=== PATIENT | female | born 1930 | race Caucasian/White ===

== ENCOUNTER 2016-10-05 11:52 | Outpatient (RCR) | payer MEDICARE, OTHER ==
--- OUTSIDE RECORDS SUMMARY | 2016-07-15 13:47 | XMS REPORT | Continuity of Care Document ---
Author Author [facility] Organization [facility] Address Unknown Phone Unavailable Care Team Providers Care Quality Control Industrial Engineer Name Role Phone RoAnthony pike PCP [phone] Source Comments Some departments are not documenting in the electronic medical record. If you do not see the information that you expected, contact Release of Information in the Health Information Management department at [phone] for further assistance in locating additional records.[facility] Active Allergies and Adverse Reactions Allergen Noted Date Severity Reactions Comments Lisinopril 05/22/2013 ANGIOEDEMA Patient has a history of chronic urticaria and angioedema, should not use angioedema. Current Medications Prescription Sig. Disp. Refills Start End Date Status Date hydrochlorothiazide Take 25 mg by mouth Active (HYDRODIURIL) 25 mg daily. tablet olmesartan(+) (BENICAR) Take 20 mg by mouth Active 20 mg tablet daily. glipiZIDE CR (GLUCOTROL Take 10 mg by mouth Active XL) 10 mg tablet daily. diphenhydrAMINE Take 25 mg by mouth every Active (BENADRYL) 25 mg capsule 6 hours as needed. omeprazole DR(+) Take 20 mg by mouth Active (PRILOSEC) 20 mg capsule daily. acetaminophen (TYLENOL) Take 500 mg by mouth Active 500 mg tablet every 6 hours as needed. ANTIOX Take by mouth. Active #11/OM3/DHA/EPA/LUT/GREGORY (OCUVITE ADULT 50+ PO) hydrOXYzine (ATARAX) 25 Take 1-4 tablets nightly 100 Tab 1 05/22/20 Active mg tablet for hives. May cause 13 sedation. cetirizine (ZYRTEC) 10 mg Take 1 Tab by mouth 90 Tab 3 05/22/20 Active tablet daily. 13 epinephrine(+) (EPIPEN Inject 0.3 mL to area(s) 2 Each 2 05/22/20 Active JR) 0.15 mg/0.3 mL as directed as Needed 13 (1:2,000) syringe (for severe swelling reaction, please seek emergent care). Active Problems Problem Noted Date Urticaria 05/22/2013 Overview: Urticaria etiology unknown, associated with angioedema. Outside labs revealed LFTs, eosinophils, and CA 125 were normal on 12/26/12. Negative urticaria/angioedema work up on 05/22/13. - Continue Hydroxyzine 25 mg qHS. If hives return, may increase by 25 mg nightly until symptoms resolve up to 100 mg per night. - Schedule f/u appt with PCP in 3 months - if symptoms continue to be well controlled on 25 mg Hydroxyzine, space to ever other night. If symptoms continue to be well controlled for another 3 months, may completely wean to see if Hydroxyzine is still necessary. May resume Hydroxyzine at any time if hives or angioedema returns. - Continue Zyrtec (cetirizine) 10 mg 1 tab a day - Try to avoid Benadryl, take if needed. - EpiPen Jr, X 2 and 2 refill prescribed in past (we did not give her the full dose due to her age and comorbidities) - Avoid SUSANA inhibitor Angioedema 05/22/2013 Overview: Angioedema is mostly facial, usually associated with urticaria. Has required intubation in past for swelling. - Angioedema and chronic urticaria lab work-up negative on 05/22/13 - EpiPen Jr, x2 and 2 refill prescribed today (we did not give her the full dose due to her age and comorbidities) - Avoid SUSANA inhibitor - Asked the patient to get a medical ID bracelet. Social History Tobacco Use Types Packs/Day Years Used Date Former Smoker 3 Quit: 01/06/1952 Alcohol Use Drinks/Week oz/Week Comments No Last Filed Vital Signs Vital Sign Reading Time Taken Blood Pressure 165/82 06/23/2013 11:03 AM CDT Pulse 79 06/23/2013 11:03 AM CDT Temperature 36.1 C (96.9 F) 06/23/2013 11:03 AM CDT Respiratory Rate 16 06/23/2013 11:03 AM CDT Height 1.636 m (5' 4.4") 06/23/2013 11:03 AM CDT Weight 81.194 kg (179 lb) 06/23/2013 11:03 AM CDT Body Mass Index 30.34 06/23/2013 11:03 AM CDT Oxygen Saturation - - Plan of Care Health Maintenance Due Date Last Done Comments Physical (Comprehensive) 1936 Exam Pertussis Vaccine 1940 Tetanus Vaccine 1946 Breast Cancer Screening 1969 Shingles Vaccine 1989 Osteoporosis Screening 1994 Prevnar/Pneumovax (#1) 1994 Influenza Vaccine 05/14/2015 Results from Last 3 Months Not on file
[2016-07-15 14:04] LABS: BASOPHILS % (AUTO) 0 % (0-10); EOSINOPHILS # (AUTO) 0.3 10^3/uL (0.0-0.3); EOSINOPHILS % (AUTO) 5 % (0-10); LYMPHOCYTES # (AUTO) 1.5 X 10^3 (1.0-4.0); LYMPHOCYTES % (AUTO) 24 % (12-44); MEAN CORPUSCULAR HEMOGLOBIN 30 PG (25-34); MEAN CORPUSCULAR HGB CONC 33 G/DL (32-36); MEAN CORPUSCULAR VOLUME 90 FL (80-99); MONOCYTES # (AUTO) 0.7 X 10^3 (0.0-1.0); MONOCYTES % (AUTO) 11 % (0-12); NEUTROPHILS # (AUTO) 3.9 X 10^3 (1.8-7.8); NEUTROPHILS % (AUTO) 61 % (42-75); PLATELET COUNT 234 10^3/uL (130-400); RED BLOOD COUNT 3.88 10^6/uL (4.35-5.85); RED CELL DISTRIBUTION WIDTH 12.7 % (10.0-14.5); WHITE BLOOD COUNT 6.4 10^3/uL (4.3-11.0)
[2016-07-15 14:31] LABS: ALBUMIN 3.7 G/DL (3.2-4.5); BILIRUBIN,TOTAL 0.2 MG/DL (0.1-1.0); CALCIUM 8.8 MG/DL (8.5-10.1); CREATININE SERUM 0.94 MG/DL (0.60-1.30); POTASSIUM 4.3 MMOL/L (3.6-5.0); TOTAL PROTEIN 6.2 G/DL (6.4-8.2)
[~2016-10-05 11:52] MED LIST: ALIS150T PO; ASP325T; ASP81TEC PO; AVALIDE; CETI10CA PO; DIAZ5TAB3 PO; DICL35CA PO; DIPH-633 PO; ETOD400T PO; FEXO-104 PO; GLBR2.5T; GLIM4TAB PO; GLIM4TAB56 PO; GLIP5TAB13 PO; GLYB1.253; HCT25T PO; HCTZ; HYDR-3062 PO; HYDR-31; HYDR-3820 PO; HYDR25TA4 PO; IRBE1TAB15; LORA10TA7 PO; METF500T4 PO; METH4TAB PO; MTF500T; MTF500T PO; OLME20TA21 PO; OLME20TA22 PO; OMEP-10; OMEP20TA33 PO; ONDA8TAB12 PO; ONDN4T; OXYC-12 PO; OXYC-465 PO; PRAV10TA PO; PRAV20TA3 PO; PRD20T PO; RANI25TA PO; RNT150T PO; ROCEPHIN IV; SIMV40TA2; SIMV40TA4 PO; [UNRECOGNIZED DRUG - REMARK]
[2016-10-05 13:11] LABS: BASOPHILS % (AUTO) 0 % (0-10); EOSINOPHILS # (AUTO) 0.3 10^3/uL (0.0-0.3); EOSINOPHILS % (AUTO) 5 % (0-10); LYMPHOCYTES # (AUTO) 1.7 X 10^3 (1.0-4.0); LYMPHOCYTES % (AUTO) 26 % (12-44); MEAN CORPUSCULAR HEMOGLOBIN 29 PG (25-34); MEAN CORPUSCULAR HGB CONC 33 G/DL (32-36); MEAN CORPUSCULAR VOLUME 89 FL (80-99); MEAN PLATELET VOLUME 8.9 FL (7.4-10.4); MONOCYTES # (AUTO) 0.7 X 10^3 (0.0-1.0); MONOCYTES % (AUTO) 11 % (0-12); NEUTROPHILS # (AUTO) 3.8 X 10^3 (1.8-7.8); NEUTROPHILS % (AUTO) 58 % (42-75); PLATELET COUNT 279 10^3/uL (130-400); RED BLOOD COUNT 4.11 10^6/uL (4.35-5.85); RED CELL DISTRIBUTION WIDTH 12.7 % (10.0-14.5); WHITE BLOOD COUNT 6.5 10^3/uL (4.3-11.0)
[2016-10-05 13:44] LABS: ALBUMIN 3.9 G/DL (3.2-4.5); BILIRUBIN,TOTAL 0.3 MG/DL (0.1-1.0); CALCIUM 9.3 MG/DL (8.5-10.1); CREATININE SERUM 1.17 MG/DL (0.60-1.30); POTASSIUM 4.5 MMOL/L (3.6-5.0); TOTAL PROTEIN 6.6 G/DL (6.4-8.2)
== END 2016-10-13 | disposition home or self-care (01) ==
LOC: ONC 11:52
PROVIDERS: ATTEND Internal Medicine Hematology & Oncology
DX: C56.2 Malignant neoplasm of left ovary (principal); C79.2 Secondary malignant neoplasm of skin; N18.3 Chronic kidney disease, stage 3 (moderate); M46.40 Discitis, unspecified, site unspecified; Z79.899 Other long term (current) drug therapy; Z92.21 Personal history of antineoplastic chemotherapy; Z45.2 Encounter for adjustment and management of vascular access device
CPT/HCPCS: 36591; 80053; 85025; 86304; 96523; 99213

== ENCOUNTER 2017-02-04 12:51 | Outpatient (RCR) | payer MEDICARE, OTHER ==
--- OUTSIDE RECORDS SUMMARY | 2016-11-23 13:07 | XMS REPORT | Continuity of Care Document ---
Author Author [facility] Organization [facility] Address Unknown Phone Unavailable Care Team Providers Care Medical Information Officer Name Role Phone RoAnthony pike PCP [phone] Source Comments Some departments are not documenting in the electronic medical record. If you do not see the information that you expected, contact Release of Information in the Health Information Management department at [phone] for further assistance in locating additional records.[facility] Active Allergies and Adverse Reactions Allergen [...]
[2016-12-28 12:57] LABS: BASOPHILS % (AUTO) 0 % (0-10); EOSINOPHILS # (AUTO) 0.2 10^3/uL (0.0-0.3); EOSINOPHILS % (AUTO) 3 % (0-10); LYMPHOCYTES # (AUTO) 1.4 X 10^3 (1.0-4.0); LYMPHOCYTES % (AUTO) 20 % (12-44); MEAN CORPUSCULAR HEMOGLOBIN 29 PG (25-34); MEAN CORPUSCULAR HGB CONC 32 G/DL (32-36); MEAN CORPUSCULAR VOLUME 89 FL (80-99); MEAN PLATELET VOLUME 9.2 FL (7.4-10.4); MONOCYTES # (AUTO) 0.7 X 10^3 (0.0-1.0); MONOCYTES % (AUTO) 10 % (0-12); NEUTROPHILS # (AUTO) 4.7 X 10^3 (1.8-7.8); NEUTROPHILS % (AUTO) 67 % (42-75); PLATELET COUNT 235 10^3/uL (130-400); RED BLOOD COUNT 4.13 10^6/uL (4.35-5.85); RED CELL DISTRIBUTION WIDTH 12.6 % (10.0-14.5); WHITE BLOOD COUNT 7.1 10^3/uL (4.3-11.0)
[2016-12-28 13:23] LABS: ALANINE AMINOTRANSFERASE 10 U/L (0-55); ALBUMIN 3.9 G/DL (3.2-4.5); ANION GAP 9 MMOL/L (5-14); ASPARTATE AMINO TRANSFERASE 19 U/L (5-34); BILIRUBIN,TOTAL 0.4 MG/DL (0.1-1.0); BLOOD UREA NITROGEN 20 MG/DL (7-18); BUN/CREATININE RATIO 23; CALCIUM 9.1 MG/DL (8.5-10.1); CARBON DIOXIDE 25 MMOL/L (21-32); CHLORIDE 100 MMOL/L (98-107); CREATININE SERUM 0.87 MG/DL (0.60-1.30); GFR ESTIMATED > 60; GLUCOSE 112 MG/DL (70-105); SODIUM 134 MMOL/L (135-145); TOTAL PROTEIN 6.7 G/DL (6.4-8.2)
== END 2017-02-21 | disposition home or self-care (01) ==
LOC: ONC 12:51
PROVIDERS: ATTEND Internal Medicine Hematology & Oncology
DX: C56.2 Malignant neoplasm of left ovary (principal); C79.2 Secondary malignant neoplasm of skin; N18.3 Chronic kidney disease, stage 3 (moderate); M46.40 Discitis, unspecified, site unspecified; Z79.899 Other long term (current) drug therapy; Z92.21 Personal history of antineoplastic chemotherapy; Z45.2 Encounter for adjustment and management of vascular access device
CPT/HCPCS: 36591; 80053; 85025; 86304; 96523; 99213

== ENCOUNTER 2017-06-10 10:55 | Outpatient (RCR) | payer MEDICARE, OTHER ==
[2017-03-18 11:51] LABS: BASOPHILS % (AUTO) 0 % (0-10); EOSINOPHILS # (AUTO) 0.2 10^3/uL (0.0-0.3); EOSINOPHILS % (AUTO) 2 % (0-10); LYMPHOCYTES # (AUTO) 1.5 X 10^3 (1.0-4.0); LYMPHOCYTES % (AUTO) 20 % (12-44); MEAN CORPUSCULAR HGB CONC 33 G/DL (32-36); MEAN CORPUSCULAR VOLUME 87 FL (80-99); MEAN PLATELET VOLUME 8.8 FL (7.4-10.4); MONOCYTES # (AUTO) 0.7 X 10^3 (0.0-1.0); MONOCYTES % (AUTO) 10 % (0-12); NEUTROPHILS % (AUTO) 68 % (42-75); PLATELET COUNT 304 10^3/uL (130-400); RED BLOOD COUNT 3.86 10^6/uL (4.35-5.85); RED CELL DISTRIBUTION WIDTH 12.7 % (10.0-14.5); WHITE BLOOD COUNT 7.4 10^3/uL (4.3-11.0)
[2017-03-18 11:52] LABS: MEAN CORPUSCULAR HEMOGLOBIN 28 PG (25-34)
[2017-03-18 12:30] LABS: ALBUMIN 3.7 GM/DL (3.2-4.5); BILIRUBIN,TOTAL 0.4 MG/DL (0.1-1.0); CALCIUM 9.5 MG/DL (8.5-10.1); CREATININE SERUM 1.03 MG/DL (0.60-1.30); POTASSIUM 4.4 MMOL/L (3.6-5.0); TOTAL PROTEIN 6.9 GM/DL (6.4-8.2)
[2017-06-10 11:13] LABS: BASOPHILS % (AUTO) 0 % (0-10); EOSINOPHILS # (AUTO) 0.2 10^3/uL (0.0-0.3); EOSINOPHILS % (AUTO) 3 % (0-10); LYMPHOCYTES # (AUTO) 1.5 X 10^3 (1.0-4.0); LYMPHOCYTES % (AUTO) 21 % (12-44); MEAN CORPUSCULAR HEMOGLOBIN 27 PG (25-34); MEAN CORPUSCULAR HGB CONC 32 G/DL (32-36); MEAN CORPUSCULAR VOLUME 85 FL (80-99); MEAN PLATELET VOLUME 8.8 FL (7.4-10.4); MONOCYTES # (AUTO) 0.8 X 10^3 (0.0-1.0); MONOCYTES % (AUTO) 11 % (0-12); NEUTROPHILS # (AUTO) 4.6 X 10^3 (1.8-7.8); NEUTROPHILS % (AUTO) 64 % (42-75); PLATELET COUNT 264 10^3/uL (130-400); RED BLOOD COUNT 4.07 10^6/uL (4.35-5.85); RED CELL DISTRIBUTION WIDTH 13.3 % (10.0-14.5); WHITE BLOOD COUNT 7.2 10^3/uL (4.3-11.0)
[2017-06-10 11:35] LABS: ALBUMIN 3.7 GM/DL (3.2-4.5); BILIRUBIN,TOTAL 0.3 MG/DL (0.1-1.0); CALCIUM 9.2 MG/DL (8.5-10.1); CREATININE SERUM 0.98 MG/DL (0.60-1.30); POTASSIUM 4.1 MMOL/L (3.6-5.0); TOTAL PROTEIN 6.9 GM/DL (6.4-8.2)
== END 2017-06-12 | disposition home or self-care (01) ==
LOC: ONC 10:55
PROVIDERS: ATTEND Internal Medicine Hematology & Oncology
DX: C56.2 Malignant neoplasm of left ovary (principal); C79.2 Secondary malignant neoplasm of skin; N18.3 Chronic kidney disease, stage 3 (moderate); M46.40 Discitis, unspecified, site unspecified; Z79.899 Other long term (current) drug therapy; Z92.21 Personal history of antineoplastic chemotherapy
CPT/HCPCS: 36591; 80053; 85025; 86304; 96523

== ENCOUNTER 2017-09-02 11:07 | Outpatient (RCR) | payer MEDICARE, OTHER | END 2017-09-15 | disposition home or self-care (01) | LOC: ONC 11:07 | PROVIDERS: ATTEND Internal Medicine Hematology & Oncology | DX: C56.2 Malignant neoplasm of left ovary (principal); C79.2 Secondary malignant neoplasm of skin; N18.3 Chronic kidney disease, stage 3 (moderate); M46.40 Discitis, unspecified, site unspecified; Z79.899 Other long term (current) drug therapy; Z92.21 Personal history of antineoplastic chemotherapy; Z45.2 Encounter for adjustment and management of vascular access device | CPT/HCPCS: 96523; 99213 ==

== ENCOUNTER 2017-11-01 05:48 | Outpatient (CLI) | payer MEDICARE, OTHER ==
[~2017-11-01] VITALS: Ht 165.1 cm; Wt 77.1 kg
[2017-11-01] MEDS ORDERED: ASPI-999 PO (10:31)
[2017-11-01] MEDS ORDERED: DIPH25CA PO (10:31)
== END 2017-11-01 10:33 ==
LOC: PREOP 05:48
PROVIDERS: ATTEND Surgery
DX: Z01.818 Encounter for other preprocedural examination (principal); Z12.11 Encounter for screening for malignant neoplasm of colon; D64.9 Anemia, unspecified

== ENCOUNTER 2017-11-03 09:44 | Day surgery (SDC) | payer MEDICARE, OTHER ==
[~2017-11-03] VITALS: Ht 165.1 cm; Wt 77.1 kg
[~2017-11-03 09:44] MED LIST changes: +ASPI-999 PO; +DIPH25CA PO; -OLME20TA22 PO
--- OUTSIDE RECORDS SUMMARY | 2017-11-03 09:47 | XMS REPORT | Clinical Summary ---
Author Author [facility] Organization [facility] Address Unknown Phone Unavailable Care Team Providers Care Executive Secretary Social Welfare Name Role Phone Brianna Barnett DO Unavailable Anthony Gonzalez MD PCP Source Comments Some departments are not documenting in the electronic medical record. If you do not see the information that you expected, contact Release of Information in the Health Information Management department at [phone] for further assistance in locating additional records.[facility] Allergies Active Allergy Reactions Severity Noted Date Comments Lisinopril ANGIOEDEMA 05/22/2013 Patient has a history of chronic urticaria [...] 01/06/1953 Alcohol Use Drinks/Week oz/Week Comments No Sex Assigned at Date Recorded Not on file Last Filed Vital Signs Vital Sign Reading Time Taken Blood Pressure 165/82 06/23/2013 11:03 AM CDT Pulse 79 06/23/2013 11:03 AM CDT Temperature 36.1 C (96.9 F) 06/23/2013 11:03 AM CDT Respiratory Rate 16 06/23/2013 11:03 AM CDT Oxygen Saturation - - Inhaled Oxygen - - Concentration Weight 81.2 kg (179 lb) 06/23/2013 11:03 AM CDT Height 163.6 cm (5' 4.4") 06/23/2013 11:03 AM CDT Body Mass Index 30.34 06/23/2013 11:03 AM CDT Plan of Treatment Health Maintenance Due Date Last Done Comments PHYSICAL (COMPREHENSIVE) 1937 EXAM PERTUSSIS VACCINE 1940 TETANUS VACCINE 1946 SHINGLES VACCINE 1989 OSTEOPOROSIS SCREENING 1994 PREVNAR/PNEUMOVAX (#1) 1994 INFLUENZA VACCINE 04/13/2017 Results Not on filefrom Last 3 Months
--- OUTSIDE RECORDS SUMMARY | 2017-11-03 09:51 | XMS REPORT | Continuity of Care Document ---
Author Author [facility] Organization [facility] Address Unknown Phone Unavailable Allergies Active Description Code Type Severity Reaction Onset Reported/Identified Relationship to Patient Clinical Status Yes TAPE TAPE Mild N/ A 07/24/2009 Yes prednisone [id number] Drug Allergy Unknown N/A 01/21/2010 Yes ranitidine [id number] Drug Allergy Unknown N/A 01/21/2010 Yes omeprazole [id number] Drug Allergy Moderate HIVES 03/08/2013 Yes fexofenadine [id number] Drug Allergy Unknown N/A 01/07/2015 Yes hydrochlorothiazide [id number] Drug Allergy Unknown N/A 01/07/2015 Yes irbesartan [id number] Drug Allergy Unknown N/A 01/07/2015 Medications There is no data. 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 08/12/1020 AUTUMN LINN Ot M46.40 DISCITIS, UNSPECIFIED, SITE UNSPECIFIED 08/12/1020 AUTUMN LINN Ot N18.3 CHRONIC KIDNEY DISEASE, STAGE 3 (MODERAT 08/12/1020 AUTUMN LINN Ot Z45.2 ENCOUNTER FOR ADJUSTMENT AND MANAGEMENT 08/12/1020 AUTUMN LINN Ot Z79.899 OTHER SENIOR LIVING (CURRENT) DRUG THERAPY 08/12/1020 AUTUMN LINN Ot Z92.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 ANTINEOPLASTIC CHEMO 04/05/2013 MECHELLE GREER ELECTRIC STOVE INSTALLER Ot 250.00 04/05/2013 MECHELLE GREER ELECTRIC STOVE INSTALLER Ot 272.0 04/05/2013 MECHELLE GREER ELECTRIC STOVE INSTALLER Ot 401.9 04/05/2013 MECHELLE GREER ELECTRIC STOVE INSTALLER Ot 995.1 04/05/2013 MECHELLE GREER ELECTRIC STOVE INSTALLER Ot V58.66 04/05/2013 GREERMECHELLE GALVEZ ELECTRIC STOVE INSTALLER Ot V58.69 08/17/2014 YARY PINZON FAC, [facility] CCDS Ot 272.4 08/17/2014 YARY PINZON FAC, [facility] CCDS Ot 414.00 08/27/2014 KAVEH, BOBAN N Ot 585.3 08/27/2014 KAVEH, BOBAN N Ot V10.43 08/27/2014 KAVEH, BOBAN N Ot V45.77 08/27/2014 KAVEH, BOBAN N Ot V58.69 08/27/2014 KAVEH, BOBAN N Ot V58.81 08/27/2014 KAVEH, BOBAN N Ot V67.2 08/28/2014 KAVEH, BOBAN N Ot 585.3 08/28/2014 KAVEH, BOBAN N Ot V10.43 08/28/2014 KAVEH, BOBAN N Ot V45.77 08/28/2014 KAVEH, BOBAN N Ot V58.69 08/28/2014 KAVEH, BOBAN N Ot V58.81 08/28/2014 KAVEH, BOBAN N Ot V67.2 10/11/2014 KAVEH, BOBAN N Ot 585.3 10/11/2014 KAVEH, BOBAN N Ot V10.43 10/11/2014 KAVEH, BOBAN N Ot V45.77 10/11/2014 KAVEH, BOBAN N Ot V58.69 10/11/2014 KAVEH, BOBAN N Ot V58.81 10/11/2014 KAVEH, BOBAN N Ot V67.2 11/01/2014 KAVEH, BOBAN N Ot 585.3 11/01/2014 KAVEH, BOBAN N Ot V10.43 11/01/2014 KAVEH, BOBAN N Ot V45.77 11/01/2014 KAVEH, BOBAN N Ot V58.69 11/01/2014 KAVEH, BOBAN N Ot V58.81 11/01/2014 KAVEH, BOBAN N Ot V67.2 11/25/2014 KAVEH, BOBAN N Ot 585.3 11/25/2014 KAVEH, BOBAN N Ot V10.43 11/25/2014 KAVEH, BOBAN N Ot V45.77 11/25/2014 KAVEH, BOBAN N Ot V58.69 11/25/2014 KAVEH, BOBAN N Ot V58.81 11/25/2014 KAVEH, BOBAN N Ot V67.2 12/31/2014 KAVEH, BOBAN N Ot 585.3 12/31/2014 KAVEH, BOBAN N Ot V10.43 12/31/2014 KAVEH, BOBAN N Ot V45.77 12/31/2014 KAVEH, BOBAN N Ot V58.69 12/31/2014 KAVEH, BOBAN N Ot V58.81 12/31/2014 KAVEH, BOBAN N Ot V67.2 12/31/2014 KAVEH, BOBAN N Ot 585.3 12/31/2014 KAVEH, BOBAN N Ot V10.43 12/31/2014 KAVEH, BOBAN N Ot V45.77 12/31/2014 KAVEH, BOBAN N Ot V58.69 12/31/2014 KAVEH, BOBAN N Ot V58.81 12/31/2014 KAVEH, BOBAN N Ot V67.2 12/31/2014 KAVEH, BOBAN N Ot 585.3 12/31/2014 KAVEH, BOBAN N Ot V10.43 12/31/2014 KAVEH, BOBAN N Ot V45.77 12/31/2014 KAVEH, BOBAN N Ot V58.69 12/31/2014 KAVEH, BOBAN N Ot V58.81 12/31/2014 KAVEH, BOBAN N Ot V67.2 01/01/2015 KAVEH, BOBAN N Ot 585.3 01/01/2015 KAVEH, BOBAN N Ot V10.43 01/01/2015 KAVEH, BOBAN N Ot V45.77 01/01/2015 KAVEH, BOBAN N Ot V58.69 01/01/2015 KAVEH, BOBAN N Ot V58.81 01/01/2015 KAVEH, BOBAN N Ot V67.2 02/07/2015 VIRAL PINZON, MIQUEL Ot 122.3 02/07/2015 VIRAL PINZON, MIQUEL Ot 183.0 02/07/2015 VIRAL PINZON, MIQUEL Ot 250.00 02/07/2015 VIRAL PINZON, MIQUEL Ot 272.0 02/07/2015 VIRAL PINZON, MIQUEL Ot 401.9 02/07/2015 VIRAL PINZON, MIQUEL Ot 455.0 02/07/2015 VIRAL PINZON, MIQUEL Ot 562.10 02/07/2015 VIRAL PINZON, MIQUEL Ot 715.35 02/09/2015 KESSLER GARDENIA AGUIRRE Kallie Ot 789.30 02/11/2015 KAVEH, BOBAN N Ot 585.3 02/11/2015 KAVEH, BOBAN N Ot V10.43 02/11/2015 KAVEH, BOBAN N Ot V45.77 02/11/2015 KAVEH, BOBAN N Ot V58.69 02/11/2015 KAVEH, BOBAN N Ot V58.81 02/11/2015 KAVEH, BOBAN N Ot V67.2 03/06/2015 DHARMESH ALVARADO S BOTTOM IRONER Ot 585.3 03/06/2015 ALVARADODHARMESH Kc S BOTTOM IRONER Ot V10.43 03/06/2015 ALVARADO, HILAH S BOTTOM IRONER Ot V45.77 03/06/2015 ALVARADO HILAH S BOTTOM IRONER Ot V58.69 03/06/2015 ALVARADO HILAH S BOTTOM IRONER Ot V58.81 03/06/2015 ALVARADO HILMISSY S BOTTOM IRONER Ot V67.2 03/07/2015 VIRAL PINZON, MIQUEL Ot 789.30 03/07/2015 VIRAL PINZON, MIQUEL Ot V10.43 03/07/2015 VIRAL PINZON, MIQUEL Ot V72.63 03/07/2015 VIRAL PINZON, MIQUEL Ot V74.8 03/14/2015 SAMI PINZON, YO R Ot 250.00 03/19/2015 KAVEH, BOBAN N Ot 585.3 03/19/2015 KAVEH, BOBAN N Ot V10.43 03/19/2015 KAVEH, BOBAN N Ot V45.77 03/19/2015 KAVEH, BOBAN N Ot V58.69 03/19/2015 KAVEH, BOBAN N Ot V58.81 03/19/2015 KAVEH, BOBAN N Ot V67.2 03/31/2015 KAVEH, BOBAN N Ot 585.3 03/31/2015 KAVEH, BOBAN N Ot V10.43 03/31/2015 KAVEH, BOBAN N Ot V45.77 03/31/2015 KAVEH, BOBAN N Ot V58.69 03/31/2015 KAVEH, BOBAN N Ot V58.81 03/31/2015 KAVEH, BOBAN N Ot V67.2 04/02/2015 KAVEH, BOBAN N Ot 585.3 04/02/2015 KAVEH, BOBAN N Ot V10.43 04/02/2015 KAVEH, BOBAN N Ot V45.77 04/02/2015 KAVEH, BOBAN N Ot V58.69 04/02/2015 KAVEH, BOBAN N Ot V58.81 04/02/2015 KAVEH, BOBAN N Ot V67.2 04/03/2015 KAVEH, BOBAN N Ot 585.3 04/03/2015 KAVEH, BOBAN N Ot V10.43 04/03/2015 KAVEH, BOBAN N Ot V45.77 04/03/2015 KAVEH, BOBAN N Ot V58.69 04/03/2015 KAVEH, BOBAN N Ot V58.81 04/03/2015 KAVEH, BOBAN N Ot V67.2 04/11/2015 KAVEH, BOBAN N Ot 183.0 04/11/2015 KAVEH, BOBAN N Ot 585.3 04/11/2015 KAVEH, BOBAN N Ot V45.77 04/11/2015 KAVEH, BOBAN N Ot V58.11 04/11/2015 KAVEH, BOBAN N Ot V58.69 04/16/2015 KAVEH, BOBAN N Ot 183.0 04/16/2015 KAVEH, BOBAN N Ot 585.3 04/16/2015 KAVEH, BOBAN N Ot V45.77 04/16/2015 KAVEH, BOBAN N Ot V58.11 04/16/2015 KAVEH, BOBAN N Ot V58.69 04/27/2015 MECHELLE GREER ELECTRIC STOVE INSTALLER Ot 250.00 04/27/2015 MECHELLE GREER ELECTRIC STOVE INSTALLER Ot 724.5 05/10/2015 DHARMESH ALVARADO BOTTOM IRONER Ot 183.0 05/10/2015 DHARMESH ALVARADO BOTTOM IRONER Ot 198.2 05/10/2015 DHARMESH ALVARADO BOTTOM IRONER Ot 357.6 05/10/2015 DHARMESH ALVARADO BOTTOM IRONER Ot 528.9 05/10/2015 DHARMESH ALVARADO BOTTOM IRONER Ot 585.3 05/10/2015 DHARMESH ALVARADO BOTTOM IRONER Ot 787.91 05/10/2015 DHARMESH ALVARADO BOTTOM IRONER Ot E849.7 05/10/2015 DHARMESH ALVARADO BOTTOM IRONER Ot E933.1 05/10/2015 DHARMESH ALVARADO BOTTOM IRONER Ot V58.69 05/10/2015 DHARMESH ALVARADO BOTTOM IRONER Ot V88.01 05/14/2015 SAMI PINZON, YO R Ot 199.0 05/14/2015 SAMI PINZON, YO R Ot 250.00 05/14/2015 SAMI PINZON, YO R Ot 285.9 05/14/2015 SAMI PINZON, YO R Ot 311 05/14/2015 SAMI PINZON, YO R Ot 333.81 05/14/2015 SAMI PINZON, YO R Ot 493.90 05/14/2015 SAMI PINZON, YO R Ot 530.81 05/14/2015 SAMI PINZON, YO R Ot 564.09 05/14/2015 SAMI PINZON, YO R Ot 715.09 05/14/2015 SAMI PINZON, YO R Ot 722.93 05/14/2015 SAMI PINZON, YO R Ot 730.28 05/14/2015 SAMI PINZON, YO R Ot 733.13 05/14/2015 SAMI PINZON, YO R Ot V10.43 05/14/2015 SAMI PINZON, YO R Ot V12.79 05/14/2015 SAMI PINZON, YO R Ot V15.82 05/14/2015 SAMI PINZON, YO R Ot V58.69 05/14/2015 KAVEH BOBAN N Ot 183.0 05/14/2015 KAVEH, BOBEZE N Ot 585.3 05/14/2015 AUTUMN LINN N Ot V45.77 05/14/2015 KAVEH, BOBAN N Ot V58.11 05/14/2015 KAVEH, BOBAN N Ot V58.69 05/21/2015 SAMI PINZON, YO R Ot 276.8 05/22/2015 SAMI PINZON, YO R Ot 276.8 05/23/2015 SAMI PINZON, YO R Ot 276.8 05/24/2015 SAMI PINZON, YO R Ot 276.8 05/25/2015 SAMI PINZON, YO R Ot 276.8 05/25/2015 SAMI PINZON, YO R Ot 276.8 05/26/2015 SAMI PINZON, YO R Ot 276.8 05/27/2015 SAMI PINZON, YO R Ot 276.8 05/28/2015 SAMI PINZON, YO R Ot 276.8 05/29/2015 SAMI PINZON, YO R Ot 276.8 05/30/2015 SAMI PINZON, YO R Ot 276.8 05/30/2015 AUTUMN LINN N Ot 183.0 05/30/2015 AUTUMN LINN Ot 585.3 05/30/2015 AUTUMN LINN Ot V45.77 05/30/2015 AUTUMN LINN Ot V58.11 05/30/2015 AUTUMN LINN N Ot V58.69 05/31/2015 SAMI PINZON, YO R Ot 276.8 06/01/2015 SAMI PINZON, YO R Ot 276.8 06/02/2015 SAMI PINZON, YO R Ot 276.8 06/03/2015 SAMI PINZON, YO R Ot 276.8 06/04/2015 SAMI PINZON, YO R Ot 276.8 06/05/2015 SAMI PINZON, YO R Ot 276.8 06/06/2015 SAMI PINZON, YO R Ot 276.8 06/07/2015 SAMI PINZON, YO R Ot 276.8 06/08/2015 SAMI PINZON, YO R Ot 276.8 06/09/2015 SAMI PINZON, YO R Ot 276.8 06/10/2015 SAMI PINZON, YO R Ot 276.8 06/11/2015 SAMI PINZON, YO R Ot 276.8 06/12/2015 AUTUMN LINN N Ot 183.0 06/12/2015 AUTUMN LINN N Ot 585.3 06/12/2015 AUTUMN LINN N Ot V45.77 06/12/2015 AUTUMN LINN N Ot V58.11 06/12/2015 AUTUMN LINN N Ot V58.69 06/12/2015 SAMI PINZON, YO R Ot 276.8 06/13/2015 SAMI PINZON, YO R Ot 276.8 06/17/2015 SAMI PINZON, YO R Ot C56.9 06/17/2015 SAMI PINZON, YO R Ot C79.9 06/17/2015 SAMI PINZON, YO R Ot E11.9 06/17/2015 SAMI PINZON, YO R Ot J18.9 06/17/2015 SAMI PINZON, YO R Ot J44.9 06/17/2015 SAMI PINZON, YO R Ot K21.9 06/17/2015 SAMI PINZON, YO R Ot M46.40 06/17/2015 SAMI PINZON, YO R Ot Z79.2 06/17/2015 SAMI PINZON, YO R Ot Z87.891 06/18/2015 SAMI PINZON, YO R Ot C56.9 06/18/2015 SAMI PINZON, YO R Ot C79.9 06/18/2015 SAMI PINZON, YO R Ot E11.9 06/18/2015 SAMI PINZON, YO R Ot J18.9 06/18/2015 SAMI PINZON, YO R Ot J44.9 06/18/2015 SAMI PINZON, YO R Ot K21.9 06/18/2015 SAMI PINZON, YO R Ot M46.40 06/18/2015 SAMI PINZON, YO R Ot Z79.2 06/18/2015 SAMI PINZON, YO R Ot Z87.891 06/18/2015 SAMI PINZON, YO R Ot C56.9 06/18/2015 SAMI PINZON, YO R Ot C79.9 06/18/2015 SAMI PINZON, YO R Ot E11.9 06/18/2015 SAMI PINZON, YO R Ot J18.9 06/18/2015 SAMI PINZON, YO R Ot J44.9 06/18/2015 SAMI PINZON, YO R Ot K21.9 06/18/2015 SAMI PINZON, YO R Ot M46.40 06/18/2015 SAMI PINZON, YO R Ot Z79.2 06/18/2015 SAMI PINZON, YO R Ot Z87.891 06/18/2015 SAMI PINZON, YO R Ot C56.9 06/18/2015 SAMI PINZON, YO R Ot C79.9 06/18/2015 SAMI PINZON, YO R Ot E11.9 06/18/2015 SAMI PINZON, YO R Ot J18.9 06/18/2015 SAMI PINZON, YO R Ot J44.9 06/18/2015 SAMI PINZON, YO R Ot K21.9 06/18/2015 SAMI PINZON, YO R Ot M46.40 06/18/2015 SAMI PINZON, YO R Ot Z79.2 06/18/2015 SAMI PINZON, YO R Ot Z87.891 06/19/2015 SAMI PINZON, YO R Ot 276.8 06/19/2015 SAMI PINZON, YO R Ot 276.8 06/20/2015 SAMI PINZON, YO R Ot 276.8 06/21/2015 SAMI PINZON, YO R Ot 276.8 06/24/2015 SAMI PINZON, YO R Ot 276.8 06/25/2015 SAMI PINZON, YO R Ot 276.8 06/26/2015 SAMI PINZON, YO R Ot 276.8 07/24/2015 DHARMESH ALVARADO BOTTOM IRONER Ot C56.9 07/24/2015 DHARMESH ALVARADO BOTTOM IRONER Ot C79.2 07/24/2015 DHARMESH ALVARADO BOTTOM IRONER Ot N18.3 07/24/2015 DHARMESH ALVARADO BOTTOM IRONER Ot Z79.899 07/25/2015 AUTUMN LINN Ot 183.0 07/25/2015 KAVEHAUTUMN TURNER Ot 585.3 07/25/2015 KAVEHAUTUMN TURENR Ot V45.77 07/25/2015 KAVEHAUTUMN TURNER N Ot V58.11 07/25/2015 KAVEHAUTUMN TURNER N Ot V58.69 07/31/2015 ZO HOUSTON DO Ot R06.00 08/13/2015 SAMI PINZON, YO R Ot 276.8 08/30/2015 KAVEH, BOBAN N Ot 183.0 08/30/2015 KAVEH, BOBAN N Ot 585.3 08/30/2015 KAVEH, BOBAN N Ot V45.77 08/30/2015 KAVEH, BOBAN N Ot V58.11 08/30/2015 KAVEH, BOBAN N Ot V58.69 09/11/2015 SAMI PINZON, YO R Ot M46.40 09/18/2015 KAVEH, BOBAN N Ot C56.2 09/18/2015 KAVEH, BOBAN N Ot C79.2 09/18/2015 KAVEH, BOBAN N Ot M46.40 09/18/2015 KAVEH, BOBAN N Ot N18.3 09/18/2015 KAVEH, BOBAN N Ot Z79.899 09/18/2015 KAVEH, BOBAN N Ot Z92.21 10/30/2015 KAVEH, BOBAN N Ot C56.2 10/30/2015 KAVEH, BOBAN N Ot C79.2 10/30/2015 KAVEH, BOBAN N Ot M46.40 10/30/2015 KAVEH, BOBAN N Ot N18.3 10/30/2015 KAVEH, BOBAN N Ot Z79.899 10/30/2015 KAVEH, BOBAN N Ot Z92.21 11/14/2015 DHARMESH ALVARADO S BOTTOM IRONER Ot C56.2 11/14/2015 DHARMESH ALVARADO S BOTTOM IRONER Ot C79.2 11/14/2015 DHARMESH ALVARADO S BOTTOM IRONER Ot M46.40 11/14/2015 DHARMESH ALVARADO S BOTTOM IRONER Ot N18.3 11/14/2015 CHARLES ALVARADOAH S BOTTOM IRONER Ot Z79.899 11/14/2015 CHARLES ALVARADOAH S BOTTOM IRONER Ot Z92.21 11/15/2015 JOJO INIGUEZ BOTTOM IRONER Ot E78.0 11/15/2015 JOJO INIGUEZ BOTTOM IRONER Ot I10 11/15/2015 JOJO INIGUEZ BOTTOM IRONER Ot I25.10 11/15/2015 JOJO INIGUEZ BOTTOM IRONER Ot I73.9 11/15/2015 JOJO INIGUEZ BOTTOM IRONER Ot I77.9 01/03/2016 KAVEH, BOBAN N Ot 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 01/03/2016 KAVEH, BOBAN N Ot 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 01/03/2016 KAVEH, BOBAN N Ot M46.40 DISCITIS, UNSPECIFIED, SITE UNSPECIFIED 01/03/2016 KAVEH BOBAN N Ot N18.3 CHRONIC KIDNEY DISEASE, STAGE 3 (MODERAT 01/03/2016 KAVEH BOBAN N Ot Z45.2 ENCOUNTER FOR ADJUSTMENT AND MANAGEMENT 01/03/2016 KAVEH BOBAN N Ot Z79.899 OTHER SENIOR LIVING (CURRENT) DRUG THERAPY 01/03/2016 KAVEH, BOBAN N Ot Z92.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 ANTINEOPLASTIC CHEMO 01/12/2016 Ot 183.0 03/10/2016 KAVEHAUTUMN N Ot 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 03/10/2016 KAVEH BOBAN N Ot 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 03/10/2016 KAVEH, BOBAN N Ot M46.40 DISCITIS, UNSPECIFIED, SITE UNSPECIFIED 03/10/2016 KAVEH, BOBEZE N Ot N18.3 CHRONIC KIDNEY DISEASE, STAGE 3 (MODERAT 03/10/2016 KAVEH, BOBAN N Ot Z45.2 ENCOUNTER FOR ADJUSTMENT AND MANAGEMENT 03/10/2016 KAVEH, BOBAN N Ot Z79.899 OTHER SENIOR LIVING (CURRENT) DRUG THERAPY 03/10/2016 KAVEH, BOBAN N Ot Z92.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 ANTINEOPLASTIC CHEMO 03/13/2016 Ot 183.0 04/17/2016 KAVEHAUTUMN N Ot 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 04/17/2016 KAVEH BOBAN N Ot 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 04/17/2016 KAVEH, BOBAN N Ot M46.40 DISCITIS, UNSPECIFIED, SITE UNSPECIFIED 04/17/2016 KAVEH, BOBAN N Ot N18.3 CHRONIC KIDNEY DISEASE, STAGE 3 (MODERAT 04/17/2016 KAVEH, BOBAN N Ot Z45.2 ENCOUNTER FOR ADJUSTMENT AND MANAGEMENT 04/17/2016 KAVEH, BOBAN N Ot Z79.899 OTHER SAIL REPAIR PERSON (CURRENT) DRUG THERAPY 04/17/2016 KAVEH, BOBAN N Ot Z92.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 ANTINEOPLASTIC CHEMO 04/17/2016 SAMI PINZON, YO R Ot E11.9 TYPE 2 DIABETES MELLITUS WITHOUT COMPLIC 04/17/2016 SAMI PINZON YO R Ot 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 [place] [facility] ART W 04/17/2016 MARINA GALLARDO MDYD R Ot E11.9 TYPE 2 DIABETES MELLITUS WITHOUT COMPLIC 04/17/2016 SAMI PINZON YO R Ot 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 [place] [facility] ART W 04/20/2016 SAMI PINZON YO R Ot E11.9 TYPE 2 DIABETES MELLITUS WITHOUT COMPLIC 04/20/2016 SAMI PINZON YO R Ot 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 [place] [facility] ART W 04/20/2016 YO GALLARDO MD R Ot E11.9 TYPE 2 DIABETES MELLITUS WITHOUT COMPLIC 04/20/2016 YO GALLARDO MD R Ot E78.4 OTHER HYPERLIPIDEMIA 04/20/2016 SAMI PINZON YO R Ot I10 ESSENTIAL (PRIMARY) HYPERTENSION 04/20/2016 SAMI PINZON YO R Ot 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 [place] [facility] ART W 04/20/2016 SAMI PINZON YO R Ot I73.9 PERIPHERAL VASCULAR DISEASE, UNSPECIFIED 04/23/2016 YO GALLARDO MD R Ot E11.9 TYPE 2 DIABETES MELLITUS WITHOUT COMPLIC 04/23/2016 YO GALLARDO MD R Ot E78.4 OTHER HYPERLIPIDEMIA 04/23/2016 SAMI PINZON YO R Ot I10 ESSENTIAL (PRIMARY) HYPERTENSION 04/23/2016 SAMI PINZON YO R Ot 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 [place] [facility] ART W 04/23/2016 SAMI PINZON YO R Ot I73.9 PERIPHERAL VASCULAR DISEASE, UNSPECIFIED 04/24/2016 DHARMESH ALVARADOP Ot 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 04/24/2016 DHARMESH ALVARADO Ot 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 04/24/2016 DHARMESH ALVARADOP Ot M46.40 DISCITIS, UNSPECIFIED, SITE UNSPECIFIED 04/24/2016 DHARMESH ALVARADOP Ot N18.3 CHRONIC KIDNEY DISEASE, STAGE 3 (MODERAT 04/24/2016 DHARMESH ALVARADO BOTTOM IRONER Ot Z79.899 OTHER SENIOR LIVING (CURRENT) DRUG THERAPY 04/24/2016 DHARMESH ALVARADO BOTTOM IRONER Ot Z92.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 ANTINEOPLASTIC CHEMO 05/08/2016 SAMI PINZON, YO R Ot E11.9 TYPE 2 DIABETES MELLITUS WITHOUT COMPLIC 05/08/2016 SAMI PINZON, YO R Ot E78.4 OTHER HYPERLIPIDEMIA 05/08/2016 SAMI PINZON, YO R Ot I10 ESSENTIAL (PRIMARY) HYPERTENSION 05/08/2016 SAMI PINZON, YO R Ot 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 [place] [facility] ART W 05/08/2016 SAMI PINZON, YO R Ot I73.9 PERIPHERAL VASCULAR DISEASE, UNSPECIFIED 05/15/2016 DHARMESH ALVARADOP Ot 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 05/15/2016 DHARMESH ALVARADO BOTTOM IRONER Ot 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 05/15/2016 DHARMESH ALVARADO BOTTOM IRONER Ot M46.40 DISCITIS, UNSPECIFIED, SITE UNSPECIFIED 05/15/2016 DHARMESH ALVARADOP Ot N18.3 CHRONIC KIDNEY DISEASE, STAGE 3 (MODERAT 05/15/2016 DHARMESH ALVARADO BOTTOM IRONER Ot Z79.899 OTHER SENIOR LIVING (CURRENT) DRUG THERAPY 05/15/2016 DHARMESH ALVARADO BOTTOM IRONER Ot Z92.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 ANTINEOPLASTIC CHEMO 06/04/2016 AUTUMN LINN Ot 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 06/04/2016 AUTUMN LINN N Ot 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 06/04/2016 AUTUMN LINN N Ot M46.40 DISCITIS, UNSPECIFIED, SITE UNSPECIFIED 06/04/2016 AUTUMN LINN N Ot N18.3 CHRONIC KIDNEY DISEASE, STAGE 3 (MODERAT 06/04/2016 AUTUMN LINN N Ot Z45.2 ENCOUNTER FOR ADJUSTMENT AND MANAGEMENT 06/04/2016 AUTUMN LINN N Ot Z79.899 OTHER SAIL REPAIR PERSON (CURRENT) DRUG THERAPY 06/04/2016 AUTUMN LINN N Ot Z92.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 ANTINEOPLASTIC CHEMO 06/13/2016 SAMI PINZON, YO R Ot 276.8 HYPOPOTASSEMIA 06/22/2016 AUTUMN LINN Ot 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 06/22/2016 KAVEHMANASAN N Ot 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 06/22/2016 KAVEH BOBAN N Ot M46.40 DISCITIS, UNSPECIFIED, SITE UNSPECIFIED 06/22/2016 KAVEH BOBEZE N Ot N18.3 CHRONIC KIDNEY DISEASE, STAGE 3 (MODERAT 06/22/2016 KAVEHAUTUMN N Ot Z45.2 ENCOUNTER FOR ADJUSTMENT AND MANAGEMENT 06/22/2016 KAVEH BOBAN N Ot Z79.899 OTHER SAIL REPAIR PERSON (CURRENT) DRUG THERAPY 06/22/2016 KAVEH, BOBAN N Ot Z92.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 ANTINEOPLASTIC CHEMO 07/14/2016 KAVEH, BOBAN N Ot 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 07/14/2016 KAVEH BOBEZE N Ot 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 07/14/2016 KAVEH BOBAN N Ot M46.40 DISCITIS, UNSPECIFIED, SITE UNSPECIFIED 07/14/2016 KAVEH BOBEZE N Ot N18.3 CHRONIC KIDNEY DISEASE, STAGE 3 (MODERAT 07/14/2016 KAVEH BOBEZE N Ot Z45.2 ENCOUNTER FOR ADJUSTMENT AND MANAGEMENT 07/14/2016 KAVEH BOBAN N Ot Z79.899 OTHER SAIL REPAIR PERSON (CURRENT) DRUG THERAPY 07/14/2016 KAVEH, BOBAN N Ot Z92.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 ANTINEOPLASTIC CHEMO 07/16/2016 KAVEH BOBAN N Ot 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 07/16/2016 KAVEHAUTUMN N Ot 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 07/16/2016 KAVEH BOBAN N Ot M46.40 DISCITIS, UNSPECIFIED, SITE UNSPECIFIED 07/16/2016 KAVEH BOBAN N Ot N18.3 CHRONIC KIDNEY DISEASE, STAGE 3 (MODERAT 07/16/2016 KAVEH, BOBAN N Ot Z45.2 ENCOUNTER FOR ADJUSTMENT AND MANAGEMENT 07/16/2016 KAVEH, BOBAN N Ot Z79.899 OTHER SENIOR LIVING (CURRENT) DRUG THERAPY 07/16/2016 KAVEH, BOBAN N Ot Z92.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 ANTINEOPLASTIC CHEMO 08/13/2016 Ot 183.0 09/10/2016 KAVEH BOBAN N Ot 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 09/10/2016 KAVEH, BOBAN N Ot 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 09/10/2016 KAVEHAUTUMN N Ot M46.40 DISCITIS, UNSPECIFIED, SITE UNSPECIFIED 09/10/2016 AUTUMN LINN N Ot N18.3 CHRONIC KIDNEY DISEASE, STAGE 3 (MODERAT 09/10/2016 KAVEHAUTUMN TURNER N Ot Z79.899 OTHER SENIOR LIVING (CURRENT) DRUG THERAPY 09/10/2016 KAVEHAUTUMN TURNER N Ot Z92.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 ANTINEOPLASTIC CHEMO 10/13/2016 AUTUMN LINN N Ot 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 10/13/2016 KAVEHAUTUMN N Ot 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 10/13/2016 AUTUMN LINN N Ot M46.40 DISCITIS, UNSPECIFIED, SITE UNSPECIFIED 10/13/2016 AUTUMN LINN N Ot N18.3 CHRONIC KIDNEY DISEASE, STAGE 3 (MODERAT 10/13/2016 KAVEHAUTUMN N Ot Z79.899 OTHER SENIOR LIVING (CURRENT) DRUG THERAPY 10/13/2016 KAVEHAUTUMN N Ot Z92.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 ANTINEOPLASTIC CHEMO 10/14/2016 AUTUMN LINN N Ot 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 10/14/2016 AUTUMN LINN N Ot 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 10/14/2016 AUTUMN LINN N Ot M46.40 DISCITIS, UNSPECIFIED, SITE UNSPECIFIED 10/14/2016 AUTUMN LINN N Ot N18.3 CHRONIC KIDNEY DISEASE, STAGE 3 (MODERAT 10/14/2016 AUTUMN LINN N Ot Z45.2 ENCOUNTER FOR ADJUSTMENT AND MANAGEMENT 10/14/2016 AUTUMN LINN N Ot Z79.899 OTHER SAIL REPAIR PERSON (CURRENT) DRUG THERAPY 10/14/2016 KAVEHMANASAN N Ot Z92.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 ANTINEOPLASTIC CHEMO 11/24/2016 AUTUMN LINN N Ot 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 11/24/2016 KAVEHAUTUMN TURNER N Ot 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 11/24/2016 KAVEHAUTUMN TURNER N Ot M46.40 DISCITIS, UNSPECIFIED, SITE UNSPECIFIED 11/24/2016 AUTUMN LINN N Ot N18.3 CHRONIC KIDNEY DISEASE, STAGE 3 (MODERAT 11/24/2016 KAVEH BOBAN N Ot Z45.2 ENCOUNTER FOR ADJUSTMENT AND MANAGEMENT 11/24/2016 KAVEH, BOBAN N Ot Z79.899 OTHER SAIL REPAIR PERSON (CURRENT) DRUG THERAPY 11/24/2016 KAVEH, BOBAN N Ot Z92.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 ANTINEOPLASTIC CHEMO 12/12/2016 Ot 183.0 01/04/2017 KAVEH, BOBAN N Ot 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 01/04/2017 KAVEH, BOBAN N Ot 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 01/04/2017 KAVEH, BOBAN N Ot M46.40 DISCITIS, UNSPECIFIED, SITE UNSPECIFIED 01/04/2017 KAVEH, BOBAN N Ot N18.3 CHRONIC KIDNEY DISEASE, STAGE 3 (MODERAT 01/04/2017 KAVEH, BOBAN N Ot Z45.2 ENCOUNTER FOR ADJUSTMENT AND MANAGEMENT 01/04/2017 KAVEH, BOBAN N Ot Z79.899 OTHER SAIL REPAIR PERSON (CURRENT) DRUG THERAPY 01/04/2017 KAVEH, BOBAN N Ot Z92.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 ANTINEOPLASTIC CHEMO 02/21/2017 KAVEH, BOBAN N Ot 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 02/21/2017 KAVEH, BOBAN N Ot 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 02/21/2017 KAVEH, BOBAN N Ot M46.40 DISCITIS, UNSPECIFIED, SITE UNSPECIFIED 02/21/2017 KAVEH, BOBAN N Ot N18.3 CHRONIC KIDNEY DISEASE, STAGE 3 (MODERAT 02/21/2017 KAVEH, BOBAN N Ot Z45.2 ENCOUNTER FOR ADJUSTMENT AND MANAGEMENT 02/21/2017 KAVEH, BOBAN N Ot Z79.899 OTHER SENIOR LIVING (CURRENT) DRUG THERAPY 02/21/2017 KAVEH, BOBAN N Ot Z92.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 ANTINEOPLASTIC CHEMO 03/19/2017 KAVEH, BOBAN N Ot 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 03/19/2017 KAVEH, BOBAN N Ot 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 03/19/2017 KAVEH, BOBAN N Ot M46.40 DISCITIS, UNSPECIFIED, SITE UNSPECIFIED 03/19/2017 KAVEH, BOBAN N Ot N18.3 CHRONIC KIDNEY DISEASE, STAGE 3 (MODERAT 03/19/2017 KAVEH, BOBAN N Ot Z79.899 OTHER SENIOR LIVING (CURRENT) DRUG THERAPY 03/19/2017 KAVEH, BOBAN N Ot Z92.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 ANTINEOPLASTIC CHEMO 05/10/2017 KAVEH, AUTUMN N Ot 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 05/10/2017 KAVEH, BOBAN N Ot 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 05/10/2017 KAVEH, BOBAN N Ot M46.40 DISCITIS, UNSPECIFIED, SITE UNSPECIFIED 05/10/2017 KAVEH BOBEZE N Ot N18.3 CHRONIC KIDNEY DISEASE, STAGE 3 (MODERAT 05/10/2017 KAVEH, BOBAN N Ot Z79.899 OTHER SENIOR LIVING (CURRENT) DRUG THERAPY 05/10/2017 KAVEH, BOBAN N Ot Z92.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 ANTINEOPLASTIC CHEMO 05/14/2017 Ot 183.0 05/14/2017 SAMI PINZON, YO R Ot 276.8 HYPOPOTASSEMIA 06/12/2017 KAVEH, BOBAN N Ot 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 06/12/2017 KAVEH, BOBEZE N Ot 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 06/12/2017 KAVEH, BOBAN N Ot M46.40 DISCITIS, UNSPECIFIED, SITE UNSPECIFIED 06/12/2017 KAVEH, BOBAN N Ot N18.3 CHRONIC KIDNEY DISEASE, STAGE 3 (MODERAT 06/12/2017 KAVEH, BOBAN N Ot Z79.899 OTHER SENIOR LIVING (CURRENT) DRUG THERAPY 06/12/2017 KAVEH, BOBAN N Ot Z92.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 ANTINEOPLASTIC CHEMO 06/18/2017 KAVEH, BOBAN N Ot 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 06/18/2017 KAVEH, BOBAN N Ot 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 06/18/2017 KAVEH, BOBAN N Ot M46.40 DISCITIS, UNSPECIFIED, SITE UNSPECIFIED 06/18/2017 KAVEH, BOBAN N Ot N18.3 CHRONIC KIDNEY DISEASE, STAGE 3 (MODERAT 06/18/2017 KAVEH, BOBAN N Ot Z79.899 OTHER SENIOR LIVING (CURRENT) DRUG THERAPY 06/18/2017 KAVEH, BOBAN N Ot Z92.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 ANTINEOPLASTIC CHEMO 06/18/2017 KAVEH, BOBAN N Ot 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 06/18/2017 AUTUMN LINN N Ot 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 06/18/2017 AUTUMN LINN N Ot M46.40 DISCITIS, UNSPECIFIED, SITE UNSPECIFIED 06/18/2017 AUTUMN LINN N Ot N18.3 CHRONIC KIDNEY DISEASE, STAGE 3 (MODERAT 06/18/2017 AUTUMN LINN N Ot Z79.899 OTHER SENIOR LIVING (CURRENT) DRUG THERAPY 06/18/2017 AUTUMN LINN N Ot Z92.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 ANTINEOPLASTIC CHEMO 08/06/2017 AUTUMN LINN N Ot 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 08/06/2017 AUTUMN LINN N Ot 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 08/06/2017 AUTUMN LINN N Ot M46.40 DISCITIS, UNSPECIFIED, SITE UNSPECIFIED 08/06/2017 AUTUMN LINN N Ot N18.3 CHRONIC KIDNEY DISEASE, STAGE 3 (MODERAT 08/06/2017 AUTUMN LINN N Ot Z79.899 OTHER SAIL REPAIR PERSON (CURRENT) DRUG THERAPY 08/06/2017 AUTUMN LINN N Ot Z92.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 ANTINEOPLASTIC CHEMO 09/15/2017 AUTUMN LINN N Ot 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 Results Test Result Range Lipid 1996 panel - 04/17/16 09:50 Serum or plasma triglyceride measurement (mass/volume) 91 mg/dL <150 Serum or plasma cholesterol measurement (mass/volume) 178 mg/dL < 200 Serum or plasma cholesterol in HDL measurement (mass/volume) 59 mg/ dL 40-60 Cholesterol in LDL [mass/volume] in serum or plasma by direct assay 98 mg/dL 1-129 Serum or plasma cholesterol in VLDL measurement (mass/volume) 18 mg/ dL 5-40 Hemoglobin A1c - 04/17/16 09:50 Hemoglobin A1c 5.7 % 4.5-6.2 Encounters ACCT No. Visit Date/Time Discharge Status Pt. Type Provider Facility Loc./Unit Complaint [id number] 10/21/2017 12:55:00 10/21/2017 23:59:59 CLS Outpatient AUTUMN LINN Bishop [facility] [id number] 09/02/2017 11:07:00 09/15/2017 00:01:00 DIS Outpatient KAVEH, AUTUMN Bishop [facility] [id number] 06/10/2017 10:55:00 06/12/2017 00:01:00 DIS Outpatient KAVEH, AUTUMN Bishop [facility] [id number] 02/04/2017 12:51:00 02/21/2017 00:01:00 DIS Outpatient AUTUMN LINN Bishop [facility] [id number] 10/05/2016 11:52:00 10/13/2016 00:01:00 DIS Outpatient AUTUMN LINN Bishop [facility] [id number] 05/29/2016 12:10:00 06/22/2016 10:21:00 DIS Outpatient AUTUMN LINN Bishop [facility] [id number] 04/23/2016 12:59:00 04/23/2016 23:59:59 CLS Outpatient DHARMESH ALVARADO [facility] [id number] 04/17/2016 09:32:00 04/17/2016 23:59:59 CLS Outpatient YO GALLARDO MD [facility] [id number] 03/05/2016 10:38:00 03/10/2016 00:01:00 DIS Outpatient AUTUMN LINN [facility] [id number] 10/24/2015 13:37:00 10/30/2015 00:01:00 DIS Outpatient KAVEH AUTUMN N [facility] [id number] 10/25/2015 09:43:00 10/25/2015 23:59:59 CLS Outpatient JOJO INIGUEZ [facility] [id number] 10/24/2015 13:40:00 10/24/2015 23:59:59 CLS Outpatient DHARMESH ALVARADO [facility] ON[facility] [id number] 09/12/2015 00:15:00 09/12/2015 23:59:59 CLS Preadmit YO GALLARDO MD [facility] [id number] 06/26/2015 09:59:00 09/11/2015 00:01:00 DIS Outpatient YO GALLARDO MD [facility] [id number] 07/10/2015 13:16:00 07/10/2015 23:59:59 CLS Outpatient ZO HOUSTON DO [facility] RT [id number] 07/01/2015 10:39:00 07/01/2015 23:59:59 CLS Outpatient DHARMESH ALVARADO [facility] ON[facility] [id number] 06/24/2015 13:19:00 06/24/2015 23:59:59 CLS Outpatient JESSICA ARREDONDO MD [facility] RAD [id number] 06/15/2015 16:03:00 06/17/2015 14:30:00 DIS Inpatient YO GALLARDO MD [facility] [address] [id number] 06/12/2015 10:05:00 06/12/2015 00:01:00 DIS Outpatient YO GALLARDO MD [facility] [id number] 06/03/2015 10:38:00 06/12/2015 00:01:00 DIS Outpatient KAVEH MANASEZE Bishop [facility] [id number] 05/10/2015 11:00:00 05/14/2015 14:52:00 DIS Inpatient YO GALLARDO MD [facility] [address] [id number] 04/27/2015 12:58:00 04/27/2015 15:53:00 DIS Emergency MECHELLE GREER ELECTRIC STOVE INSTALLER [facility] ER [id number] 04/16/2015 10:47:00 04/16/2015 23:59:59 CLS Outpatient DHARMESH ALVARADO BOTTOM IRONER [facility] ONC [id number] 03/26/2015 08:45:00 03/31/2015 00:01:00 DIS Outpatient AUTUMN LINN [facility] ONC [id number] 02/21/2015 10:34:00 02/21/2015 23:59:59 CLS Outpatient YO GALLARDO MD [facility] LAB [id number] 02/12/2015 09:46:00 02/12/2015 23:59:59 CLS Outpatient DHARMESH ALVARADOP [facility] ONC [id number] 02/07/2015 06:00:00 02/07/2015 13:05:00 DIS Outpatient MIQUEL STRATTON MD [facility] SDC [id number] 02/06/2015 13:19:00 02/06/2015 23:59:59 CLS Outpatient MIQUEL STRATTON MD [facility] PREOP [id number] 01/07/2015 07:20:00 01/07/2015 23:59:59 CLS Outpatient GARDENIA KESSLER DO [facility] RAD [id number] 10/08/2014 12:52:00 10/08/2014 23:59:59 CLS Outpatient AUTUMN LINN [facility] ONC [id number] 07/16/2014 11:11:00 07/18/2014 00:01:00 DIS Outpatient [id number] 07/16/2014 11:13:00 07/16/2014 23:59:59 CLS Outpatient YARY PINZON FACCMICHEL FACP CCDS [facility] LAB [id number] 06/14/2014 13:55:00 06/14/2014 23:59:59 CLS Outpatient [id number] 03/08/2014 11:16:00 03/13/2014 00:01:00 DIS Outpatient [id number] 01/25/2014 09:57:00 01/25/2014 23:59:59 CLS Outpatient [id number] 12/13/2013 10:51:00 12/13/2013 23:59:59 CLS Outpatient [id number] 11/01/2013 13:29:00 11/06/2013 00:01:00 DIS Outpatient [id number] 09/27/2013 10:06:00 09/27/2013 23:59:59 CLS Outpatient [id number] 09/27/2013 10:01:00 09/27/2013 23:59:59 CLS Outpatient [id number] 06/27/2013 09:44:00 07/19/2013 00:01:00 DIS Outpatient [id number] 06/29/2013 14:19:00 06/29/2013 23:59:59 CLS Outpatient [id number] 06/27/2013 09:58:00 06/27/2013 23:59:59 CLS Outpatient [id number] 04/04/2013 22:27:00 04/05/2013 00:49:00 DIS Emergency MECHELLE GREER APRN [facility] [id number] 03/13/2013 08:39:00 03/15/2013 00:01:00 DIS Outpatient [id number] 03/13/2013 08:44:00 03/13/2013 23:59:59 CLS Outpatient [id number] 03/13/2013 08:42:00 03/13/2013 23:59:59 CLS Outpatient [id number] 03/08/2013 20:55:00 03/09/2013 00:25:00 DIS Emergency [id number] 01/15/2013 13:05:00 01/15/2013 15:22:00 DIS Emergency [id number] 01/07/2015 07:36:00 Document Registration [id number] 07/03/2008 13:45:00 Document Registration
[2017-11-03] MEDS ORDERED: NS IV 500 ML 500 ML IV PRN (09:54)
[2017-11-03] MEDS ORDERED: LIDOCAINE JELLY 2% (XYLOCAINE) 5 ML TUBE MM PRN (10:00)
[2017-11-03] MEDS ORDERED: HURRICAINE EXT TUBE (BENZOCAINE) XX PRN (10:00)
[2017-11-03 10:10] VITALS: BP 170/76
--- NOTE | 2017-11-03 11:03 | Conscious Sedation/ASA ---
Conscious Sedation Pre-Proced Time Reviewed: 10:30 ASA Class: 3 Airway Mallampati Classification: ([place] appropriate class) I. II. III, IV Lungs Heart ASA score ASA 1: a normal healthy patient ASA 2: a patient with a mild systemic disease (mid diabetes, controlled hypertension, obesity ASA 3: a patient with a severe systemic disease that limits activity (angina , COPD, prior Myocardial infarction) ASA 4: a patient with an incapacitating disease that is a constant threat to life (CHF, renal failure) ASA 5: a moribund patient not expected to survive 24 hrs. (ruptured aneurysm) ASA 6: a declared brain patient whose organs are being harvested. For emergent operations, add the letter E after the classification Grade 2 Sedation Plan: Analgesia, Amnesia, Plan communicated to team members, Discussed options with patient/fam, Discussed risks with patient/fam Note The patient is an appropriate candidate to undergo the planned procedure, sedation, and anesthesia. The patient immediately re-assessed prior to indication. MIQUEL STRATTON MD Nov 03, 2017 11:03 am
--- NOTE | 2017-11-03 11:03 | Progress Note-Pre Operative ---
Pre-Operative Progress Note H&P Reviewed The H&P was reviewed, patient examined and no changes noted. Date Seen by Provider: Nov 03, 2017 Time Seen by Provider: 10:30 Date H&P Reviewed: Nov 03, 2017 Time H&P Reviewed: :30 Pre-Operative Diagnosis: anemia, GERD, hx metastatic ovarian ca MIQUEL STRATTON MD Nov 03, 2017 11:03 am
[2017-11-03] MEDS ORDERED: MIDAZOLAM 2 MG/2 ML (VERSED) VIAL ONE ×5 (11:06→11:07)
[2017-11-03] MEDS ORDERED: fentaNYL INJECTION 100 MCG/2 ML AMP ONE ×2 (11:06)
[2017-11-03] MEDS ORDERED: LIDOCAINE JELLY 2% (XYLOCAINE) 5 ML TUBE ONE (11:06)
[2017-11-03] MEDS ORDERED: HURRICAINE EXT TUBE (BENZOCAINE) ONE (11:07)
[2017-11-03] MEDS: fentaNYL INJECTION 100 MCG/2 ML AMP IVP PRN ×4 (11:14→11:45)
[2017-11-03] MEDS ORDERED: ONDANSETRON 4 MG/2 ML (SDV) Z0FRAN IV PRN (11:15)
[2017-11-03] MEDS ORDERED: ACETAMINOPHEN 325 MG TABLET/CAPLET (TYLENOL) PO PRN (11:15)
[2017-11-03] MEDS ORDERED: HYDROcodone/APAP 5 MG/325 MG (LORTAB) TAB PO PRN (11:15)
[2017-11-03] MEDS ORDERED: morphine INJ 10 MG/ML 1ML (SYR OR VIAL) IV PRN (11:15)
[2017-11-03] MEDS: MIDAZOLAM 2 MG/2 ML (VERSED) VIAL IVP PRN ×3 (11:15→11:33)
[2017-11-03 12:10] VITALS: BP 145/58
[2017-11-03 12:37] VITALS: BP 158/77
[2017-11-03 12:38] VITALS: BP 158/77
--- NOTE | 2017-11-03 14:10 | Progress Note-Post Operative ---
Post-Operative Progess Note Surgeon (s)/Crm Analyst (s) Surgeon MIQUEL STRATTON MD Crm Analyst: none Pre-Operative Diagnosis anemia, GERD, hx metastatic ovarian ca Post-Operative Diagnosis reflux esophagitis(class B), mild gastritis. chronic stage 2 ext and int hemorrhoids, moderate-severe sigmoid and descending diverticulosis, no active bleeding. Procedure & Operative Findings Date of Procedure 11/03/17 Procedure Performed/Findings EGD with bx. Colonoscopy. Anesthesia Type CS Estimated Blood Loss Estimated blood loss (mL): minimal Specimens/Packing Specimens Removed none MIQUEL STRATTON MD Nov 03, 2017 2:10 pm
--- NOTE | 2017-11-03 16:50 | OPERATIVE REPORT ---
DATE OF SERVICE: 11/03/2017 ATTENDING PRIMARY CARE PHYSICIAN: Dr. Gonzalez. PREOPERATIVE DIAGNOSES: Anemia, gastroesophageal reflux disease, history of metastatic ovarian cancer. POSTOPERATIVE DIAGNOSES: Chronic stage II external and internal hemorrhoids, sdngmlqk-wn-wrhjow sigmoid diverticulosis. The remainder of the colon and rectum were normal. No active bleeding identified. PROCEDURES: EGD with biopsy, colonoscopy. SURGEON: Miquel Stratton MD ANESTHESIA: Conscious sedation. ESTIMATED BLOOD LOSS: Minimal. FINDINGS: EGD, reflux esophagitis class B, mild gastritis. Colonoscopy, chronic stage II external and internal hemorrhoids, lhvujdnr-xm-qtegdd sigmoid diverticulosis with no active bleeding identified. The remainder of the colon was normal and no active bleeding identified. DISPOSITION: The patient tolerated the procedure well. INDICATIONS FOR PROCEDURE: The patient is an 86-year-old female who was seen by us in 01/2015 for a palpable lesion in the supraumbilical region. She has a history of stage III ovarian cancer and was status post exploratory laparotomy, bilateral salpingo-oophorectomy, sigmoid colon resection, segmental small bowel resection and omentectomy due to the ovarian cancer in 2007. She also underwent chemotherapy with Taxol and carboplatin for 6 cycles. She underwent exploration of the abdominal mass, which was excised en bloc along with the lining of the omentum in 01/2015. This was found to be a poorly differentiated carcinoma consistent with an ovarian primary. Since that time, she has been on carboplatin and paclitaxel. She was seen by her primary care physician recently and found to have a hemoglobin of 7.3. Upon further questioning, she does report that she does have gastroesophageal reflux disease as well as increased belching and was recently started on omeprazole. She also does report a history of constipation; however, does not report any red blood per rectum nor any dark tarry stools. DESCRIPTION OF PROCEDURE: The patient was brought to the endoscopy suite, laid in the left lateral decubitus position. After adequate IV pain and sedative medications and conscious sedation anesthesia, the mouthpiece was applied. The endoscope was placed in the mouth visualizing the pharynx and hypopharyngeal region. Vocal cords, epiglottis and vallecula identified and appeared to be normal. The endoscope was then advanced to the first, second and third portions of the esophagus. At the level of the GE junction, a reflux esophagitis class B was identified. There were no ulcers or strictures identified in this region. A biopsy was taken with forceps with visualization of good hemostasis. The endoscope was then advanced in the stomach and then endoscope retroflexed visualizing no significant hiatal hernia. There was a mild gastritis noted. There were no ulcers, polyps or any neoplasms identified as well as no active bleeding sources. A biopsy was taken of the stomach antrum with forceps with visualization of good hemostasis. The endoscope was then advanced to the pylorus and the first and second portions of the duodenum, which appeared normal. The endoscope was then advanced to the pylorus and the first and second portions of the duodenum, which appeared normal with no ulcerations or any bleeding identified. The endoscope was slowly withdrawn while taking a second look and suctioning of residual air with no additional findings. The patient tolerated this portion of the procedure well. We will have her continue with medical management with avoidance of caffeinated beverages, spicy, greasy and acidic foods as well as small more frequent meals and avoidance of eating at night. We will also have her continue with omeprazole for now. Under the same conscious sedation anesthesia, we then proceeded with the colonoscopy portion of the procedure. A digital rectal examination was performed, which revealed mild chronic stage II external and internal hemorrhoids, not actively edematous nor inflamed and no bleeding. Normal sphincter tone was felt and there were no palpable masses. The endoscope was then intubated to the anus and rectum and gently insufflated. The endoscope was then advanced through the valves of Paez in the rectum with no polyps or any neoplasms identified. Through the sigmoid colon as well as the descending colon, there was rzebogqd-zv-bhotki diverticulosis identified. There were no mucosal inflammatory changes to indicate any active diverticulitis. There was also no active bleeding identified. The endoscope was then advanced to the remainder of the transverse and ascending colon to the cecum. These segments were normal. There were no active bleeding sources as well as no signs of any metastatic disease. The endoscope was then slowly withdrawn while taking a second look and suctioning of residual air with no additional findings. The patient tolerated the procedure well. We will recommend continued medical management with a high fiber diet with at least 25 grams of fiber per day as well as at least 64 fluid ounces of water daily to promote soft stools on a daily basis. Job ID: [id number] DocumentID: [id number] Dictated Date: 11/03/2017 12:07:10 Property Custodian Date: 11/03/2017 16:49:24 Dictated By: MIQUEL STRATTON MD
== END 2017-11-03 12:58 | disposition home or self-care (01) ==
LOC: ENDO 09:44
PROVIDERS: ATTEND Surgery
DX: K21.0 Gastro-esophageal reflux disease with esophagitis (principal); K57.30 Diverticulosis of large intestine without perforation or abscess without bleeding; K64.1 Second degree hemorrhoids; K29.70 Gastritis, unspecified, without bleeding; Z85.43 Personal history of malignant neoplasm of ovary; Z92.21 Personal history of antineoplastic chemotherapy; E11.9 Type 2 diabetes mellitus without complications; E78.00 Pure hypercholesterolemia, unspecified; I10 Essential (primary) hypertension; M16.0 Bilateral primary osteoarthritis of hip; Z88.8 Allergy status to other drugs, medicaments and biological substances; Z88.5 Allergy status to narcotic agent; Z79.899 Other long term (current) drug therapy

== ENCOUNTER → 2017-11-16 | Outpatient (CLI) | payer MEDICARE, OTHER ==
[~2017-11-16] VITALS: Ht 167.6 cm; Wt 74.8 kg
[~2017-11-16] MED LIST changes: +CATHETER FLUSH 10 ML SYR IV PRN; +REGADENOSON 0.4 MG/5 ML SYR (LEXISCAN) IV ONE
[2017-11-16 09:32] VITALS: BP 138/80
--- NOTE | 2017-11-16 19:03 | STRESS TEST ---
DATE OF SERVICE: 11/16/2017 RESTING AND POST REGADENOSON TECHNETIUM-99M TETROFOSMIN SPECT CT IMAGING ORDERING PHYSICIAN: Padmini Rasheed APRN PRIMARY PHYSICIAN: Dr. Gonzalez. OTHER PHYSICIAN: Dr. Pringle. CLINICAL DIAGNOSES: Coronary artery disease. Baseline images were carried out after injection of 10.53 mCi technetium-99m Tetrofosmin. This was followed by 0.4 mg regadenoson and 29.3 mCi of technetium-99m Tetrofosmin for stress imaging. The electrocardiogram shows sinus rhythm at baseline and did not change significantly with the regadenoson infusion. She had some shortness of breath following regadenoson infusion, which resolved in a few minutes. Overall, she tolerated the procedure well. Review of images at rest and following stress does not indicate any significant perfusion defects consistent with myocardial ischemia or infarction. Gated images show normal global left ventricular systolic function with normal regional wall motion. Left ventricular end diastolic volume is 31 mL. TID is absent (0.95). CONCLUSIONS: 1. No evidence of significant myocardial ischemia or infarction on this study. 2. Normal regional wall motion. 3. Normal global left ventricular systolic function with a calculated ejection fraction of 75%. Job ID: [id number] DocumentID: [id number] Dictated Date: 11/16/2017 16:07:06 Basting Machine Operator Date: 11/16/2017 19:02:32 Dictated By: MICHEL PRINGLE MD, MA, FACP, FACC,
== END ==
LOC: CARD 07:06
PROVIDERS: ATTEND Nurse Practitioner Family
DX: I25.10 Atherosclerotic heart disease of native coronary artery without angina pectoris (principal); R06.02 Shortness of breath; I12.9 Hypertensive chronic kidney disease with stage 1 through stage 4 chronic kidney disease, or unspecified chronic kidney disease; I65.29 Occlusion and stenosis of unspecified carotid artery; N18.3 Chronic kidney disease, stage 3 (moderate)
CPT/HCPCS: 78452; 93017

== ENCOUNTER → 2017-11-17 | Outpatient (CLI) | payer MEDICARE, OTHER ==
[~2017-11-17] MED LIST changes: -CATHETER FLUSH 10 ML SYR IV PRN; -REGADENOSON 0.4 MG/5 ML SYR (LEXISCAN) IV ONE
== END ==
LOC: CARD 12:25
PROVIDERS: ATTEND Nurse Practitioner Family
DX: I25.10 Atherosclerotic heart disease of native coronary artery without angina pectoris (principal); R06.02 Shortness of breath; I12.9 Hypertensive chronic kidney disease with stage 1 through stage 4 chronic kidney disease, or unspecified chronic kidney disease; I65.29 Occlusion and stenosis of unspecified carotid artery; N18.3 Chronic kidney disease, stage 3 (moderate); I34.0 Nonrheumatic mitral (valve) insufficiency
CPT/HCPCS: 93306

== ENCOUNTER 2018-01-10 12:21 | Outpatient (RCR) | payer MEDICARE, OTHER ==
[2017-10-15 14:50] LABS: BASOPHILS % (AUTO) 0 % (0-10); EOSINOPHILS # (AUTO) 0.3 10^3/uL (0.0-0.3); EOSINOPHILS % (AUTO) 3 % (0-10); HEMATOCRIT 25 % (35-52); HEMOGLOBIN 7.3 G/DL (11.5-16.0); LYMPHOCYTES # (AUTO) 1.5 X 10^3 (1.0-4.0); LYMPHOCYTES % (AUTO) 16 % (12-44); MEAN CORPUSCULAR HEMOGLOBIN 22 PG (25-34); MEAN CORPUSCULAR HGB CONC 30 G/DL (32-36); MEAN CORPUSCULAR VOLUME 74 FL (80-99); MEAN PLATELET VOLUME 9.1 FL (7.4-10.4); MONOCYTES # (AUTO) 0.8 X 10^3 (0.0-1.0); MONOCYTES % (AUTO) 9 % (0-12); NEUTROPHILS # (AUTO) 6.7 X 10^3 (1.8-7.8); NEUTROPHILS % (AUTO) 72 % (42-75); PLATELET COUNT 382 10^3/uL (130-400); RED BLOOD COUNT 3.31 10^6/uL (4.35-5.85); RED CELL DISTRIBUTION WIDTH 15.1 % (10.0-14.5); WHITE BLOOD COUNT 9.4 10^3/uL (4.3-11.0)
[2017-10-15 15:07] LABS: CREATININE SERUM 0.94 MG/DL (0.60-1.30); POTASSIUM 4.1 MMOL/L (3.6-5.0)
[2017-10-15 15:08] LABS: ALBUMIN 3.6 GM/DL (3.2-4.5); BILIRUBIN,TOTAL 0.2 MG/DL (0.1-1.0); CALCIUM 9.3 MG/DL (8.5-10.1); TOTAL PROTEIN 6.8 GM/DL (6.4-8.2)
[2017-10-28 14:18] LABS: BASOPHILS % (AUTO) 0 % (0-10); EOSINOPHILS # (AUTO) 0.2 10^3/uL (0.0-0.3); EOSINOPHILS % (AUTO) 2 % (0-10); HEMATOCRIT 28 % (35-52); HEMOGLOBIN 8.4 G/DL (11.5-16.0); LYMPHOCYTES % (AUTO) 12 % (12-44); MEAN CORPUSCULAR HEMOGLOBIN 23 PG (25-34); MEAN CORPUSCULAR HGB CONC 30 G/DL (32-36); MEAN CORPUSCULAR VOLUME 78 FL (80-99); MEAN PLATELET VOLUME 9.2 FL (7.4-10.4); MONOCYTES # (AUTO) 0.8 X 10^3 (0.0-1.0); MONOCYTES % (AUTO) 9 % (0-12); NEUTROPHILS # (AUTO) 6.4 X 10^3 (1.8-7.8); NEUTROPHILS % (AUTO) 76 % (42-75); PLATELET COUNT 368 10^3/uL (130-400); RED CELL DISTRIBUTION WIDTH 21.1 % (10.0-14.5); WHITE BLOOD COUNT 8.4 10^3/uL (4.3-11.0)
[2017-10-28 14:40] LABS: CALCIUM 8.3 MG/DL (8.5-10.1); CREATININE SERUM 1.15 MG/DL (0.60-1.30); MAGNESIUM 2.2 MG/DL (1.8-2.4); POTASSIUM 3.9 MMOL/L (3.6-5.0)
[2017-11-09 13:40] LABS: BASOPHILS % (AUTO) 0 % (0-10); EOSINOPHILS # (AUTO) 0.4 10^3/uL (0.0-0.3); EOSINOPHILS % (AUTO) 7 % (0-10); HEMATOCRIT 30 % (35-52); HEMOGLOBIN 9.4 G/DL (11.5-16.0); LYMPHOCYTES # (AUTO) 0.9 X 10^3 (1.0-4.0); LYMPHOCYTES % (AUTO) 15 % (12-44); MEAN CORPUSCULAR HEMOGLOBIN 25 PG (25-34); MEAN CORPUSCULAR HGB CONC 31 G/DL (32-36); MEAN CORPUSCULAR VOLUME 80 FL (80-99); MEAN PLATELET VOLUME 8.6 FL (7.4-10.4); MONOCYTES # (AUTO) 0.7 X 10^3 (0.0-1.0); MONOCYTES % (AUTO) 12 % (0-12); NEUTROPHILS # (AUTO) 4.1 X 10^3 (1.8-7.8); NEUTROPHILS % (AUTO) 66 % (42-75); PLATELET COUNT 345 10^3/uL (130-400); RED BLOOD COUNT 3.82 10^6/uL (4.35-5.85); RED CELL DISTRIBUTION WIDTH 24.6 % (10.0-14.5); WHITE BLOOD COUNT 6.1 10^3/uL (4.3-11.0)
[2017-11-29 11:21] LABS: BASOPHILS % (AUTO) 0 % (0-10); EOSINOPHILS # (AUTO) 0.4 10^3/uL (0.0-0.3); EOSINOPHILS % (AUTO) 6 % (0-10); HEMATOCRIT 36 % (35-52); HEMOGLOBIN 11.4 G/DL (11.5-16.0); LYMPHOCYTES # (AUTO) 1.2 X 10^3 (1.0-4.0); LYMPHOCYTES % (AUTO) 18 % (12-44); MEAN CORPUSCULAR HEMOGLOBIN 26 PG (25-34); MEAN CORPUSCULAR HGB CONC 32 G/DL (32-36); MEAN CORPUSCULAR VOLUME 80 FL (80-99); MEAN PLATELET VOLUME 8.8 FL (7.4-10.4); MONOCYTES # (AUTO) 0.8 X 10^3 (0.0-1.0); MONOCYTES % (AUTO) 11 % (0-12); NEUTROPHILS # (AUTO) 4.5 X 10^3 (1.8-7.8); NEUTROPHILS % (AUTO) 65 % (42-75); PLATELET COUNT 383 10^3/uL (130-400); RED BLOOD COUNT 4.46 10^6/uL (4.35-5.85); RED CELL DISTRIBUTION WIDTH 23.2 % (10.0-14.5); WHITE BLOOD COUNT 6.9 10^3/uL (4.3-11.0)
[2017-11-29 11:47] LABS: ALBUMIN 3.9 GM/DL (3.2-4.5); BILIRUBIN,TOTAL 0.3 MG/DL (0.1-1.0); CALCIUM 9.7 MG/DL (8.5-10.1); CREATININE SERUM 0.98 MG/DL (0.60-1.30); POTASSIUM 4.3 MMOL/L (3.6-5.0); TOTAL PROTEIN 7.4 GM/DL (6.4-8.2)
[~2018-01-10 12:21] MED LIST changes: +FERRIC CARBOXYMALTOSE (CANCER) 750 MG in NS (IVPB) CANCER CENTER 250 ML IV SCH; +IRON SUCROSE 100 MG/5 ML (VENOFER) VIAL CANCER CTR IV SCH; -METF500T4 PO; +METF500T5 PO
[2018-01-10 12:48] LABS: BASOPHILS % (AUTO) 0 % (0-10); EOSINOPHILS # (AUTO) 0.2 10^3/uL (0.0-0.3); EOSINOPHILS % (AUTO) 3 % (0-10); HEMATOCRIT 37 % (35-52); HEMOGLOBIN 12.1 G/DL (11.5-16.0); LYMPHOCYTES # (AUTO) 1.5 X 10^3 (1.0-4.0); LYMPHOCYTES % (AUTO) 23 % (12-44); MEAN CORPUSCULAR HEMOGLOBIN 27 PG (25-34); MEAN CORPUSCULAR HGB CONC 33 G/DL (32-36); MEAN CORPUSCULAR VOLUME 82 FL (80-99); MEAN PLATELET VOLUME 9.1 FL (7.4-10.4); MONOCYTES # (AUTO) 0.7 X 10^3 (0.0-1.0); MONOCYTES % (AUTO) 10 % (0-12); NEUTROPHILS # (AUTO) 4.1 X 10^3 (1.8-7.8); NEUTROPHILS % (AUTO) 63 % (42-75); PLATELET COUNT 279 10^3/uL (130-400); RED BLOOD COUNT 4.54 10^6/uL (4.35-5.85); RED CELL DISTRIBUTION WIDTH 18.7 % (10.0-14.5); WHITE BLOOD COUNT 6.5 10^3/uL (4.3-11.0)
== END 2018-01-13 | disposition home or self-care (01) ==
LOC: ONC 12:21
PROVIDERS: ATTEND Internal Medicine Hematology & Oncology
DX: C56.2 Malignant neoplasm of left ovary (principal); C79.2 Secondary malignant neoplasm of skin; D50.9 Iron deficiency anemia, unspecified; I12.9 Hypertensive chronic kidney disease with stage 1 through stage 4 chronic kidney disease, or unspecified chronic kidney disease; E11.22 Type 2 diabetes mellitus with diabetic chronic kidney disease; N18.3 Chronic kidney disease, stage 3 (moderate); I25.10 Atherosclerotic heart disease of native coronary artery without angina pectoris; E78.00 Pure hypercholesterolemia, unspecified; I73.9 Peripheral vascular disease, unspecified; Z79.82 Long term (current) use of aspirin; Z79.899 Other long term (current) drug therapy; Z92.21 Personal history of antineoplastic chemotherapy
CPT/HCPCS: 36415; 36591; 80048; 80053; 82728; 83540; 83735; 85025; 86304; 96365; 96374; 99213

== ENCOUNTER 2018-05-18 15:44 | Outpatient (RCR) | payer MEDICARE, OTHER ==
[2018-02-21 11:42] LABS: BASOPHILS % (AUTO) 0 % (0-10); EOSINOPHILS # (AUTO) 0.2 10^3/uL (0.0-0.3); EOSINOPHILS % (AUTO) 2 % (0-10); HEMATOCRIT 33 % (35-52); HEMOGLOBIN 10.8 G/DL (11.5-16.0); LYMPHOCYTES # (AUTO) 1.3 X 10^3 (1.0-4.0); LYMPHOCYTES % (AUTO) 17 % (12-44); MEAN CORPUSCULAR HEMOGLOBIN 27 PG (25-34); MEAN CORPUSCULAR HGB CONC 33 G/DL (32-36); MEAN CORPUSCULAR VOLUME 83 FL (80-99); MONOCYTES % (AUTO) 13 % (0-12); NEUTROPHILS # (AUTO) 5.3 X 10^3 (1.8-7.8); NEUTROPHILS % (AUTO) 68 % (42-75); PLATELET COUNT 277 10^3/uL (130-400); RED BLOOD COUNT 3.98 10^6/uL (4.35-5.85); RED CELL DISTRIBUTION WIDTH 14.6 % (10.0-14.5); WHITE BLOOD COUNT 7.8 10^3/uL (4.3-11.0)
[2018-02-21 12:12] LABS: ALBUMIN 3.6 GM/DL (3.2-4.5); BILIRUBIN,TOTAL 0.3 MG/DL (0.1-1.0); CREATININE SERUM 1.09 MG/DL (0.60-1.30); POTASSIUM 4.1 MMOL/L (3.6-5.0); TOTAL PROTEIN 6.8 GM/DL (6.4-8.2)
[~2018-05-18 15:44] MED LIST changes: -FERRIC CARBOXYMALTOSE (CANCER) 750 MG in NS (IVPB) CANCER CENTER 250 ML IV SCH; -IRON SUCROSE 100 MG/5 ML (VENOFER) VIAL CANCER CTR IV SCH; +METF-397 PO; -METF500T5 PO
[2018-05-18 16:00] LABS: BASOPHILS % (AUTO) 0 % (0-10); EOSINOPHILS # (AUTO) 0.2 10^3/uL (0.0-0.3); EOSINOPHILS % (AUTO) 2 % (0-10); HEMATOCRIT 30 % (35-52); HEMOGLOBIN 9.7 G/DL (11.5-16.0); LYMPHOCYTES # (AUTO) 1.6 X 10^3 (1.0-4.0); LYMPHOCYTES % (AUTO) 18 % (12-44); MEAN CORPUSCULAR HEMOGLOBIN 26 PG (25-34); MEAN CORPUSCULAR HGB CONC 32 G/DL (32-36); MEAN CORPUSCULAR VOLUME 82 FL (80-99); MEAN PLATELET VOLUME 8.3 FL (7.4-10.4); MONOCYTES % (AUTO) 12 % (0-12); NEUTROPHILS # (AUTO) 6.2 X 10^3 (1.8-7.8); NEUTROPHILS % (AUTO) 69 % (42-75); PLATELET COUNT 405 10^3/uL (130-400); RED BLOOD COUNT 3.68 10^6/uL (4.35-5.85); RED CELL DISTRIBUTION WIDTH 13.5 % (10.0-14.5)
[2018-05-18 16:28] LABS: ALBUMIN 3.9 GM/DL (3.2-4.5); BILIRUBIN,TOTAL 0.3 MG/DL (0.1-1.0); CALCIUM 9.9 MG/DL (8.5-10.1); CREATININE SERUM 0.95 MG/DL (0.60-1.30); POTASSIUM 4.3 MMOL/L (3.6-5.0)
== END 2018-05-22 | disposition home or self-care (01) ==
LOC: ONC 15:44
PROVIDERS: ATTEND Internal Medicine Hematology & Oncology
DX: C56.2 Malignant neoplasm of left ovary (principal); C79.2 Secondary malignant neoplasm of skin; D50.9 Iron deficiency anemia, unspecified; N18.3 Chronic kidney disease, stage 3 (moderate); Z79.899 Other long term (current) drug therapy; Z92.21 Personal history of antineoplastic chemotherapy
CPT/HCPCS: 36591; 80053; 82728; 85025; 86304; 96523; 99213

== ENCOUNTER 2018-06-03 14:15 | Outpatient (RCR) | payer MEDICARE, OTHER ==
[~2018-06-03 14:15] MED LIST changes: -CATHETER FLUSH 10 ML SYR IV PRN; -HEParin (CENTRAL IV FLUSH) 500 UNIT/5 ML SYR ONE; +IRON SUCROSE 100 MG/5 ML (VENOFER) VIAL CANCER CTR IV SCH
== END 2018-06-12 | disposition home or self-care (01) ==
LOC: ONC 14:15
PROVIDERS: ATTEND Internal Medicine Hematology & Oncology
DX: D50.9 Iron deficiency anemia, unspecified (principal); C56.2 Malignant neoplasm of left ovary; C79.2 Secondary malignant neoplasm of skin; N18.3 Chronic kidney disease, stage 3 (moderate); Z79.899 Other long term (current) drug therapy; Z92.21 Personal history of antineoplastic chemotherapy
CPT/HCPCS: 96365; 96374

== ENCOUNTER → 2018-06-03 | Outpatient (CLI) | payer MEDICARE, OTHER ==
[~2018-06-03] MED LIST changes: +CATHETER FLUSH 10 ML SYR IV PRN; +HEParin (CENTRAL IV FLUSH) 500 UNIT/5 ML SYR ONE
--- NOTE | 2018-06-03 17:28 | Diagnostic Imaging Report ---
INDICATION: GI bleeding, ovarian carcinoma, anemia. EXAMINATION: GI bleeding study. This study was performed following administration of 29.3 mCi of tagged red blood cells. Sequential images of the abdomen were obtained over a one hour period. COMPARISON: There are no prior studies available for comparison. FINDINGS: There is no abnormal accumulation of the radiotracer to suggest active bleeding from the gastrointestinal tract. There does appear to be accumulation of the radiotracer within the bladder. IMPRESSION: There is no evidence for active bleeding from the gastrointestinal tract. Dictated by: Dictated on workstation # [id number]
== END ==
LOC: CARD 11:58
PROVIDERS: ATTEND Surgery
DX: D64.9 Anemia, unspecified (principal); Z85.43 Personal history of malignant neoplasm of ovary
CPT/HCPCS: 78278

== ENCOUNTER 2018-08-29 09:58 | Outpatient (RCR) | payer MEDICARE, OTHER ==
[2018-07-18 12:27] LABS: BASOPHILS % (AUTO) 0 % (0-10); EOSINOPHILS # (AUTO) 0.2 10^3/uL (0.0-0.3); EOSINOPHILS % (AUTO) 2 % (0-10); HEMATOCRIT 34 % (35-52); HEMOGLOBIN 10.8 G/DL (11.5-16.0); LYMPHOCYTES # (AUTO) 1.4 X 10^3 (1.0-4.0); LYMPHOCYTES % (AUTO) 16 % (12-44); MEAN CORPUSCULAR HEMOGLOBIN 27 PG (25-34); MEAN CORPUSCULAR HGB CONC 32 G/DL (32-36); MEAN CORPUSCULAR VOLUME 85 FL (80-99); MEAN PLATELET VOLUME 8.5 FL (7.4-10.4); MONOCYTES # (AUTO) 0.8 X 10^3 (0.0-1.0); MONOCYTES % (AUTO) 8 % (0-12); NEUTROPHILS # (AUTO) 6.5 X 10^3 (1.8-7.8); NEUTROPHILS % (AUTO) 73 % (42-75); PLATELET COUNT 432 10^3/uL (130-400); RED CELL DISTRIBUTION WIDTH 18.9 % (10.0-14.5); WHITE BLOOD COUNT 8.9 10^3/uL (4.3-11.0)
[2018-08-19 12:30] LABS: BASOPHILS % (AUTO) 0 % (0-10); EOSINOPHILS # (AUTO) 0.3 10^3/uL (0.0-0.3); EOSINOPHILS % (AUTO) 4 % (0-10); HEMATOCRIT 36 % (35-52); HEMOGLOBIN 11.3 G/DL (11.5-16.0); LYMPHOCYTES # (AUTO) 1.4 X 10^3 (1.0-4.0); LYMPHOCYTES % (AUTO) 23 % (12-44); MEAN CORPUSCULAR HEMOGLOBIN 28 PG (25-34); MEAN CORPUSCULAR HGB CONC 32 G/DL (32-36); MEAN CORPUSCULAR VOLUME 88 FL (80-99); MEAN PLATELET VOLUME 9.1 FL (7.4-10.4); MONOCYTES # (AUTO) 0.6 X 10^3 (0.0-1.0); MONOCYTES % (AUTO) 10 % (0-12); NEUTROPHILS % (AUTO) 63 % (42-75); PLATELET COUNT 328 10^3/uL (130-400); RED CELL DISTRIBUTION WIDTH 17.7 % (10.0-14.5); WHITE BLOOD COUNT 6.3 10^3/uL (4.3-11.0)
[2018-08-19 12:42] LABS: ALBUMIN 3.6 GM/DL (3.2-4.5); BILIRUBIN,TOTAL 0.3 MG/DL (0.1-1.0); CALCIUM 9.7 MG/DL (8.5-10.1); CREATININE SERUM 1.01 MG/DL (0.60-1.30); POTASSIUM 4.2 MMOL/L (3.6-5.0); TOTAL PROTEIN 7.2 GM/DL (6.4-8.2)
[~2018-08-29 09:58] MED LIST changes: +ASPI-983 PO; +CEFD300C3 PO; +DIPH25CA6 PO; -IRON SUCROSE 100 MG/5 ML (VENOFER) VIAL CANCER CTR IV SCH; +OLME20TA24 PO; +OMEP40CA36 PO
== END 2018-10-16 | disposition home or self-care (01) ==
LOC: ONC 09:58
PROVIDERS: ATTEND Internal Medicine Hematology & Oncology
DX: D50.9 Iron deficiency anemia, unspecified (principal); C56.2 Malignant neoplasm of left ovary; C79.2 Secondary malignant neoplasm of skin; N18.3 Chronic kidney disease, stage 3 (moderate); Z79.899 Other long term (current) drug therapy; Z92.21 Personal history of antineoplastic chemotherapy
CPT/HCPCS: 36591; 80053; 82728; 85025; 86304

== ENCOUNTER 2018-10-17 13:22 | Outpatient (RCR) | payer MEDICARE, OTHER | END 2018-11-04 | disposition home or self-care (01) | LOC: CR3 13:22 | PROVIDERS: ATTEND Family Medicine | DX: Z29.8 Encounter for other specified prophylactic measures (principal) ==

== ENCOUNTER → 2018-12-01 | Outpatient (CLI) | payer MEDICARE, OTHER ==
[~2018-12-01] MED LIST changes: +HOLD METFORMIN - RECEIVED CONTRAST 20 ML VIAL IV SCH; +IOHEXOL 350 MG/ML 100 ML (OMNIPAQUE 350) VIAL IV ONE
--- NOTE | 2018-12-01 14:45 | Diagnostic Imaging Report ---
PROCEDURE: CT chest with contrast, CT abdomen and pelvis with and without contrast. TECHNIQUE: Pre and post intravenous contrast axial imaging of the abdomen and pelvis and post contrast axial imaging of the chest were performed. Auto Exposure Controls were utilized during the CT exam to meet ALARA standards for radiation dose reduction. INDICATION: Ovarian carcinoma. COMPARISON: Comparison is made with CT of the chest from 06/29/[address] of the abdomen and pelvis from 01/07/2015. CT CHEST: Small low densities in the right lobe of the thyroid are noted which appear similar to prior exam. There is a left chest wall port. No axillary lymphadenopathy is detected. No definite mediastinal or hilar lymphadenopathy is seen. No pericardial or pleural fluid is identified. Pulmonary parenchymal evaluation does show some minimal scarring in the right middle lobe. No infiltrates, nodules or masses are seen. IMPRESSION: Unremarkable CT of the chest. No thoracic lymphadenopathy or evidence of pulmonary metastatic disease is identified. CT ABDOMEN AND PELVIS: There is a tiny low-density in the dome of the right lobe of liver measuring 4 mm, too small to accurately characterize. Abnormal soft tissue has developed in the upper abdomen near the diaphragm and adjacent to the right lobe of the liver medial side. This abuts the right lobe of the liver on the right side of the lesion and the inferior vena cava on the left side of the lesion. This measures approximately 5.7 cm AP x 2.9 cm transverse x approximately 5.2 cm cephalocaudal. Gallbladder is unremarkable. No biliary duct dilatation is seen. The pancreas and spleen are unremarkable. No adrenal mass is identified. Kidneys are unremarkable. Aorta is heavily calcified but nonaneurysmal. Small and large bowel loops are normal in caliber. There is a bowel loop in the right lower abdomen upper pelvis which shows marked circumferential wall thickening, suspicious for a mass. This appears to be a distal small bowel loop, likely of ileum. Remaining small bowel loops are unremarkable. There is no ascites. No central, retroperitoneal or mesenteric lymphadenopathy is seen. No inguinal or iliac lymphadenopathy is seen. Bladder is unremarkable. There is diverticulosis of the sigmoid but no evidence of acute diverticulitis. IMPRESSION: Abnormal soft tissue has developed in the upper abdomen at the level of the diaphragm and along the serosal surface of the right lobe of the liver medial side. This was not present on CT study from 2014. This could represent a serosal implant from peritoneal carcinomatosis. No ascites is present however. In addition, there has been development of significant circumferential thickening involving a distal small bowel loop in the right abdomen, suspicious for a mass. The remainder of the study is unremarkable. Dictated by: Dictated on workstation # [id number]
== END ==
LOC: RAD 12:22
PROVIDERS: ATTEND Nurse Practitioner Adult Health
DX: C56.2 Malignant neoplasm of left ovary (principal); K63.89 Other specified diseases of intestine; E86.0 Dehydration; N18.3 Chronic kidney disease, stage 3 (moderate); Z95.828 Presence of other vascular implants and grafts
CPT/HCPCS: 71260; 74178

== ENCOUNTER 2019-01-05 15:45 | Observation (INO) | payer MEDICARE, OTHER ==
[~2019-01-05] VITALS: Ht 165.1 cm; Wt 78.6 kg
[2019-01-05] VITALS (8 sets, daily range): BP systolic 105–198; BP diastolic 54–122
[~2019-01-05 15:45] MED LIST changes: -HOLD METFORMIN - RECEIVED CONTRAST 20 ML VIAL IV SCH; -IOHEXOL 350 MG/ML 100 ML (OMNIPAQUE 350) VIAL IV ONE
--- NOTE | 2019-01-05 15:45 | NUR ---
CORBY HERNANDEZ admitted to room CU8-1, with an admitting diagnosis of CHEMO REACTION, on 01/05/19 from [facility] via [facility], accompanied by STAFF.CORBY HERNANDEZ introduced to surroundings, call light, bed controls, phone, TV, temperature control, lights, meal times, smoking policy, visitor policy, side rail policy, bathrooms and showers. Patient Rights given to patient in the handbook. CORBY HERNANDEZ verbalizes understanding that [facility] is not responsible for the loss or damage to any personal effects or valuables that are kept in the patients posession during their hospitalization. The following Patient Care Plans were discussed with the PT: Discharge Planning, PAIN,HIGH RISK BLEEDING, and HIGH RISK INFECTION. CORBY HERNANDEZ verbalizes understanding of Interdisciplinary Patient Education. Patient and family were informed about the Rapid Response Team and its purpose.
--- OUTSIDE RECORDS SUMMARY | 2019-01-05 15:55 | XMS REPORT | Clinical Summary ---
Author Author [facility] Organization [facility] Address Unknown Phone Unavailable Care Team Providers Care Principle Industrial Hygienist Name Role Phone Brianna Barnett DO Unavailable Anthony Gonzalez MD PCP Source Comments Some departments are not documenting in the electronic medical record. If you do not see the information that you expected, contact Release of Information in the Health Information Management department at [phone] for further assistance in locating additional records.[facility] Allergies Comments Active Allergy Reactions Severity Noted Date Patient has a history of chronic urticaria and angioedema, should not use angioedema. Lisinopril ANGIOEDEMA 05/22/2013 Medications End Date Status Medication Sig Dispensed Refills Start Date Active hydrochlorothiazide Take 25 mg by 0 (HYDRODIURIL) 25 mg mouth daily. tablet Active olmesartan(+) (BENICAR) Take 20 mg by 0 20 mg tablet mouth daily. Active glipiZIDE CR (GLUCOTROL Take 10 mg by 0 XL) 10 mg tablet mouth daily. Active diphenhydrAMINE Take 25 mg by 0 (BENADRYL) 25 mg capsule mouth every 6 hours as needed. Active omeprazole DR(+) Take 20 mg by 0 (PRILOSEC) 20 mg capsule mouth daily. Active acetaminophen (TYLENOL) Take 500 mg 0 500 mg tablet by mouth every 6 hours as needed. Active ANTIOX Take by 0 #11/OM3/DHA/EPA/LUT/GREGORY mouth. (OCUVITE ADULT 50+ PO) Active hydrOXYzine (ATARAX) 25 Take 1-4 100 Tab 1 05/22/201 mg tablet tablets 3 nightly for hives. May cause sedation. Active cetirizine (ZYRTEC) 10 mg Take 1 Tab by 90 Tab 3 tablet mouth daily. 3 Active epinephrine(+) (EPIPEN Inject 0.3 mL 2 Each 2 JR) 0.15 mg/0.3 mL to area(s) as 3 (1:2,000) syringe directed as Needed (for severe swelling reaction, please seek emergent [...] get a medical ID bracelet. Social History Date Tobacco Use Types Packs/Day Years Used Quit: 01/06/1952 Former Smoker 3 Alcohol Use Drinks/Week oz/Week Comments No Sex Assigned at Date Recorded Not on file Industry Job Start Date Occupation Not on file Not on file Not on file Travel End Travel History Travel Start No recent travel history available. Last Filed Vital Signs Time Taken Vital Sign Reading 06/23/2013 11:03 AM CDT Blood Pressure 165/82 06/23/2013 11:03 AM CDT Pulse 79 06/23/2013 11:03 AM CDT Temperature 36.1 C (96.9 F) 06/23/2013 11:03 AM CDT Respiratory Rate 16 - Oxygen Saturation - - Inhaled Oxygen - Concentration 06/23/2013 11:03 AM CDT Weight 81.2 kg (179 lb) 06/23/2013 11:03 AM CDT Height 163.6 cm (5' 4.4") 06/23/2013 11:03 AM CDT Body Mass Index 30.34 Plan of Treatment Health Maintenance Due Date Last Done Comments PHYSICAL (COMPREHENSIVE) 1936 EXAM DTAP/TDAP VACCINES (1 - 1947 Tdap) SHINGLES RECOMBINANT 1979 VACCINE (1 of 2) OSTEOPOROSIS 1994 SCREENING/MONITORING PNEUMONIA (PCV13/PPSV23) 1994 VACCINES (1 of 2 - PCV13) INFLUENZA VACCINE 04/13/2019 Results Not on filefrom Last 3 Months Insurance Type Payer Benefit Subscriber ID Effective Phone Address Plan / Dates Group Medicare MEDICARE MEDICARE xxxxxxxxxx 1994-P PART B resent Indemnity GENERIC COMMERCIAL GENERIC xxxxxxxxxx 2011-P COMMERCIAL resent Advance Directives Patient has advance care planning documents on file. For more information, please contact: [facility] [address] [place] [address]
--- OUTSIDE RECORDS SUMMARY | 2019-01-05 16:00 | XMS REPORT | Continuity of Care Document ---
Author Organization Unknown Address Unknown Allergies Active Description Code Type Severity Reaction Onset Reported/Identified Relationship to Patient Clinical Status Yes TAPE TAPE Mild N/ A 07/24/2009 Yes prednisone [id number] Drug Allergy Unknown N/A 01/21/2010 Yes ranitidine [id number] Drug Allergy Unknown N/A 01/21/2010 Yes omeprazole [id number] Drug Allergy Moderate HIVES 03/08/2013 Yes fexofenadine [id number] Drug Allergy Unknown N/A 01/07/2015 Yes hydrochlorothiazide [id number] Drug Allergy Unknown N/A 01/07/2015 Yes irbesartan [id number] Drug Allergy Unknown N/A 01/07/2015 Medications There [...] MANAGEMENT 08/12/1020 AUTUMN LINN Ot Z79.899 OTHER PROVIDER RELATIONS COORDINATOR (CURRENT) DRUG THERAPY 08/12/1020 AUTUMN LINN Ot Z92.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 ANTINEOPLASTIC CHEMO 12/16/2008 Ot 183.0 12/16/2008 Ot 197.6 12/16/2008 Ot V45.77 12/16/2008 Ot V58.69 12/16/2008 Ot V58.81 12/16/2008 Ot V87.41 03/27/2009 Ot V10.43 03/27/2009 Ot V45.77 03/27/2009 Ot V58.66 03/27/2009 Ot V58.69 03/27/2009 Ot V67.2 PERSON OUTSIDE HV VEH INJ IN CLSN W STAT 06/26/2009 Ot 723.1 CERVICALGIA 06/26/2009 Ot V10.43 HX OF OVARIAN MALIGNANCY 06/26/2009 Ot V58.66 LONG-TERM ( CURRENT) USE OF ASPIRIN 06/26/2009 Ot V58.69 OTH MED,LT, CURRENT USE 06/26/2009 Ot V67.2 CHEMOTHERAPY FOLLOW-UP 09/17/2009 Ot 723.1 CERVICALGIA 09/17/2009 Ot 723.5 TORTICOLLIS NOS 09/17/2009 Ot V10.43 HX OF OVARIAN MALIGNANCY 09/17/2009 Ot V45.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 09/17/2009 Ot V58.66 LONG-TERM ( CURRENT) USE OF ASPIRIN 09/17/2009 Ot V58.69 OTH MED,LT, CURRENT USE 09/17/2009 Ot V67.2 CHEMOTHERAPY FOLLOW-UP 06/15/2012 Ot 585.3 CHRONIC KIDNEY DISEASE, STAGE III (MODER 06/15/2012 Ot V10.43 HX OF OVARIAN MALIGNANCY 06/15/2012 Ot V45.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 06/15/2012 Ot V58.69 OTH MED,LT, CURRENT USE 06/15/2012 Ot V58.81 FIT/ADJ VASCULAR CATHETER 06/15/2012 Ot V67.2 CHEMOTHERAPY FOLLOW-UP 12/07/2012 Ot 585.3 CHRONIC KIDNEY DISEASE, STAGE III (MODER 12/07/2012 Ot V10.43 HX OF OVARIAN MALIGNANCY 12/07/2012 Ot V45.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 12/07/2012 Ot V58.69 OTH MED,LT, CURRENT USE 12/07/2012 Ot V58.81 FIT/ADJ VASCULAR CATHETER 12/07/2012 Ot V67.2 CHEMOTHERAPY FOLLOW-UP 01/15/2013 RUDI BRISENO DO Ot 784.99 OTHER SYMPTOMS INVOLVING HEAD AND NECK 03/09/2013 TIMI PINZON, CARMELLA Dumas Ot 276.1 HYPOSMOLALITY 03/09/2013 TIMI PINZON, CARMELLA Dumas Ot 288.60 LEUKOCYTOSIS, UNSPECIFIED 03/09/2013 TIMI PINZON, CARMELLA Dumas Ot 401.9 HYPERTENSION NOS 03/09/2013 TIMI PINZON, CARMELLA Dumas Ot 784.2 SWELLING IN HEAD NECK 03/09/2013 TIMI PINZON, CARMELLA Dumas Ot 995.1 ANGIONEUROTIC EDEMA 03/15/2013 AUTUMN LINN Ot 585.3 CHRONIC KIDNEY DISEASE, STAGE III (MODER 03/15/2013 AUTUMN LINN Ot V10.43 HX OF OVARIAN MALIGNANCY 03/15/2013 AUTUMN LINN Ot V45.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 03/15/2013 AUTUMN LINN Ot V58.69 OTH MED,LT,CURRENT USE 03/15/2013 AUTUMN LINN Ot V58.81 FIT/ADJ VASCULAR CATHETER 03/15/2013 AUTUMN LINN Ot V67.2 CHEMOTHERAPY FOLLOW-UP 04/05/2013 MECHELLE GREER NETWORK SYSTEMS ANALYST Ot 250.00 DIAB BABAK WO COMPL, TYPE II OR UNSPEC TY 04/05/2013 MECHELLE [employer] SYSTEMS ANALYST Ot 272.0 PURE HYPERCHOLESTEROLEM 04/05/2013 MECHELLE [employer] SYSTEM[employer] ANALYST Ot 401.9 HYPERTENSION NOS 04/05/2013 MECHELLE [employer] SYSTEMS ANALYST Ot 995.1 ANGIONEUROTIC EDEMA 04/05/2013 MECHELLE [employer] SYSTEMS ANALYST Ot V58.66 LONG-TERM (CURRENT) USE OF ASPIRIN 04/05/2013 MECHELLE [employer] ANALYST Ot V58.69 OTH MED,LT,CURRENT USE 07/19/2013 AUTUMN LINN Ot 585.3 CHRONIC KIDNEY DISEASE, STAGE III (MODER 07/19/2013 AUTUMN LINN Ot V10.43 HX OF OVARIAN MALIGNANCY 07/19/2013 AUTUMN LINN Ot V45.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 07/19/2013 AUTUMN LINN Ot V58.69 OTH MED,LT,CURRENT USE 07/19/2013 AUTUMN LINN Ot V58.81 FIT/ADJ VASCULAR CATHETER 07/19/2013 AUTUMN LINN Ot V67.2 CHEMOTHERAPY FOLLOW-UP 11/06/2013 AUTUMN LINN Ot 585.3 CHRONIC KIDNEY DISEASE, STAGE III (MODER 11/06/2013 AUTUMN LINN Ot V10.43 HX OF OVARIAN MALIGNANCY 11/06/2013 KAVEH, BOBAN N Ot V45.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 11/06/2013 KAVEHAUTUMN N Ot V58.69 OTH MED,LT,CURRENT USE 11/06/2013 KAVEHMANASEZE N Ot V58.81 FIT/ADJ VASCULAR CATHETER 11/06/2013 KAVEHMANAS TURNEREZE N Ot V67.2 CHEMOTHERAPY FOLLOW-UP 03/13/2014 KAVEH AUTUMN N Ot 585.3 CHRONIC KIDNEY DISEASE, STAGE III (MODER 03/13/2014 KAVEH AUTUMN N Ot V10.43 HX OF OVARIAN MALIGNANCY 03/13/2014 KAVEHAUTUMN N Ot V45.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 03/13/2014 KAVEHAUTUMN TURNER N Ot V58.69 OTH MED,LT,CURRENT USE 03/13/2014 KAVEHMANASEZE N Ot V58.81 FIT/ADJ VASCULAR CATHETER 03/13/2014 KAVEHAUTUMN TURNER N Ot V67.2 CHEMOTHERAPY FOLLOW-UP 07/18/2014 KAVEHAUTUMN N Ot 585.3 CHRONIC KIDNEY DISEASE, STAGE III (MODER 07/18/2014 KAVEHMANASEZE N Ot V10.43 HX OF OVARIAN MALIGNANCY 07/18/2014 KAVEHMANASEZE N Ot V45.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 07/18/2014 AUTUMN LINN N Ot V58.69 OTH MED,LT,CURRENT USE 07/18/2014 AUTUMN LINN N Ot V58.81 FIT/ADJ VASCULAR CATHETER 07/18/2014 KAVEH, AUTUMN N Ot V67.2 CHEMOTHERAPY FOLLOW-UP 08/17/2014 YARY [facility] FACP CCDS Ot 272.4 08/17/2014 YARY PINZON FAC, ALI FACP CCDS Ot 414.00 08/27/2014 KAVEHAUTUMN N Ot 585.3 08/27/2014 KAVEH BOBEZE N Ot V10.43 08/27/2014 KAVEH BOBEZE N Ot V45.77 08/27/2014 KAVEH BOBAN N Ot V58.69 08/27/2014 KAVEH BOBAN N Ot V58.81 08/27/2014 KAVEH BOBAN N Ot V67.2 08/28/2014 KAVEH BOBEZE N Ot 585.3 08/28/2014 KAVEH, BOBAN N Ot V10.43 08/28/2014 KAVEH, BOBAN N Ot V45.77 08/28/2014 KAVEH, BOBAN N Ot V58.69 08/28/2014 KAVEH, BOBAN N Ot V58.81 08/28/2014 KAVEH, BOBEZE N Ot V67.2 10/11/2014 KAVEH, BOBAN N Ot 585.3 10/11/2014 KAVEH, BOBEZE N Ot V10.43 10/11/2014 KAVEH, BOBAN N Ot V45.77 10/11/2014 KAVEH, BOBAN N Ot V58.69 10/11/2014 KAVEH, BOBAN N Ot V58.81 10/11/2014 KAVEH, BOBEZE N Ot V67.2 11/01/2014 KAVEH, BOBEZE N Ot 585.3 11/01/2014 KAVEH, BOBEZE N Ot V10.43 11/01/2014 KAVEH, BOBAN N Ot V45.77 11/01/2014 KAVEH, BOBAN N Ot V58.69 11/01/2014 KAVEH, BOBAN N Ot V58.81 11/01/2014 KAVEH, BOBAN N Ot V67.2 11/25/2014 KAVEH, BOBAN N Ot 585.3 CHRONIC KIDNEY DISEASE, STAGE III (MODER 11/25/2014 KAVEHMANASAN N Ot V10.43 HX OF OVARIAN MALIGNANCY 11/25/2014 KAVEH, BOBAN N Ot V45.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 11/25/2014 KAVEHMANASAN N Ot V58.69 OTH MED,LT,CURRENT USE 11/25/2014 KAVEH, BOBAN N Ot V58.81 FIT/ADJ VASCULAR CATHETER 11/25/2014 KAEVH, BOBAN N Ot V67.2 CHEMOTHERAPY FOLLOW-UP 12/31/2014 KAVEH, BOBAN N Ot 585.3 12/31/2014 [...] 01/01/2015 KAVEH, BOBAN N Ot V67.2 02/07/2015 MIQUEL STRATTON MD Ot 122.3 ECHINOCOCC GRANUL NEC 02/07/2015 MIQUEL STRATTON MD Ot 183.0 MALIGN NEOPL OVARY 02/07/2015 MIQUEL STRATTON MD Ot 250.00 DIAB BABAK WO COMPL, TYPE II OR UNSPEC TY 02/07/2015 MIQUEL STRATTON MD Ot 272.0 PURE HYPERCHOLESTEROLEM 02/07/2015 MIQUEL STRATTON MD Ot 401.9 HYPERTENSION NOS 02/07/2015 MIQUEL STRATTON MD Ot 455.0 INT HEMORRHOID W/O COMPL 02/07/2015 MIQUEL STRATOTN MD Ot 562.10 DIVERTICULOSIS COLON (W/O MENT OF HEMORR 02/07/2015 MIQUEL STRATTON MD Ot 715.35 LOC OSTEOARTH NOS-PELVIS 02/09/2015 GARDENIA KESSLER DO Ot 789.30 02/11/2015 AUTUMN LINN N Ot 585.3 02/11/2015 KAVEHAUTUMN TURNER N Ot V10.43 02/11/2015 KAVEH BOBEZE N Ot V45.77 02/11/2015 KAVEH BOBEZE N Ot V58.69 02/11/2015 KAVEH BOBEZE N Ot V58.81 02/11/2015 KAVEH BOBEZE N Ot V67.2 03/06/2015 ALVARADO, DHARMESH S 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 Ot 585.3 03/06/2015 ALVARADO DHARMESH S 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 Ot V10.43 03/06/2015 ALVARADO HILAH S 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 Ot V45.77 03/06/2015 ALVARADO HILAH S 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 Ot V58.69 03/06/2015 ALVARADO HILMISSY S 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 Ot V58.81 03/06/2015 ALVARADO, DHARMESH S 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 Ot V67.2 03/07/2015 VIRAL PINZON, PAMAAKI Ot 789.30 03/07/2015 VIRAL PINZON, PAMAAKI Ot V10.43 03/07/2015 VIRAL PINZON, TAKAAKI Ot V72.63 03/07/2015 VIRAL PINZON, TAKAAKI Ot V74.8 03/14/2015 SAMI PINZON, YO R Ot 250.00 03/19/2015 KAVEHAUTUMN N Ot 585.3 03/19/2015 KAVEHAUTUMN TURNER N Ot V10.43 03/19/2015 KAVEH BOBEZE N Ot V45.77 03/19/2015 KAVEHAUTUMN N Ot V58.69 03/19/2015 KAVEHAUTUMN TURNER N Ot V58.81 03/19/2015 KAVEH BOBEZE N Ot V67.2 03/31/2015 KAVEH BOBEZE N Ot 585.3 CHRONIC KIDNEY DISEASE, STAGE III (MODER 03/31/2015 KAVEHAUTUMN N Ot V10.43 HX OF OVARIAN MALIGNANCY 03/31/2015 AUTUMN LINN N Ot V45.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 03/31/2015 KAVEHAUTUMN TURNER N Ot V58.69 OTH MED,LT,CURRENT USE 03/31/2015 KAVHE BOBAN N Ot V58.81 FIT/ADJ VASCULAR CATHETER 03/31/2015 KAVEHAUTUMN TURNER N Ot V67.2 CHEMOTHERAPY FOLLOW-UP 04/02/2015 KAVEH, BOBAN N Ot 585.3 04/02/2015 [...] BOBAN N Ot V58.69 04/27/2015 MECHELLE GRE[employer] SYSTEMS ANALYST Ot 250.00 DIAB BABAK WO COMPL, TYPE II OR UNSPEC TY 04/27/2015 MECEHLLE GRE[employer]WORK SYSTEMS ANALYST Ot 724.5 BACKACHE NOS 05/10/2015 DHARMESH ALVARADO 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 Ot 183.0 05/10/2015 DHARMESH ALVARADO 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 Ot 198.2 05/10/2015 DHARMESH ALVARADO 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 Ot 357.6 05/10/2015 DHARMESH ALVARADO 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 Ot 528.9 05/10/2015 DHARMESH ALVARADO 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 Ot 585.3 05/10/2015 DHARMESH ALVARADO 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 Ot 787.91 05/10/2015 DHARMESH ALVARADO S 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 Ot E849.7 05/10/2015 ALVARADO DHARMESH Yamini 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 Ot E933.1 05/10/2015 ALVARADO DHARMESH Kc 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 Ot V58.69 05/10/2015 ALVARADOCHARLESMISSY Yamini 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 Ot V88.01 05/14/2015 SAMI PINZON, YO R Ot 199.0 MALIG ARELI DISSEMINATED 05/14/2015 SAMI PINZON, YO R Ot 250.00 DIAB BABAK WO COMPL, TYPE II OR UNSPEC TY 05/14/2015 SAMI PINZON, YO R Ot 285.9 ANEMIA NOS 05/14/2015 SAMI PINZON, YO R Ot 311 DEPRESSIVE DISORDER NEC 05/14/2015 SAMI PINZON, YO R Ot 333.81 BLEPHAROSPASM 05/14/2015 SAMI PINZON, YO R Ot 493.90 ASTHMA, UNSPECIFIED 05/14/2015 SAMI PINZON, YO R Ot 530.81 ESOPHAGEAL REFLUX 05/14/2015 SAMI PINZON, YO R Ot 564.09 OTHER CONSTIPATION 05/14/2015 SAMI PINZON, YO R Ot 715.09 GENERAL OSTEOARTHROSIS 05/14/2015 SAMI PINZON, YO R Ot 722.93 DISC DIS NEC/NOS-LUMBAR 05/14/2015 SMAI PINZON, YO R Ot 730.28 OSTEOMYELIT NOS-OTH SITE 05/14/2015 SAMI PINZON, YO R Ot 733.13 PATHOLOGIC FRACTURE, VERTEBRAE 05/14/2015 SAMI PINZON, YO R Ot V10.43 HX OF OVARIAN MALIGNANCY 05/14/2015 SAMI PINZON, YO R Ot V12.79 PERSONAL HISTORY OTH SPEC DIGESTIVE SYST 05/14/2015 SAMI PINZON, YO R Ot V15.82 HISTORY OF TOBACCO USE 05/14/2015 YO GALLARDO MD R Ot V58.69 OTH MED,LT,CURRENT USE 05/14/2015 AUTUMN LINN Ot 183.0 05/14/2015 AUTUMN LINN Ot 585.3 05/14/2015 AUTUMN LINN Ot V45.77 05/14/2015 AUTUMN LINN Ot V58.11 05/14/2015 AUTUMN LINN Ot V58.69 05/21/2015 SAMI PINZON, YO R [...] YO R Ot 276.8 05/30/2015 AUTUMN LINN Ot 183.0 05/30/2015 AUTUMN LINN Ot 585.3 [...] 276.8 06/12/2015 AUTUMN LINN N Ot 183.0 MALIGN NEOPL OVARY 06/12/2015 AUTUMN LINN Ot 585.3 CHRONIC KIDNEY DISEASE, STAGE III (MODER 06/12/2015 AUTUMN LINN Ot V45.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 06/12/2015 AUTUMN LINN Ot V58.11 ENCOUNTER FOR ANTINEOPLASTIC CHEMOTHERAP 06/12/2015 AUTUMN LINN Ot V58.69 OTH MED,LT,CURRENT USE 06/12/2015 YO GALLARDO MD R Ot 276.8 HYPOPOTASSEMIA 06/12/2015 YO GALLARDO MD R Ot 276.8 06/13/2015 YO GALLARDO MD Ot 276.8 06/17/2015 YO GALLARDO MD Ot C56.9 MALIGNANT NEOPLASM OF UNSPECIFIED OVARY 06/17/2015 YO GALLARDO MD Ot C79.9 SECONDARY MALIGNANT NEOPLASM OF UNSPECIF 06/17/2015 YO GALLARDO MD Ot E11.9 TYPE 2 DIABETES MELLITUS WITHOUT COMPLIC 06/17/2015 YO GALLARDO MD R Ot J18.9 PNEUMONIA, UNSPECIFIED ORGANISM 06/17/2015 YO GALLARDO MD R Ot J44.9 CHRONIC OBSTRUCTIVE PULMONARY DISEASE, U 06/17/2015 YO GALLARDO MD Ot K21.9 GASTRO-ESOPHAGEAL REFLUX DISEASE WITHOUT 06/17/2015 YO GALLARDO MD Ot M46.40 DISCITIS, UNSPECIFIED, SITE UNSPECIFIED 06/17/2015 YO GALLARDO MD Ot Z79.2 PROVIDER RELATIONS COORDINATOR (CURRENT) USE OF ANTIBIOTICS 06/17/2015 YO GALLARDO MD R Ot Z87.891 PERSONAL HISTORY OF NICOTINE DEPENDENCE 06/18/2015 YO GALLARDO MD R Ot C56.9 06/18/2015 YO GALLARDO MD Ot C79.9 06/18/2015 OY GALLARDO MD Ot E11.9 06/18/2015 YO GALLARDO MD R Ot J18.9 06/18/2015 YO GALLARDO MD R Ot J44.9 06/18/2015 YO GALLARDO MD Ot K21.9 06/18/2015 YO GALLARDO MD Ot M46.40 06/18/2015 YO GALLARDO MD Ot Z79.2 06/18/2015 SAMI PINZON, YO R [...] SAMI PINZON, YO R Ot Z79.2 06/18/2015 SMAI PINZON, YO R Ot Z87.891 06/18/2015 SAMI [...] PINZON, YO R Ot 276.8 06/25/2015 SAMI PINZNO, YO R Ot 276.8 06/26/2015 SAMI PINZON, YO R Ot 276.8 07/24/2015 DHARMESH ALVARADO 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 Ot C56.9 07/24/2015 DHARMESH ALVARADO 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 Ot C79.2 07/24/2015 DHARMESH ALVARADO 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 Ot N18.3 07/24/2015 DHARMESH ALVARADO 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 Ot Z79.899 07/25/2015 KAVEHAUTUMN TURNER N Ot 183.0 07/25/2015 KAEVH, BOBAN N Ot 585.3 07/25/2015 KAVEH, MANASAN N Ot V45.77 07/25/2015 KAVEH, BOBAN N Ot V58.11 07/25/2015 KAVEH, BOBAN N Ot V58.69 07/31/2015 ZO HOUSTON DO Ot R06.00 08/13/2015 SAMI PINZON, YO R Ot 276.8 08/30/2015 KAVEH, MANASAN N Ot 183.0 08/30/2015 KAVEH, BOBEZE N Ot 585.3 08/30/2015 KAVEH, BOBAN N Ot V45.77 08/30/2015 KAVEH, BOBEZE N Ot V58.11 08/30/2015 KAVEH, BOBAN N Ot V58.69 09/11/2015 SAMI PINZON, YO R Ot M46.40 DISCITIS, UNSPECIFIED, SITE UNSPECIFIED 09/18/2015 KAVEH, BOBAN N Ot C56.2 09/18/2015 KAVEH, BOBAN N Ot C79.2 09/18/2015 KAVEH, BOBAN N Ot M46.40 09/18/2015 KAVEH, BOBEZE N Ot N18.3 09/18/2015 KAVEH, MANASAN N Ot Z79.899 09/18/2015 KAVEH, BOBAN N Ot Z92.21 10/30/2015 KAVEH, BOBAN N Ot 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 10/30/2015 KAVEH, BOBAN N Ot 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 10/30/2015 KAVEH, BOBAN N Ot M46.40 DISCITIS, UNSPECIFIED, SITE UNSPECIFIED 10/30/2015 KAVEH, BOBAN N Ot N18.3 CHRONIC KIDNEY DISEASE, STAGE 3 (MODERAT 10/30/2015 KAVEH, BOBAN N Ot Z79.899 OTHER PENITENTIARY (CURRENT) DRUG THERAPY 10/30/2015 KAVEH, MANASAN N Ot Z92.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 ANTINEOPLASTIC CHEMO 11/14/2015 DHARMESH ALVARADOP Ot C56.2 11/14/2015 DHARMESH ALVARADO 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 Ot C79.2 11/14/2015 DHARMESH ALVARADO 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 Ot M46.40 11/14/2015 DHARMESH ALVARADO 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 Ot N18.3 11/14/2015 DHARMESH ALVARADO 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 Ot Z79.899 11/14/2015 DHARMESH ALVARADO 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 Ot Z92.21 11/15/2015 JOJO INIGUEZ 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 Ot E78.0 11/15/2015 JOJO INIGUEZ 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 Ot I10 11/15/2015 BAIJOJO LERMA 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 Ot I25.10 11/15/2015 BAIJOJO LERMA L 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 Ot I73.9 11/15/2015 BAIJOJO LERMA 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 Ot I77.9 01/03/2016 AUTUMN LINN N Ot 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 01/03/2016 AUTUMN LINN N Ot 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 01/03/2016 AUTUMN LINN N Ot M46.40 DISCITIS, UNSPECIFIED, SITE UNSPECIFIED 01/03/2016 AUTUMN LINN N Ot N18.3 CHRONIC KIDNEY DISEASE, STAGE 3 (MODERAT 01/03/2016 AUTUMN LINN N Ot Z45.2 ENCOUNTER FOR ADJUSTMENT AND MANAGEMENT 01/03/2016 AUTUMN LINN N Ot Z79.899 OTHER PROVIDER RELATIONS COORDINATOR (CURRENT) DRUG THERAPY 01/03/2016 AUTUMN LINN N Ot Z92.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 ANTINEOPLASTIC CHEMO 01/12/2016 Ot 183.0 03/10/2016 AUTUMN LINN N Ot 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 03/10/2016 AUTUMN LINN N Ot 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 03/10/2016 AUTUMN LINN N Ot M46.40 DISCITIS, UNSPECIFIED, SITE UNSPECIFIED 03/10/2016 AUTUMN LINN N Ot N18.3 CHRONIC KIDNEY DISEASE, STAGE 3 (MODERAT 03/10/2016 KAVEHAUTUMN TURNER N Ot Z45.2 ENCOUNTER FOR ADJUSTMENT AND MANAGEMENT 03/10/2016 AUTUMN LINN N Ot Z79.899 OTHER PROVIDER RELATIONS COORDINATOR (CURRENT) DRUG THERAPY 03/10/2016 AUTUMN LINN Ot Z92.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 ANTINEOPLASTIC CHEMO 03/13/2016 Ot 183.0 04/17/2016 AUTUMN LINN Ot 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 04/17/2016 AUTUMN LINN Ot 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 04/17/2016 AUTUMN LINN Ot M46.40 DISCITIS, UNSPECIFIED, SITE UNSPECIFIED 04/17/2016 AUTUMN LINN Ot N18.3 CHRONIC KIDNEY DISEASE, STAGE 3 (MODERAT 04/17/2016 AUTUMN LINN Ot Z45.2 ENCOUNTER FOR ADJUSTMENT AND MANAGEMENT 04/17/2016 AUTUMN LINN Ot Z79.899 OTHER PROVIDER RELATIONS COORDINATOR (CURRENT) DRUG THERAPY 04/17/2016 AUTUMN LINN Ot Z92.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 ANTINEOPLASTIC CHEMO 04/17/2016 YO GALLARDO MD R Ot E11.9 TYPE 2 DIABETES MELLITUS WITHOUT COMPLIC 04/17/2016 YO GALLARDO MD R Ot 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 [place] ART W 04/17/2016 YO GALLARDO MD R Ot E11.9 TYPE 2 DIABETES MELLITUS WITHOUT COMPLIC 04/17/2016 YO GALLARDO MD R Ot 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 [place] ART W 04/20/2016 YO GALLARDO MD R Ot E11.9 TYPE 2 DIABETES MELLITUS WITHOUT COMPLIC 04/20/2016 YO GALLARDO MD R Ot 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 [place] ART W 04/20/2016 YO GALLARDO MD R Ot E11.9 TYPE 2 DIABETES MELLITUS WITHOUT COMPLIC 04/20/2016 YO GALLARDO MD R Ot E78.4 OTHER HYPERLIPIDEMIA 04/20/2016 YO GALLARDO MD R Ot I10 ESSENTIAL (PRIMARY) HYPERTENSION 04/20/2016 YO GALLARDO MD R Ot 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 [place] [facility] ART W 04/20/2016 YO GALLARDO MD R Ot I73.9 PERIPHERAL VASCULAR DISEASE, UNSPECIFIED 04/23/2016 YO GALLARDO MD R Ot E11.9 TYPE 2 DIABETES MELLITUS WITHOUT COMPLIC 04/23/2016 SEGLIE MD, YO R Ot E78.4 OTHER HYPERLIPIDEMIA 04/23/2016 SAMI PINZON, YO R Ot I10 ESSENTIAL (PRIMARY) HYPERTENSION 04/23/2016 SAMI PINZON, YO R Ot 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 [place] [facility] ART W 04/23/2016 MARINA GALLARDO MDYD R Ot I73.9 PERIPHERAL VASCULAR DISEASE, UNSPECIFIED 04/24/2016 DHARMESH ALVARADO 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 Ot 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 04/24/2016 DHARMESH ALVARADO 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 Ot 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 04/24/2016 DHARMESH ALVARADO 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 Ot M46.40 DISCITIS, UNSPECIFIED, SITE UNSPECIFIED 04/24/2016 DHARMESH ALVARADO 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 Ot N18.3 CHRONIC KIDNEY DISEASE, STAGE 3 (MODERAT 04/24/2016 DHARMESH ALVARADO S 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 Ot Z79.899 OTHER PROVIDER RELATIONS COORDINATOR (CURRENT) DRUG THERAPY 04/24/2016 DHARMESH ALVARADO 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 Ot Z92.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 ANTINEOPLASTIC CHEMO 05/08/2016 SAMI PINZON, YO R Ot E11.9 TYPE 2 DIABETES MELLITUS WITHOUT COMPLIC 05/08/2016 MARINA GALLARDO MDYD R Ot E78.4 OTHER HYPERLIPIDEMIA 05/08/2016 SAMI PINZON, OY R Ot I10 ESSENTIAL (PRIMARY) HYPERTENSION 05/08/2016 SAMI PINZON, YO R Ot 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 [place] ART W 05/08/2016 YO GALLARDO MD R Ot I73.9 PERIPHERAL VASCULAR DISEASE, UNSPECIFIED 05/15/2016 DHARMESH ALVARADOP Ot 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 05/15/2016 DHARMESH ALVARADO 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 Ot 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 05/15/2016 DHARMESH ALVARADO 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 Ot M46.40 DISCITIS, UNSPECIFIED, SITE UNSPECIFIED 05/15/2016 DHARMESH ALVARADO 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 Ot N18.3 CHRONIC KIDNEY DISEASE, STAGE 3 (MODERAT 05/15/2016 DHARMESH ALVARADO 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 Ot Z79.899 OTHER PROVIDER RELATIONS COORDINATOR (CURRENT) DRUG THERAPY 05/15/2016 DHARMESH 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 Ot Z92.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 ANTINEOPLASTIC CHEMO 06/04/2016 KAVEH BOBAN N Ot 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 06/04/2016 KAVEH, BOBAN N Ot 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 06/04/2016 KAVEH, BOBAN N Ot M46.40 DISCITIS, UNSPECIFIED, SITE UNSPECIFIED 06/04/2016 KAVEH BOBEZE N Ot N18.3 CHRONIC KIDNEY DISEASE, STAGE 3 (MODERAT 06/04/2016 KAVEH BOBAN N Ot Z45.2 ENCOUNTER FOR ADJUSTMENT AND MANAGEMENT 06/04/2016 KAVEH, BOBAN N Ot Z79.899 OTHER PROVIDER RELATIONS COORDINATOR (CURRENT) DRUG THERAPY 06/04/2016 KAVEH, BOBAN N Ot Z92.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 ANTINEOPLASTIC CHEMO 06/13/2016 SAMI PINZON, YO R Ot 276.8 HYPOPOTASSEMIA 06/22/2016 KAVEH, BOBAN N Ot 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 06/22/2016 KAVEH, BOBEZE N Ot 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 06/22/2016 KAVEH, BOBAN N Ot M46.40 DISCITIS, UNSPECIFIED, SITE UNSPECIFIED 06/22/2016 KAVEH, BOBAN N Ot N18.3 CHRONIC KIDNEY DISEASE, STAGE 3 (MODERAT 06/22/2016 KAVEH BOBAN N Ot Z45.2 ENCOUNTER FOR ADJUSTMENT AND MANAGEMENT 06/22/2016 KAVEH, BOBAN N Ot Z79.899 OTHER PROVIDER RELATIONS COORDINATOR (CURRENT) DRUG THERAPY 06/22/2016 KAVEH, BOBAN N Ot Z92.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 ANTINEOPLASTIC CHEMO 07/14/2016 KAVEHAUTUMN N Ot 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 07/14/2016 KAVEH, BOBAN N Ot 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 07/14/2016 KAVEH, BOBAN N Ot M46.40 DISCITIS, UNSPECIFIED, SITE UNSPECIFIED 07/14/2016 KAVEH, BOBAN N Ot N18.3 CHRONIC KIDNEY DISEASE, STAGE 3 (MODERAT 07/14/2016 KAVEH, BOBAN N Ot Z45.2 ENCOUNTER FOR ADJUSTMENT AND MANAGEMENT 07/14/2016 KAVEH, BOBAN N Ot Z79.899 OTHER PROVIDER RELATIONS COORDINATOR (CURRENT) DRUG THERAPY 07/14/2016 KAVEH, BOBAN N Ot Z92.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 ANTINEOPLASTIC CHEMO 07/16/2016 KAVEHAUTUMN N Ot 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 07/16/2016 KAVEHAUTUMN N Ot 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 07/16/2016 KAVEH BOBAN N Ot M46.40 DISCITIS, UNSPECIFIED, SITE UNSPECIFIED 07/16/2016 KAVEHAUTUMN N Ot N18.3 CHRONIC KIDNEY DISEASE, STAGE 3 (MODERAT 07/16/2016 KAVEHAUTUMN N Ot Z45.2 ENCOUNTER FOR ADJUSTMENT AND MANAGEMENT 07/16/2016 KAVEHAUTUMN N Ot Z79.899 OTHER PENITENTIARY (CURRENT) DRUG THERAPY 07/16/2016 KAVEH BOBAN N Ot Z92.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 ANTINEOPLASTIC CHEMO 08/13/2016 Ot 183.0 09/10/2016 KAVEHAUTUMN N Ot 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 09/10/2016 KAVEHAUTUMN N Ot 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 09/10/2016 KAVEH BOBAN N Ot M46.40 DISCITIS, UNSPECIFIED, SITE UNSPECIFIED 09/10/2016 KAVEH BOBEZE N Ot N18.3 CHRONIC KIDNEY DISEASE, STAGE 3 (MODERAT 09/10/2016 KAVEH BOBAN N Ot Z79.899 OTHER PENITENTIARY (CURRENT) DRUG THERAPY 09/10/2016 KAVEH BOBEZE N Ot Z92.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 ANTINEOPLASTIC CHEMO 10/13/2016 KAVEHAUTUMN N Ot 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 10/13/2016 KAVEHAUTUMN N Ot 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 10/13/2016 KAVEHAUTUMN N Ot M46.40 DISCITIS, UNSPECIFIED, SITE UNSPECIFIED 10/13/2016 KAVEHAUTUMN N Ot N18.3 CHRONIC KIDNEY DISEASE, STAGE 3 (MODERAT 10/13/2016 KAVEH BOBAN N Ot Z45.2 ENCOUNTER FOR ADJUSTMENT AND MANAGEMENT 10/13/2016 KAVEH BOBAN N Ot Z79.899 OTHER PENITENTIARY (CURRENT) DRUG THERAPY 10/13/2016 KAVEH BOBAN N Ot Z92.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 ANTINEOPLASTIC CHEMO 10/14/2016 KAVEHAUTUMN N Ot 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 10/14/2016 KAVEH BOBAN N Ot 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 10/14/2016 KAVEHAUTUMN N Ot M46.40 DISCITIS, UNSPECIFIED, SITE UNSPECIFIED 10/14/2016 KAVEHAUTUMN TURNER N Ot N18.3 CHRONIC KIDNEY DISEASE, STAGE 3 (MODERAT 10/14/2016 KAVEHAUTUMN TURNER N Ot Z45.2 ENCOUNTER FOR ADJUSTMENT AND MANAGEMENT 10/14/2016 KAVEHAUTUMN N Ot Z79.899 OTHER PROVIDER RELATIONS COORDINATOR (CURRENT) DRUG THERAPY 10/14/2016 KAVEHAUTUMN N Ot Z92.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 ANTINEOPLASTIC CHEMO 11/24/2016 KAVEHAUTUMN N Ot 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 11/24/2016 KAVEH BOBEZE N Ot 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 11/24/2016 KAVEHAUTUMN N Ot M46.40 DISCITIS, UNSPECIFIED, SITE UNSPECIFIED 11/24/2016 KAEVHAUTUMN TURNER N Ot N18.3 CHRONIC KIDNEY DISEASE, STAGE 3 (MODERAT 11/24/2016 KAVEH BOBEZE N Ot Z45.2 ENCOUNTER FOR ADJUSTMENT AND MANAGEMENT 11/24/2016 KAVEHAUTUMN N Ot Z79.899 OTHER PENITENTIARY (CURRENT) DRUG THERAPY 11/24/2016 KAVEHAUTUMN N Ot Z92.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 ANTINEOPLASTIC CHEMO 12/12/2016 Ot 183.0 01/04/2017 KAVEHAUTUMN TURNER N Ot 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 01/04/2017 KAVEHAUTUMN TURNER N Ot 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 01/04/2017 KAVEHAUTUMN TURNER N Ot M46.40 DISCITIS, UNSPECIFIED, SITE UNSPECIFIED 01/04/2017 KAVEHAUTUMN N Ot N18.3 CHRONIC KIDNEY DISEASE, STAGE 3 (MODERAT 01/04/2017 KAVEHAUTUMN N Ot Z45.2 ENCOUNTER FOR ADJUSTMENT AND MANAGEMENT 01/04/2017 KAVEH BOBEZE N Ot Z79.899 OTHER PROVIDER RELATIONS COORDINATOR (CURRENT) DRUG THERAPY 01/04/2017 KAVEH BOBAN N Ot Z92.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 ANTINEOPLASTIC CHEMO 02/21/2017 KAVEHAUTUMN N Ot 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 02/21/2017 KAVEH BOBEZE N Ot 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 02/21/2017 KAVEH, BOBAN N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 02/22/2018 KAVEH, BOBAN N Ot Z79.899 OTHER PROVIDER RELATIONS COORDINATOR (CURRENT) DRUG THERAPY 02/22/2018 KAVEH, BOBAN N Ot Z92.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 ANTINEOPLASTIC CHEMO 04/04/2018 KAVEH, BOBAN N Ot 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 04/04/2018 KAVEH, BOBAN N Ot 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 04/04/2018 KAVEH, BOBAN N Ot D50.9 IRON DEFICIENCY ANEMIA, UNSPECIFIED 04/04/2018 KAVEH, BOBAN N Ot N18.3 CHRONIC KIDNEY DISEASE, STAGE 3 (MODERAT 04/04/2018 KAVEH, BOBAN N Ot Z79.899 OTHER PROVIDER RELATIONS COORDINATOR (CURRENT) DRUG THERAPY 04/04/2018 KAVEH, BOBAN N Ot Z92.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 ANTINEOPLASTIC CHEMO 05/22/2018 KAVEH, BOBAN N Ot 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 05/22/2018 KAVEH, BOBAN N Ot 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 05/22/2018 KAVEH, BOBAN N Ot D50.9 IRON DEFICIENCY ANEMIA, UNSPECIFIED 05/22/2018 KAVEH, BOBAN N Ot N18.3 CHRONIC KIDNEY DISEASE, STAGE 3 (MODERAT 05/22/2018 KAVEH, BOBAN N Ot Z79.899 OTHER PENITENTIARY (CURRENT) DRUG THERAPY 05/22/2018 KAVEH, BOBAN N Ot Z92.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 ANTINEOPLASTIC CHEMO 05/23/2018 KAVEH, BOBAN N Ot 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 05/23/2018 KAVEH, BOBAN N Ot 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 05/23/2018 KAVEH, BOBAN N Ot D50.9 IRON DEFICIENCY ANEMIA, UNSPECIFIED 05/23/2018 KAVEH, BOBAN N Ot N18.3 CHRONIC KIDNEY DISEASE, STAGE 3 (MODERAT 05/23/2018 KAVEH, BOBAN N Ot Z79.899 OTHER PENITENTIARY (CURRENT) DRUG THERAPY 05/23/2018 KAVEH, BOBAN N Ot Z92.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 ANTINEOPLASTIC CHEMO 05/25/2018 KAVEH, BOBAN N Ot 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 05/25/2018 KAVEHAUTUMN TURNER N Ot 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 05/25/2018 KAVEHAUTUMN N Ot D50.9 IRON DEFICIENCY ANEMIA, UNSPECIFIED 05/25/2018 AUTUMN LINN N Ot N18.3 CHRONIC KIDNEY DISEASE, STAGE 3 (MODERAT 05/25/2018 KAVEHAUTUMN TURNER N Ot Z79.899 OTHER PROVIDER RELATIONS COORDINATOR (CURRENT) DRUG THERAPY 05/25/2018 KAVEHAUTUMN TURNER N Ot Z92.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 ANTINEOPLASTIC CHEMO 06/06/2018 MIQUEL STRATTON MD Ot D64.9 ANEMIA, UNSPECIFIED 06/06/2018 VIRAL PINZON, TAKAAKI Ot Z85.46 PERSONAL HISTORY OF MALIGNANT NEOPLASM O 06/07/2018 MIQUEL STRATTON MD Ot D64.9 ANEMIA, UNSPECIFIED 06/07/2018 VIRAL PINZON, TAKAAKI Ot Z85.46 PERSONAL HISTORY OF MALIGNANT NEOPLASM O 06/12/2018 AUTUMN LINN N Ot 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 06/12/2018 AUTUMN LINN N Ot 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 06/12/2018 KAVEHAUTUMN N Ot D50.9 IRON DEFICIENCY ANEMIA, UNSPECIFIED 06/12/2018 AUTUMN LINN N Ot N18.3 CHRONIC KIDNEY DISEASE, STAGE 3 (MODERAT 06/12/2018 AUTUMN LINN N Ot Z79.899 OTHER PENITENTIARY (CURRENT) DRUG THERAPY 06/12/2018 AUTUMN LINN N Ot Z92.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 ANTINEOPLASTIC CHEMO 06/14/2018 AUTUMN LINN N Ot 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 06/14/2018 KAVEHAUTUMN N Ot 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 06/14/2018 KAVEHMANASAN N Ot D50.9 IRON DEFICIENCY ANEMIA, UNSPECIFIED 06/14/2018 KAVEHAUTUMN N Ot N18.3 CHRONIC KIDNEY DISEASE, STAGE 3 (MODERAT 06/14/2018 KAVEHAUTUMN TURNER N Ot Z79.899 OTHER PENITENTIARY (CURRENT) DRUG THERAPY 06/14/2018 KAVEHAUTUMN N Ot Z92.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 ANTINEOPLASTIC CHEMO 07/01/2018 SHELTON DO, JULITA Ot D64.9 ANEMIA, UNSPECIFIED 07/01/2018 SHELTON DO, JULITA Ot E11.9 TYPE 2 DIABETES MELLITUS WITHOUT COMPLIC 07/01/2018 SHELTON DO, JULITA Ot E87.2 ACIDOSIS 07/01/2018 SHELTON DO, JULITA Ot I11.0 HYPERTENSIVE HEART DISEASE WITH HEART FA 07/01/2018 SHELTON DO, JULITA Ot I50.9 HEART FAILURE, UNSPECIFIED 07/01/2018 SHELTON DO, JULITA Ot J18.9 PNEUMONIA, UNSPECIFIED ORGANISM 07/01/2018 SHELTON DO JULITA Ot J44.9 CHRONIC OBSTRUCTIVE PULMONARY DISEASE, U 07/01/2018 SHELTON DO, JULITA Ot K21.9 GASTRO-ESOPHAGEAL REFLUX DISEASE WITHOUT 07/01/2018 SHELTON DO, JULITA Ot K57.90 DVRTCLOS OF INTEST, PART UNSP, W/O PERF 07/01/2018 SHELTON DO JULITA Ot M19.91 PRIMARY OSTEOARTHRITIS, UNSPECIFIED SITE 07/01/2018 SHELTON DO JULITA Ot N17.9 ACUTE KIDNEY FAILURE, UNSPECIFIED 07/01/2018 NIKITA DO JULITA Ot R09.02 HYPOXEMIA 07/01/2018 NIKITA DO JULITA Ot Z85.43 PERSONAL HISTORY OF MALIGNANT NEOPLASM O 07/01/2018 SHELTON DO JULITA Ot Z87.891 PERSONAL HISTORY OF NICOTINE DEPENDENCE 07/01/2018 NIKITA DO JULITA Ot Z92.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 ANTINEOPLASTIC CHEMO 07/03/2018 NIKITA DO JULITA Ot D64.9 ANEMIA, UNSPECIFIED 07/03/2018 SHELTON DO, JULITA Ot E11.9 TYPE 2 DIABETES MELLITUS WITHOUT COMPLIC 07/03/2018 SHELTON DO, JULITA Ot E87.2 ACIDOSIS 07/03/2018 SHELTON DO, JULITA Ot I11.0 HYPERTENSIVE HEART DISEASE WITH HEART FA 07/03/2018 SHELTON DO, JULITA Ot I50.9 HEART FAILURE, UNSPECIFIED 07/03/2018 SHELTON DO JULITA Ot J18.9 PNEUMONIA, UNSPECIFIED ORGANISM 07/03/2018 SHELTON DO, JULITA Ot J44.9 CHRONIC OBSTRUCTIVE PULMONARY DISEASE, U 07/03/2018 SHELTON DO, JULITA Ot K21.9 GASTRO-ESOPHAGEAL REFLUX DISEASE WITHOUT 07/03/2018 SHELTON DO, JULITA Ot K57.90 DVRTCLOS OF INTEST, PART UNSP, W/O PERF 07/03/2018 SHELTON DO, JULITA Ot M19.91 PRIMARY OSTEOARTHRITIS, UNSPECIFIED SITE 07/03/2018 SHELTON DO JULITA Ot N17.9 ACUTE KIDNEY FAILURE, UNSPECIFIED 07/03/2018 SHELTON DO JULITA Ot R09.02 HYPOXEMIA 07/03/2018 SHELTON DO JULITA Ot Z85.43 PERSONAL HISTORY OF MALIGNANT NEOPLASM O 07/03/2018 SHELTON DO JULITA Ot Z87.891 PERSONAL HISTORY OF NICOTINE DEPENDENCE 07/03/2018 SHELTON DO JULITA Ot Z92.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 ANTINEOPLASTIC CHEMO 07/04/2018 SHELTON DO JULITA Ot D64.9 ANEMIA, UNSPECIFIED 07/04/2018 SHELTON DO JULITA Ot E11.9 TYPE 2 DIABETES MELLITUS WITHOUT COMPLIC 07/04/2018 NIKITA DO JULITA Ot E87.2 ACIDOSIS 07/04/2018 SHELTON DO JULITA Ot I11.0 HYPERTENSIVE HEART DISEASE WITH HEART FA 07/04/2018 NIKITA AGUIRRE JULITA Ot I50.9 HEART FAILURE, UNSPECIFIED 07/04/2018 NIKITA AGUIRRE JULITA Ot J18.9 PNEUMONIA, UNSPECIFIED ORGANISM 07/04/2018 NIKITA AGUIRRE JULITA Ot J44.9 CHRONIC OBSTRUCTIVE PULMONARY DISEASE, U 07/04/2018 NIKITA AGUIRRE JULITA Ot K21.9 GASTRO-ESOPHAGEAL REFLUX DISEASE WITHOUT 07/04/2018 SHELTON DO JULITA Ot K57.90 DVRTCLOS OF INTEST, PART UNSP, W/O PERF 07/04/2018 NIKITA DO JULITA Ot M19.91 PRIMARY OSTEOARTHRITIS, UNSPECIFIED SITE 07/04/2018 NIKITA DO JULITA Ot N17.9 ACUTE KIDNEY FAILURE, UNSPECIFIED 07/04/2018 SHELTON DO JULITA Ot R09.02 HYPOXEMIA 07/04/2018 SHELTON DO JULITA Ot Z85.43 PERSONAL HISTORY OF MALIGNANT NEOPLASM O 07/04/2018 NIKITA AGUIRRE JULITA Ot Z87.891 PERSONAL HISTORY OF NICOTINE DEPENDENCE 07/04/2018 NIKITA DO JULITA Ot Z92.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 ANTINEOPLASTIC CHEMO 07/04/2018 NIKITA DO JULITA Ot D64.9 ANEMIA, UNSPECIFIED 07/04/2018 SHELTON DO JULITA Ot E11.9 TYPE 2 DIABETES MELLITUS WITHOUT COMPLIC 07/04/2018 NIKITA AGUIRRE JULITA Ot E87.2 ACIDOSIS 07/04/2018 NIKITA AGUIRRE JULITA Ot I11.0 HYPERTENSIVE HEART DISEASE WITH HEART FA 07/04/2018 ROXI SHELTON DOI Ot I50.9 HEART FAILURE, UNSPECIFIED 07/04/2018 ROXI SHELTON DOI Ot J18.9 PNEUMONIA, UNSPECIFIED ORGANISM 07/04/2018 ROXI SHELTON DOI Ot J44.9 CHRONIC OBSTRUCTIVE PULMONARY DISEASE, U 07/04/2018 ROXI SHELTON DOI Ot K21.9 GASTRO-ESOPHAGEAL REFLUX DISEASE WITHOUT 07/04/2018 NIKITA AGUIRRE JULITA Ot K57.90 DVRTCLOS OF INTEST, PART UNSP, W/O PERF 07/04/2018 ROXI SHELTON DOI Ot M19.91 PRIMARY OSTEOARTHRITIS, UNSPECIFIED SITE 07/04/2018 ROXI SHELTON DOI Ot N17.9 ACUTE KIDNEY FAILURE, UNSPECIFIED 07/04/2018 ROXI SHELTON DOI Ot R09.02 HYPOXEMIA 07/04/2018 ROXI SHELTON DOI Ot Z85.43 PERSONAL HISTORY OF MALIGNANT NEOPLASM O 07/04/2018 ROXI SHELTON DOI Ot Z87.891 PERSONAL HISTORY OF NICOTINE DEPENDENCE 07/04/2018 ROXI SHELTON DOI Ot Z92.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 ANTINEOPLASTIC CHEMO 07/04/2018 ROXI SHELTON DOI Ot 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 07/04/2018 ROXI SHELTON DOI Ot D64.9 ANEMIA, UNSPECIFIED 07/04/2018 ROXI SHELTON DOI Ot E11.9 TYPE 2 DIABETES MELLITUS WITHOUT COMPLIC 07/04/2018 ROXI SHELTON DOI Ot E87.2 ACIDOSIS 07/04/2018 ROXI SHELTON DOI Ot I11.0 HYPERTENSIVE HEART DISEASE WITH HEART FA 07/04/2018 ROXI SHELTON DOI Ot I50.9 HEART FAILURE, UNSPECIFIED 07/04/2018 JULITA SHELTON DO Ot J18.9 PNEUMONIA, UNSPECIFIED ORGANISM 07/04/2018 ROXI SHELTON DOI Ot J44.9 CHRONIC OBSTRUCTIVE PULMONARY DISEASE, U 07/04/2018 ROXI SHELTON DOI Ot J98.11 ATELECTASIS 07/04/2018 ROXI SHELTON DOI Ot K21.9 GASTRO-ESOPHAGEAL REFLUX DISEASE WITHOUT 07/04/2018 NIKITA AGUIRRE JULITA Ot K57.90 DVRTCLOS OF INTEST, PART UNSP, W/O PERF 07/04/2018 SHELTONJULITA MORELOS DO Ot K64.9 UNSPECIFIED HEMORRHOIDS 07/04/2018 JULITA SHELTON DO Ot M19.91 PRIMARY OSTEOARTHRITIS, UNSPECIFIED SITE 07/04/2018 NIKITA AGUIRRE JULITA Ot N17.9 ACUTE KIDNEY FAILURE, UNSPECIFIED 07/04/2018 SHELTONJETHRO AGUIRRE JULITA Ot R09.02 HYPOXEMIA 07/04/2018 ROXI SHELTON DOI Ot R41.3 OTHER AMNESIA 07/04/2018 NIKITA AGUIRRE JULITA Ot R53.81 OTHER MALAISE 07/04/2018 NIKITA AGUIRRE JULITA Ot Z85.43 PERSONAL HISTORY OF MALIGNANT NEOPLASM O 07/04/2018 JULITA SHELTON DO Ot Z87.891 PERSONAL HISTORY OF NICOTINE DEPENDENCE 07/04/2018 NIKITA AGUIRRE JULITA Ot Z92.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 ANTINEOPLASTIC CHEMO 09/09/2018 AUTUMN LINN Ot 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 09/09/2018 AUTUMN LINN Ot 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 09/09/2018 AUTUMN LINN N Ot D50.9 IRON DEFICIENCY ANEMIA, UNSPECIFIED 09/09/2018 AUTUMN LINN Ot N18.3 CHRONIC KIDNEY DISEASE, STAGE 3 (MODERAT 09/09/2018 AUTUMN LINN Ot Z79.899 OTHER PROVIDER RELATIONS COORDINATOR (CURRENT) DRUG THERAPY 09/09/2018 AUTUMN LINN N Ot Z92.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 ANTINEOPLASTIC CHEMO 10/16/2018 AUTUMN LINN Ot 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 10/16/2018 AUTUMN LINN N Ot 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 10/16/2018 AUTUMN LINN N Ot D50.9 IRON DEFICIENCY ANEMIA, UNSPECIFIED 10/16/2018 AUTUMN LINN Ot N18.3 CHRONIC KIDNEY DISEASE, STAGE 3 (MODERAT 10/16/2018 AUTUMN LINN Ot Z79.899 OTHER PENITENTIARY (CURRENT) DRUG THERAPY 10/16/2018 AUTUMN LINN N Ot Z92.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 ANTINEOPLASTIC CHEMO 10/18/2018 AUTUMN LINN Ot 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 10/18/2018 AUTUMN LINN N Ot 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 10/18/2018 AUTUMN LINN N Ot D50.9 IRON DEFICIENCY ANEMIA, UNSPECIFIED 10/18/2018 AUTUMN LINN N Ot N18.3 CHRONIC KIDNEY DISEASE, STAGE 3 (MODERAT 10/18/2018 AUTUMN LINN N Ot Z79.899 OTHER PROVIDER RELATIONS COORDINATOR (CURRENT) DRUG THERAPY 10/18/2018 AUTUMN LINN N Ot Z92.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 ANTINEOPLASTIC CHEMO 11/01/2018 AUTUMN LINN N Ot 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 11/01/2018 KAVEHAUTUMN TURNER N Ot 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 11/01/2018 AUTUMN LINN N Ot D50.9 IRON DEFICIENCY ANEMIA, UNSPECIFIED 11/01/2018 AUTUMN LINN N Ot N18.3 CHRONIC KIDNEY DISEASE, STAGE 3 (MODERAT 11/01/2018 KAVEHAUTUMN TURNER N Ot Z79.899 OTHER PROVIDER RELATIONS COORDINATOR (CURRENT) DRUG THERAPY 11/01/2018 AUTUMN LINN N Ot Z92.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 ANTINEOPLASTIC CHEMO 11/02/2018 AUTUMN LINN N Ot 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 11/02/2018 AUTUMN LINN N Ot 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 11/02/2018 AUTUMN LINN N Ot D50.9 IRON DEFICIENCY ANEMIA, UNSPECIFIED 11/02/2018 AUTUMN LINN N Ot N18.3 CHRONIC KIDNEY DISEASE, STAGE 3 (MODERAT 11/02/2018 AUTUMN LINN N Ot Z79.899 OTHER PENITENTIARY (CURRENT) DRUG THERAPY 11/02/2018 AUTUMN LINN N Ot Z92.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 ANTINEOPLASTIC CHEMO 11/04/2018 SAMI PINZON, YO R Ot Z29.8 ENCOUNTER FOR OTHER SPECIFIED PROPHYLACT 11/14/2018 YO GALLARDO MD R Ot Z29.8 ENCOUNTER FOR OTHER SPECIFIED PROPHYLACT 12/02/2018 AUTUMN LINN N Ot 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 12/02/2018 AUTUMN LINN N Ot 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 12/02/2018 AUTUMN LINN N Ot D50.9 IRON DEFICIENCY ANEMIA, UNSPECIFIED 12/02/2018 AUTUMN LINN N Ot N18.3 CHRONIC KIDNEY DISEASE, STAGE 3 (MODERAT 12/02/2018 KAVEHAUTUMN TURNER N Ot Z45.2 ENCOUNTER FOR ADJUSTMENT AND MANAGEMENT 12/02/2018 AUTUMN LINN N Ot Z79.899 OTHER PENITENTIARY (CURRENT) DRUG THERAPY 12/02/2018 AUTUMN LINN N Ot Z92.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 ANTINEOPLASTIC CHEMO 12/03/2018 ALVARADOCHARLESMISSY Yamini 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 Ot 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 12/03/2018 CHARLES ALVARADOMISSY Yamini 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 Ot E86.0 DEHYDRATION 12/03/2018 DHARMESH ALVARADO 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 Ot K63.89 OTHER SPECIFIED DISEASES OF INTESTINE 12/03/2018 ALVARADODHARMESH 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 Ot N18.3 CHRONIC KIDNEY DISEASE, STAGE 3 (MODERAT 12/03/2018 ALVARADOCHARLESMISSY Yamini 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 Ot Z95.828 PRESENCE OF OTHER VASCULAR IMPLANTS AND 12/06/2018 AUTUMN LINN N Ot 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 12/06/2018 AUTUMN LINN N Ot 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 12/06/2018 AUTUMN LINN N Ot D50.9 IRON DEFICIENCY ANEMIA, UNSPECIFIED 12/06/2018 AUTUMN LINN N Ot N18.3 CHRONIC KIDNEY DISEASE, STAGE 3 (MODERAT 12/06/2018 KAVEHAUTUMN TURNER N Ot Z45.2 ENCOUNTER FOR ADJUSTMENT AND MANAGEMENT 12/06/2018 AUTUMN LINN N Ot Z79.899 OTHER PROVIDER RELATIONS COORDINATOR (CURRENT) DRUG THERAPY 12/06/2018 AUTUMN LINN N Ot Z92.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 ANTINEOPLASTIC CHEMO 12/07/2018 AUTUMN LINN N Ot 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 12/07/2018 KAVEHAUTUMN TURNER N Ot 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 12/07/2018 AUTUMN LINN N Ot D50.9 IRON DEFICIENCY ANEMIA, UNSPECIFIED 12/07/2018 AUTUMN LINN N Ot N18.3 CHRONIC KIDNEY DISEASE, STAGE 3 (MODERAT 12/07/2018 KAVEHAUTUMN TURNER N Ot Z45.2 ENCOUNTER FOR ADJUSTMENT AND MANAGEMENT 12/07/2018 AUTUMN LINN N Ot Z79.899 OTHER PROVIDER RELATIONS COORDINATOR (CURRENT) DRUG THERAPY 12/07/2018 AUTUMN LINN Ot Z92.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 ANTINEOPLASTIC CHEMO 12/08/2018 AUTUMN LINN Ot 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 12/08/2018 AUTUMN LINN Ot 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 12/08/2018 AUTUMN LINN Ot D50.9 IRON DEFICIENCY ANEMIA, UNSPECIFIED 12/08/2018 AUTUMN LINN Ot N18.3 CHRONIC KIDNEY DISEASE, STAGE 3 (MODERAT 12/08/2018 AUTUMN LINN Ot Z45.2 ENCOUNTER FOR ADJUSTMENT AND MANAGEMENT 12/08/2018 AUTUMN LINN Ot Z79.899 OTHER PENITENTIARY (CURRENT) DRUG THERAPY 12/08/2018 AUTUMN LINN Ot Z92.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 ANTINEOPLASTIC CHEMO 12/26/2018 DHARMESH ALVARADOP Ot 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 12/26/2018 DHARMESH ALVARADOP Ot E86.0 DEHYDRATION 12/26/2018 DHARMESH ALVARADOP Ot K63.89 OTHER SPECIFIED DISEASES OF INTESTINE 12/26/2018 DHARMESH ALVARADO 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 Ot N18.3 CHRONIC KIDNEY DISEASE, STAGE 3 (MODERAT 12/26/2018 DHARMESH ALVARADO Ot Z95.828 PRESENCE OF OTHER VASCULAR IMPLANTS AND Procedures Code Description Performed By Performed On 37.22 LEFT HEART CARDIAC CATH 05/12/2006 88.53 LT HEART ANGIOCARDIOGRAM 05/12/2006 88.56 CORONAR ARTERIOGR-2 CATH 05/12/2006 45.23 COLONOSCOPY 03/26/2008 58.6 URETHRAL DILATION 03/27/2008 70.21 VAGINOSCOPY 03/27/2008 34.04 INSERT INTERCOSTAL CATH 03/28/2008 34.84 OTHER DIAPHRAGM REPAIR 03/28/2008 38.93 VENOUS CATHETERIZATION NEC 03/28/2008 45.62 PART SM BOWEL RESECT NEC 03/28/2008 45.91 SM-TO-SM BOWEL ANASTOM 03/28/2008 48.69 RECTAL RESECTION NEC 03/28/2008 54.4 DESTRUCT PERITONEAL TISS 03/28/2008 65.61 OTH REMOVE BOTH OVARIES/ TUBES 03/28/2008 80.39 JOINT BIOPSY NEC 05/08/2015 Results Test Result Range Lipid 1996 panel - 08/05/16 09:50 Serum or plasma triglyceride measurement (mass/volume) [...] 04/17/16 09:50 Hemoglobin A1c 5.7 % 4.5-6.2 Influenza virus A and B antigen detection - 06/29/18 12:19 FLU RESULT NEGATIVE FOR INFLUENZA A AND B ANTIGENS BY [facility] Complete blood count (CBC) with automated white blood cell (WBC) differential - 06/29/18 12:43 Blood leukocytes automated count (number/volume) 16.6 10*3/uL 4.3-11.0 Blood erythrocytes automated count (number/volume) 4.14 10*6/uL 4.35-5.85 Venous blood hemoglobin measurement (mass/volume) 11.3 g/dL 11.5-16.0 Blood hematocrit (volume fraction) 33 % 35-52 Automated erythrocyte mean corpuscular volume 80 [foz_us] 80-99 Automated erythrocyte mean corpuscular hemoglobin (mass per erythrocyte) 27 pg 25-34 Automated erythrocyte mean corpuscular hemoglobin concentration measurement ( mass/volume) 34 g/dL 32-36 Automated erythrocyte distribution width ratio 17.9 % 10.0-14.5 Automated blood platelet count (count/volume) 308 10*3/uL 130-400 Automated blood platelet mean volume measurement 9.0 [foz_us] 7.4-10.4 Automated blood neutrophils/100 leukocytes 81 % 42-75 Automated blood lymphocytes/100 leukocytes 6 % 12-44 Blood monocytes/100 leukocytes 13 % 0-12 Automated blood eosinophils/100 leukocytes 0 % 0-10 Automated blood basophils/100 leukocytes 0 % 0-10 Blood neutrophils automated count (number/volume) 13.4 10*3 1.8-7.8 Blood lymphocytes automated count (number/volume) 1.0 10*3 1.0-4.0 Blood monocytes automated count (number/volume) 2.1 10*3 0.0-1.0 Automated eosinophil count 0.0 10*3/uL 0.0-0.3 Automated blood basophil count (count/volume) 0.0 10*3/uL 0.0-0.1 Serum heterophile antibody titer - 06/29/18 12:43 Serum heterophile antibody titer NEGATIVE NEGATIVE Blood lactic acid measurement (moles/volume) - 06/29/18 12:43 Blood lactic acid measurement (moles/volume) 1.12 mmol/L 0.50-2.00 Fibrin D-dimer FEU measurement in platelet poor plasma (mass/volume) - 12:43 Fibrin D-dimer FEU measurement in platelet poor plasma (mass/volume) 3.59 ug/mL 0.00-0.49 Comprehensive metabolic panel - 06/29/18 12:43 Serum or plasma sodium measurement (moles/volume) 130 mmol/L 135-145 Serum or plasma potassium measurement (moles/volume) 3.6 mmol/L 3.6-5.0 Serum or plasma chloride measurement (moles/volume) 95 mmol/L 98-107 Carbon dioxide 21 mmol/L 21-32 Serum or plasma anion gap determination (moles/volume) 14 mmol/L 5-14 Serum or plasma urea nitrogen measurement (mass/volume) 34 mg/dL 7-18 Serum or plasma creatinine measurement (mass/volume) 1.48 mg/dL 0.60-1.30 Serum or plasma urea nitrogen/creatinine mass ratio 23 NRG Serum or plasma creatinine measurement with calculation of estimated glomerular filtration rate 33 NRG Serum or plasma glucose measurement (mass/volume) 165 mg/dL 70-105 Serum or plasma calcium measurement (mass/volume) 10.0 mg/dL 8.5-10.1 Serum or plasma total bilirubin measurement (mass/volume) 0.7 mg/dL 0.1-1.0 Serum or plasma alkaline phosphatase measurement (enzymatic activity/volume) 83 U/L 40-136 Serum or plasma aspartate aminotransferase measurement (enzymatic activity/ volume) 19 U/L 5-34 Serum or plasma alanine aminotransferase measurement (enzymatic activity/volume ) 16 U/L 0-55 Serum or plasma protein measurement (mass/volume) 7.6 g/dL 6.4-8.2 Serum or plasma albumin measurement (mass/volume) 3.7 g/dL 3.2-4.5 CALCIUM CORRECTED 10.2 mg/dL 8.5-10.1 PT panel in platelet poor plasma by coagulation assay - 06/29/18 12:43 Prothrombin time (PT) in platelet poor plasma by coagulation assay 16.0 s 12.2-14.7 INR in platelet poor plasma or blood by coagulation assay 1.3 0.8-1.4 Activated partial thromboplastin time (aPTT) in platelet poor plasma bycoagulation assay - 06/29/18 12:43 Activated partial thromboplastin time (aPTT) in platelet poor plasma bycoagulation assay 35 s 24-35 Serum or plasma C reactive protein measurement (mass/volume) - 06/29/18 12:43 Serum or plasma C reactive protein measurement (mass/volume) 24.70 mg/dL 0.00-0.50 Blood manual differential performed detection - 06/29/18 12:43 Blood monocytes/100 leukocytes 8 % NRG Manual blood segmented neutrophils/100 leukocytes 80 % NRG Blood band neutrophils/100 leukocytes 2 % NRG Manual blood lymphocytes/100 leukocytes 8 % NRG Manual eosinophils/100 leukocytes in nose 0 % NRG Manual blood basophils/100 leukocytes 0 % NRG Blood lymphocytes variant/100 leukocytes 1 % NRG Blood anisocytosis detection by light microscopy SLIGHT NRG Blood ovalocytes detection by light microscopy SLIGHT NRG Blood toxic granules detection by light microscopy 2+ NRG Manual blood metamyelocytes/100 leukocytes 1 % NRG Blood poikilocytosis detection by light microscopy SLIGHT NRG Blood microcytes detection by light microscopy SLIGHT NRG Blood rouleaux detection by light microscopy MOD NRG Blood basophilic stippling detection by light microscopy SLIGHT NRG Bacterial blood culture - 06/29/18 12:43 Bacterial blood culture NG NRG Bacterial blood culture - 06/29/18 13:04 Bacterial blood culture NG NRG Complete blood count (CBC) with automated white blood cell (WBC) differential - 06/30/18 05:30 Blood leukocytes automated count (number/volume) 14.3 10*3/uL 4.3-11.0 Blood erythrocytes automated count (number/volume) 3.25 10*6/uL 4.35-5.85 Venous blood hemoglobin measurement (mass/volume) 8.8 g/dL 11.5-16.0 Blood hematocrit (volume fraction) 27 % 35-52 Automated erythrocyte mean corpuscular volume 83 [foz_us] 80-99 Automated erythrocyte mean corpuscular hemoglobin (mass per erythrocyte) 27 pg 25-34 Automated erythrocyte mean corpuscular hemoglobin concentration measurement ( mass/volume) 33 g/dL 32-36 Automated erythrocyte distribution width ratio 18.3 % 10.0-14.5 Automated blood platelet count (count/volume) 251 10*3/uL 130-400 Automated blood platelet mean volume measurement 9.2 [foz_us] 7.4-10.4 Automated blood neutrophils/100 leukocytes 82 % 42-75 Automated blood lymphocytes/100 leukocytes 7 % 12-44 Blood monocytes/100 leukocytes 11 % 0-12 Automated blood eosinophils/100 leukocytes 0 % 0-10 Automated blood basophils/100 leukocytes 0 % 0-10 Blood neutrophils automated count (number/volume) 11.7 10*3 1.8-7.8 Blood lymphocytes automated count (number/volume) 1.0 10*3 1.0-4.0 Blood monocytes automated count (number/volume) 1.6 10*3 0.0-1.0 Automated eosinophil count 0.0 10*3/uL 0.0-0.3 Automated blood basophil count (count/volume) 0.0 10*3/uL 0.0-0.1 Whole blood basic metabolic panel - 06/30/18 05:30 Serum or plasma sodium measurement (moles/volume) 135 mmol/L 135-145 Serum or plasma potassium measurement (moles/volume) 4.4 mmol/L 3.6-5.0 Serum or plasma chloride measurement (moles/volume) 107 mmol/L 98-107 Carbon dioxide 17 mmol/L 21-32 Serum or plasma anion gap determination (moles/volume) 11 mmol/L 5-14 Serum or plasma urea nitrogen measurement (mass/volume) 29 mg/dL 7-18 Serum or plasma creatinine measurement (mass/volume) 1.11 mg/dL 0.60-1.30 Serum or plasma urea nitrogen/creatinine mass ratio 26 NRG Serum or plasma creatinine measurement with calculation of estimated glomerular filtration rate 46 NRG Serum or plasma glucose measurement (mass/volume) 139 mg/dL 70-105 Serum or plasma calcium measurement (mass/volume) 8.1 mg/dL 8.5-10.1 Blood lactic acid measurement (moles/volume) - 06/30/18 13:20 Blood lactic acid measurement (moles/volume) 0.88 mmol/L 0.50-2.00 Arterial blood gas measurement - 06/30/18 13:31 Blood pCO2 31 mm[Hg] 35-45 Blood pO2 73 mm[Hg] 79-93 Arterial blood bicarbonate measurement (moles/volume) 19 mmol/L 23-27 Arterial blood base excess by calculation -5.5 mmol/L - 2.5-2.5 Arterial blood oxygen saturation measurement 96 % 94-100 * Inhaled oxygen flow rate RM AIR NRG Arterial blood pH measurement with patient temperature correction 7.39 7.37-7.43 Arterial blood carbon dioxide, total measurement (moles/volume) 19.5 mmol/L 21.0-31.0 Body site R RAD NRG Assessment of wrist artery patency prior to arterial puncture YES- POS NRG Setting of ventilation mode NO NRG Measurement of body temperature 98.4 NRG Complete blood count (CBC) with automated white blood cell (WBC) differential - 07/01/18 04:30 Blood leukocytes automated count (number/volume) 14.3 10*3/uL 4.3-11.0 Blood erythrocytes automated count (number/volume) 3.51 10*6/uL 4.35-5.85 Venous blood hemoglobin measurement (mass/volume) 9.6 g/dL 11.5-16.0 Blood hematocrit (volume fraction) 29 % 35-52 Automated erythrocyte mean corpuscular volume 83 [foz_us] 80-99 Automated erythrocyte mean corpuscular hemoglobin (mass per erythrocyte) 27 pg 25-34 Automated erythrocyte mean corpuscular hemoglobin concentration measurement ( mass/volume) 33 g/dL 32-36 Automated erythrocyte distribution width ratio 18.5 % 10.0-14.5 Automated blood platelet count (count/volume) 287 10*3/uL 130-400 Automated blood platelet mean volume measurement 9.3 [foz_us] 7.4-10.4 Automated blood neutrophils/100 leukocytes 84 % 42-75 Automated blood lymphocytes/100 leukocytes 6 % 12-44 Blood monocytes/100 leukocytes 10 % 0-12 Automated blood eosinophils/100 leukocytes 0 % 0-10 Automated blood basophils/100 leukocytes 0 % 0-10 Blood neutrophils automated count (number/volume) 12.0 10*3 1.8-7.8 Blood lymphocytes automated count (number/volume) 0.8 10*3 1.0-4.0 Blood monocytes automated count (number/volume) 1.4 10*3 0.0-1.0 Automated eosinophil count 0.1 10*3/uL 0.0-0.3 Automated blood basophil count (count/volume) 0.0 10*3/uL 0.0-0.1 Comprehensive metabolic panel - 07/01/18 04:30 Serum or plasma sodium measurement (moles/volume) 134 mmol/L 135-145 Serum or plasma potassium measurement (moles/volume) 4.3 mmol/L 3.6-5.0 Serum or plasma chloride measurement (moles/volume) 110 mmol/L 98-107 Carbon dioxide 13 mmol/L 21-32 Serum or plasma anion gap determination (moles/volume) 11 mmol/L 5-14 Serum or plasma urea nitrogen measurement (mass/volume) 20 mg/dL 7-18 Serum or plasma creatinine measurement (mass/volume) 1.06 mg/dL 0.60-1.30 Serum or plasma urea nitrogen/creatinine mass ratio 19 NRG Serum or plasma creatinine measurement with calculation of estimated glomerular filtration rate 49 NRG Serum or plasma glucose measurement (mass/volume) 108 mg/dL 70-105 Serum or plasma calcium measurement (mass/volume) 8.7 mg/dL 8.5-10.1 Serum or plasma total bilirubin measurement (mass/volume) 0.3 mg/dL 0.1-1.0 Serum or plasma alkaline phosphatase measurement (enzymatic activity/volume) 78 U/L 40-136 Serum or plasma aspartate aminotransferase measurement (enzymatic activity/ volume) 28 U/L 5-34 Serum or plasma alanine aminotransferase measurement (enzymatic activity/volume ) 18 U/L 0-55 Serum or plasma protein measurement (mass/volume) 6.1 g/dL 6.4-8.2 Serum or plasma albumin measurement (mass/volume) 3.0 g/dL 3.2-4.5 CALCIUM CORRECTED 9.5 mg/dL 8.5-10.1 Stool occult blood screen - 07/01/18 12:00 Stool gastrointestinal hemoglobin detection POSITIVE NEGATIVE Complete urinalysis with reflex to culture - 07/01/18 15:49 Urine color determination YELLOW NRG Urine clarity determination CLEAR NRG Urine pH measurement by test strip 5 5-9 Specific gravity of urine by test strip 1.010 1.016- 1.022 Urine protein assay by test strip, semi-quantitative 2+ NEGATIVE Urine glucose detection by automated test strip NEGATIVE NEGATIVE Erythrocytes detection in urine sediment by light microscopy 1+ NEGATIVE Urine ketones detection by automated test strip 1+ NEGATIVE Urine nitrite detection by test strip NEGATIVE NEGATIVE Urine total bilirubin detection by test strip NEGATIVE NEGATIVE Urine urobilinogen measurement by automated test strip (mass/volume) NORMAL NORMAL Urine leukocyte esterase detection by dipstick 1+ NEGATIVE Automated urine sediment erythrocyte count by microscopy (number/high power field) [HPF] NRG Automated urine sediment leukocyte count by microscopy (number/high power field ) [HPF] NRG Bacteria detection in urine sediment by light microscopy FEW NRG Crystals detection in urine sediment by light microscopy NONE NRG Casts detection in urine sediment by light microscopy NONE NRG Mucus detection in urine sediment by light microscopy NEGATIVE NRG Complete urinalysis with reflex to culture YES NRG Bacterial urine culture - 07/01/18 15:49 Bacterial urine culture NG NRG Complete blood count (CBC) with automated white blood cell (WBC) differential - 07/02/18 06:40 Blood leukocytes automated count (number/volume) 8.6 10*3/uL 4.3-11.0 Blood erythrocytes automated count (number/volume) 3.29 10*6/uL 4.35-5.85 Venous blood hemoglobin measurement (mass/volume) 8.7 g/dL 11.5-16.0 Blood hematocrit (volume fraction) 27 % 35-52 Automated erythrocyte mean corpuscular volume 82 [foz_us] 80-99 Automated erythrocyte mean corpuscular hemoglobin (mass per erythrocyte) 26 pg 25-34 Automated erythrocyte mean corpuscular hemoglobin concentration measurement ( mass/volume) 32 g/dL 32-36 Automated erythrocyte distribution width ratio 18.8 % 10.0-14.5 Automated blood platelet count (count/volume) 307 10*3/uL 130-400 Automated blood platelet mean volume measurement 8.8 [foz_us] 7.4-10.4 Automated blood neutrophils/100 leukocytes 76 % 42-75 Automated blood lymphocytes/100 leukocytes 12 % 12-44 Blood monocytes/100 leukocytes 9 % 0-12 Automated blood eosinophils/100 leukocytes 2 % 0-10 Automated blood basophils/100 leukocytes 0 % 0-10 Blood neutrophils automated count (number/volume) 6.5 10*3 1.8-7.8 Blood lymphocytes automated count (number/volume) 1.1 10*3 1.0-4.0 Blood monocytes automated count (number/volume) 0.8 10*3 0.0-1.0 Automated eosinophil count 0.2 10*3/uL 0.0-0.3 Automated blood basophil count (count/volume) 0.0 10*3/uL 0.0-0.1 Comprehensive metabolic panel - 07/02/18 06:40 Serum or plasma sodium measurement (moles/volume) 137 mmol/L 135-145 Serum or plasma potassium measurement (moles/volume) 4.0 mmol/L 3.6-5.0 Serum or plasma chloride measurement (moles/volume) 108 mmol/L 98-107 Carbon dioxide 20 mmol/L 21-32 Serum or plasma anion gap determination (moles/volume) 9 mmol/L 5-14 Serum or plasma urea nitrogen measurement (mass/volume) 12 mg/dL 7-18 Serum or plasma creatinine measurement (mass/volume) 0.79 mg/dL 0.60-1.30 Serum or plasma urea nitrogen/creatinine mass ratio 15 NRG Serum or plasma creatinine measurement with calculation of estimated glomerular filtration rate > NRG Serum or plasma glucose measurement (mass/volume) 93 mg/dL 70-105 Serum or plasma calcium measurement (mass/volume) 8.4 mg/dL 8.5-10.1 Serum or plasma total bilirubin measurement (mass/volume) 0.3 mg/dL 0.1-1.0 Serum or plasma alkaline phosphatase measurement (enzymatic activity/volume) 63 U/L 40-136 Serum or plasma aspartate aminotransferase measurement (enzymatic activity/ volume) 26 U/L 5-34 Serum or plasma alanine aminotransferase measurement (enzymatic activity/volume ) 16 U/L 0-55 Serum or plasma protein measurement (mass/volume) 5.7 g/dL 6.4-8.2 Serum or plasma albumin measurement (mass/volume) 2.6 g/dL 3.2-4.5 CALCIUM CORRECTED 9.5 mg/dL 8.5-10.1 Complete blood count (CBC) with automated white blood cell (WBC) differential - 07/03/18 03:00 Blood leukocytes automated count (number/volume) 6.9 10*3/uL 4.3-11.0 Blood erythrocytes automated count (number/volume) 3.23 10*6/uL 4.35-5.85 Venous blood hemoglobin measurement (mass/volume) 8.7 g/dL 11.5-16.0 Blood hematocrit (volume fraction) 27 % 35-52 Automated erythrocyte mean corpuscular volume 82 [foz_us] 80-99 Automated erythrocyte mean corpuscular hemoglobin (mass per erythrocyte) 27 pg 25-34 Automated erythrocyte mean corpuscular hemoglobin concentration measurement ( mass/volume) 33 g/dL 32-36 Automated erythrocyte distribution width ratio 18.8 % 10.0-14.5 Automated blood platelet count (count/volume) 289 10*3/uL 130-400 Automated blood platelet mean volume measurement 8.5 [foz_us] 7.4-10.4 Automated blood neutrophils/100 leukocytes 70 % 42-75 Automated blood lymphocytes/100 leukocytes 16 % 12-44 Blood monocytes/100 leukocytes 11 % 0-12 Automated blood eosinophils/100 leukocytes 3 % 0-10 Automated blood basophils/100 leukocytes 0 % 0-10 Blood neutrophils automated count (number/volume) 4.8 10*3 1.8-7.8 Blood lymphocytes automated count (number/volume) 1.1 10*3 1.0-4.0 Blood monocytes automated count (number/volume) 0.8 10*3 0.0-1.0 Automated eosinophil count 0.2 10*3/uL 0.0-0.3 Automated blood basophil count (count/volume) 0.0 10*3/uL 0.0-0.1 Comprehensive metabolic panel - 07/03/18 03:00 Serum or plasma sodium measurement (moles/volume) 137 mmol/L 135-145 Serum or plasma potassium measurement (moles/volume) 3.7 mmol/L 3.6-5.0 Serum or plasma chloride measurement (moles/volume) 106 mmol/L 98-107 Carbon dioxide 21 mmol/L 21-32 Serum or plasma anion gap determination (moles/volume) 10 mmol/L 5-14 Serum or plasma urea nitrogen measurement (mass/volume) 8 mg/dL 7-18 Serum or plasma creatinine measurement (mass/volume) 0.75 mg/dL 0.60-1.30 Serum or plasma urea nitrogen/creatinine mass ratio 11 NRG Serum or plasma creatinine measurement with calculation of estimated glomerular filtration rate > NRG Serum or plasma glucose measurement (mass/volume) 93 mg/dL 70-105 Serum or plasma calcium measurement (mass/volume) 8.5 mg/dL 8.5-10.1 Serum or plasma total bilirubin measurement (mass/volume) 0.3 mg/dL 0.1-1.0 Serum or plasma alkaline phosphatase measurement (enzymatic activity/volume) 59 U/L 40-136 Serum or plasma aspartate aminotransferase measurement (enzymatic activity/ volume) 25 U/L 5-34 Serum or plasma alanine aminotransferase measurement (enzymatic activity/volume ) 17 U/L 0-55 Serum or plasma protein measurement (mass/volume) 5.2 g/dL 6.4-8.2 Serum or plasma albumin measurement (mass/volume) 2.5 g/dL 3.2-4.5 CALCIUM CORRECTED 9.7 mg/dL 8.5-10.1 Complete blood count (CBC) with automated white blood cell (WBC) differential - 07/04/18 05:35 Blood leukocytes automated count (number/volume) 6.8 10*3/uL 4.3-11.0 Blood erythrocytes automated count (number/volume) 3.64 10*6/uL 4.35-5.85 Venous blood hemoglobin measurement (mass/volume) 9.8 g/dL 11.5-16.0 Blood hematocrit (volume fraction) 30 % 35-52 Automated erythrocyte mean corpuscular volume 82 [foz_us] 80-99 Automated erythrocyte mean corpuscular hemoglobin (mass per erythrocyte) 27 pg 25-34 Automated erythrocyte mean corpuscular hemoglobin concentration measurement ( mass/volume) 33 g/dL 32-36 Automated erythrocyte distribution width ratio 18.9 % 10.0-14.5 Automated blood platelet count (count/volume) 346 10*3/uL 130-400 Automated blood platelet mean volume measurement 8.6 [foz_us] 7.4-10.4 Automated blood neutrophils/100 leukocytes 67 % 42-75 Automated blood lymphocytes/100 leukocytes 18 % 12-44 Blood monocytes/100 leukocytes 13 % 0-12 Automated blood eosinophils/100 leukocytes 2 % 0-10 Automated blood basophils/100 leukocytes 0 % 0-10 Blood neutrophils automated count (number/volume) 4.6 10*3 1.8-7.8 Blood lymphocytes automated count (number/volume) 1.2 10*3 1.0-4.0 Blood monocytes automated count (number/volume) 0.9 10*3 0.0-1.0 Automated eosinophil count 0.1 10*3/uL 0.0-0.3 Automated blood basophil count (count/volume) 0.0 10*3/uL 0.0-0.1 Comprehensive metabolic panel - 07/04/18 05:35 Serum or plasma sodium measurement (moles/volume) 137 mmol/L 135-145 Serum or plasma potassium measurement (moles/volume) 3.3 mmol/L 3.6-5.0 Serum or plasma chloride measurement (moles/volume) 103 mmol/L 98-107 Carbon dioxide 22 mmol/L 21-32 Serum or plasma anion gap determination (moles/volume) 12 mmol/L 5-14 Serum or plasma urea nitrogen measurement (mass/volume) 8 mg/dL 7-18 Serum or plasma creatinine measurement (mass/volume) 0.76 mg/dL 0.60-1.30 Serum or plasma urea nitrogen/creatinine mass ratio 11 NRG Serum or plasma creatinine measurement with calculation of estimated glomerular filtration rate > NRG Serum or plasma glucose measurement (mass/volume) 119 mg/dL 70-105 Serum or plasma calcium measurement (mass/volume) 8.8 mg/dL 8.5-10.1 Serum or plasma total bilirubin measurement (mass/volume) 0.3 mg/dL 0.1-1.0 Serum or plasma alkaline phosphatase measurement (enzymatic activity/volume) 65 U/L 40-136 Serum or plasma aspartate aminotransferase measurement (enzymatic activity/ volume) 26 U/L 5-34 Serum or plasma alanine aminotransferase measurement (enzymatic activity/volume ) 20 U/L 0-55 Serum or plasma protein measurement (mass/volume) 6.2 g/dL 6.4-8.2 Serum or plasma albumin measurement (mass/volume) 2.9 g/dL 3.2-4.5 CALCIUM CORRECTED 9.7 mg/dL 8.5-10.1 Complete blood count (CBC) with automated white blood cell (WBC) differential - 12/15/18 12:55 Blood leukocytes automated count (number/volume) 6.7 10*3/uL 4.3-11.0 Blood erythrocytes automated count (number/volume) 3.67 10*6/uL 4.35-5.85 Venous blood hemoglobin measurement (mass/volume) 9.9 g/dL 11.5-16.0 Blood hematocrit (volume fraction) 32 % 35-52 Automated erythrocyte mean corpuscular volume 86 [foz_us] 80-99 Automated erythrocyte mean corpuscular hemoglobin (mass per erythrocyte) 27 pg 25-34 Automated erythrocyte mean corpuscular hemoglobin concentration measurement ( mass/volume) 31 g/dL 32-36 Automated erythrocyte distribution width ratio 14.2 % 10.0-14.5 Automated blood platelet count (count/volume) 322 10*3/uL 130-400 Automated blood platelet mean volume measurement 9.3 [foz_us] 7.4-10.4 Automated blood neutrophils/100 leukocytes 92 % 42-75 Automated blood lymphocytes/100 leukocytes 7 % 12-44 Blood monocytes/100 leukocytes 1 % 0-12 Automated blood eosinophils/100 leukocytes 0 % 0-10 Automated blood basophils/100 leukocytes 0 % 0-10 Blood neutrophils automated count (number/volume) 6.1 10*3 1.8-7.8 Blood lymphocytes automated count (number/volume) 0.5 10*3 1.0-4.0 Blood monocytes automated count (number/volume) 0.0 10*3 0.0-1.0 Automated eosinophil count 0.0 10*3/uL 0.0-0.3 Automated blood basophil count (count/volume) 0.0 10*3/uL 0.0-0.1 Whole blood basic metabolic panel - 12/15/18 12:55 Serum or plasma sodium measurement (moles/volume) 133 mmol/L 135-145 Serum or plasma potassium measurement (moles/volume) 4.5 mmol/L 3.6-5.0 Serum or plasma chloride measurement (moles/volume) 101 mmol/L 98-107 Carbon dioxide 22 mmol/L 21-32 Serum or plasma anion gap determination (moles/volume) 10 mmol/L 5-14 Serum or plasma urea nitrogen measurement (mass/volume) 33 mg/dL 7-18 Serum or plasma creatinine measurement (mass/volume) 1.25 mg/dL 0.60-1.30 Serum or plasma urea nitrogen/creatinine mass ratio 26 NRG Serum or plasma creatinine measurement with calculation of estimated glomerular filtration rate 40 NRG Serum or plasma glucose measurement (mass/volume) 230 mg/dL 70-105 Serum or plasma calcium measurement (mass/volume) 9.4 mg/dL 8.5-10.1 Encounters ACCT No. Visit Date/Time Discharge Status Pt. Type Provider Facility Loc./Unit Complaint [id number] 12/01/2018 12:22:00 12/01/2018 23:59:59 CLS Outpatient ALVARADO, HILAH S 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 [facility] RAD OVARIAN CA [id number] 11/05/2018 00:21:00 11/05/2018 23:59:59 CLS Preadmit SAMI PINZON, YO Mitchell [facility] CR3 WELLNESS [id number] 10/17/2018 13:22:00 11/04/2018 00:01:00 DIS Outpatient SAMI PINZON, YO Mitchell [facility] CR3 WELLNESS [id number] 08/29/2018 09:58:00 10/16/2018 00:01:00 DIS Outpatient AUTUMN LINN [facility] ONC [place] [id number] 06/29/2018 14:24:00 07/04/2018 13:00:00 DIS Inpatient NIKITA AGUIRRE JULITA [facility] 4TH PNA,ARF,HYPOXIA;POSS PE [id number] 06/03/2018 14:15:00 06/12/2018 00:01:00 DIS Outpatient AUTUMN LINN [facility] ONC [place] [facility] [id number] 06/03/2018 11:58:00 06/03/2018 23:59:59 CLS Outpatient MIQUEL STRATTON MD [facility] CARD HX OVARIAN CANCER, ANEMIA [id number] 05/18/2018 15:44:00 05/22/2018 00:01:00 DIS Outpatient AUTUMN LINN [facility] ONC [place] [facility] [id number] 01/10/2018 12:21:00 01/13/2018 00:01:00 DIS Outpatient AUTUMN LINN [facility] ONC [place] [facility] [id number] 11/17/2017 12:25:00 11/17/2017 23:59:59 CLS Outpatient JOJO INIGUEZ [facility] CARD I25.10 CAD [id number] 11/16/2017 07:06:00 11/16/2017 23:59:59 CLS Outpatient JOJO INIGUEZ [facility] CARD I25.10 CAD [id number] 11/11/2017 14:36:00 11/11/2017 23:59:59 CLS Preadmit DAYOFLORENTIN JOJOHER Jayda MAYNARD [facility] CARD I25.10 CAD [id number] 11/03/2017 09:44:00 11/03/2017 12:58:00 DIS Outpatient MIQUEL STRATTON MD [facility] ENDO ANEMIA [id number] 11/01/2017 05:48:00 11/01/2017 10:33:00 DIS Outpatient MIQUEL STRATTON MD [facility] PREOP COLONOSCOPY/EGD [id number] 09/02/2017 11:07:00 09/15/2017 00:01:00 DIS Outpatient AUTUMN LINN [facility] ONC [place] [facility] [id number] 06/10/2017 10:55:00 06/12/2017 00:01:00 DIS Outpatient AUTUMN LINN [facility] ONC [place] [facility] [id number] 02/04/2017 12:51:00 02/21/2017 00:01:00 DIS Outpatient AUTUMN LINN [facility] ONC [place] [facility] [id number] 10/05/2016 11:52:00 10/13/2016 00:01:00 DIS Outpatient AUTUMN LINN [facility] ONC [place] [facility] [id number] 05/29/2016 12:10:00 06/22/2016 10:21:00 DIS Outpatient AUTUMN LINN [facility] ONC [place] [facility] [id number] 04/23/2016 12:59:00 04/23/2016 23:59:59 CLS Outpatient DHARMESH ALVARADOP [facility] ONC [id number] 04/17/2016 09:32:00 04/17/2016 23:59:59 CLS Outpatient YO GALLARDO MD [facility] LAB [id number] 03/05/2016 10:38:00 03/10/2016 00:01:00 DIS Outpatient AUTUMN LINN [facility] ONC [place] [facility] [id number] 10/24/2015 13:37:00 10/30/2015 00:01:00 DIS Outpatient AUTUMN LINN [facility] ONC [place] [facility] [id number] 10/25/2015 09:43:00 10/25/2015 23:59:59 CLS Outpatient DAYOFLORENTIN JOJO Jayda 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 [facility] LAB [id number] 10/24/2015 13:40:00 10/24/2015 23:59:59 CLS Outpatient DHARMESH ALVARADO 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 [facility] ONC [id number] 09/12/2015 00:15:00 09/12/2015 23:59:59 CLS Preadmit YO GALLARDO MD [facility] OSTEOMYELITIS [id number] 06/26/2015 09:59:00 09/11/2015 00:01:00 DIS Outpatient YO GALLARDO MD [facility] OSTEOMYELITIS [id number] 07/10/2015 13:16:00 07/10/2015 23:59:59 CLS Outpatient ZO HOUSTON DO [facility] RT DYSPNEA [id number] 07/01/2015 10:39:00 07/01/2015 23:59:59 CLS Outpatient DHARMESH ALVARADO [facility] ONC [id number] 06/24/2015 13:19:00 06/24/2015 23:59:59 CLS Outpatient JESSICA ARREDONDO MD [facility] RAD LUMBAGO [id number] 06/15/2015 16:03:00 06/17/2015 14:30:00 DIS Inpatient YO GALLARDO MD [facility] 4TH DYSPNEA,CHEST WALL PAIN [id number] 06/12/2015 10:05:00 06/12/2015 00:01:00 DIS Outpatient YO GALLARDO MD [facility] OSTEOMYELITIS [id number] 06/03/2015 10:38:00 06/12/2015 00:01:00 DIS Outpatient AUTUMN LINN [facility] ONC [place] [facility] [id number] 05/10/2015 11:00:00 05/14/2015 14:52:00 DIS Inpatient YO GALLARDO MD [facility] 4TH INTERACTABLE LBP,CA [id number] 04/27/2015 12:58:00 04/27/2015 15:53:00 DIS Emergency GREERMECHELLE APRN [facility] ER BACK PAIN [id number] 04/16/2015 10:47:00 04/16/2015 23:59:59 CLS Outpatient DHARMESH ALVARADO 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 [facility] ONC [id number] 03/26/2015 08:45:00 03/31/2015 00:01:00 DIS Outpatient AUTUMN LINN [facility] ONC [place] [facility] [id number] 02/21/2015 10:34:00 02/21/2015 23:59:59 CLS Outpatient YO GALLARDO MD [facility] LAB [id number] 02/12/2015 09:46:00 02/12/2015 23:59:59 CLS Outpatient DHARMESH ALVARADO 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 [facility] ONC [id number] 02/07/2015 06:00:00 02/07/2015 13:05:00 DIS Outpatient MIQUEL STRATTON MD [facility] SDC UMBILICAL MASS; HISTORY OF OVARIAN CANCER [id number] 02/06/2015 13:19:00 02/06/2015 23:59:59 CLS Outpatient MIQUEL STRATTON MD [facility] PREOP UMBILICAL MASS; HISTORY OF OVARIAN CANCER [id number] 01/07/2015 07:20:00 01/07/2015 23:59:59 CLS Outpatient GARDENIA KESSLER DO [facility] RAD ABDOMINAL WALL MASS [id number] 10/08/2014 12:52:00 10/08/2014 23:59:59 CLS Outpatient AUTUMN LINN [facility] ONC [place] [facility] [id number] 07/16/2014 11:11:00 07/18/2014 00:01:00 DIS Outpatient AUTUMN LINN [facility] ONC [place] [facility] [id number] 07/16/2014 11:13:00 07/16/2014 23:59:59 CLS Outpatient MICHEL PRINGLE MD, FACC FACP CCDS [facility] LAB [id number] 06/14/2014 13:55:00 06/14/2014 23:59:59 CLS Outpatient DHARMESH ALVARADO 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 [facility] ONC [id number] 03/08/2014 11:16:00 03/13/2014 00:01:00 DIS Outpatient AUTUMN LINN [facility] ONC [place] [facility] [id number] 01/25/2014 09:57:00 01/25/2014 23:59:59 CLS Outpatient YARY PINZON FACC, MICHEL FACP CCDS [facility] LAB [id number] 12/13/2013 10:51:00 12/13/2013 23:59:59 CLS Outpatient MICHEL PRINGLE MD, FACC FACP CCDS [facility] LAB [id number] 11/01/2013 13:29:00 11/06/2013 00:01:00 DIS Outpatient AUTUMN LINN [facility] ONC [place] [facility] [id number] 09/27/2013 10:06:00 09/27/2013 23:59:59 CLS Outpatient YO GALLARDO MD [facility] LAB [id number] 09/27/2013 10:01:00 09/27/2013 23:59:59 CLS Outpatient JOJO INIGUEZ 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 [facility] LAB [id number] 06/27/2013 09:44:00 07/19/2013 00:01:00 DIS Outpatient AUTUMN LINN [facility] ONC [place] [facility] [id number] 06/29/2013 14:19:00 06/29/2013 23:59:59 CLS Outpatient DHARMESH ALVARADO 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 [facility] ONC [id number] 06/27/2013 09:58:00 06/27/2013 23:59:59 CLS Outpatient YARY PINZON FACC, ALI FACP CCDS [facility] LAB [id number] 04/04/2013 22:27:00 04/05/2013 00:49:00 DIS Emergency MECHELLE GREER APRN [facility] ER ALLERGIC REACTION [id number] 03/13/2013 08:39:00 03/15/2013 00:01:00 DIS Outpatient KAVEHAUTUMN TURNER Bishop [facility] ONC [place] [facility] [id number] 03/13/2013 08:44:00 03/13/2013 23:59:59 CLS Outpatient YARY PINZON FACC, MICHEL ESPINOZA CCDS [facility] LAB [id number] 03/13/2013 08:42:00 03/13/2013 23:59:59 CLS Outpatient [id number] 03/08/2013 20:55:00 03/09/2013 00:25:00 DIS Emergency TIMI PINZON, CARMELLA Dumas [facility] ER SWOLLEN TONGUE [id number] 01/15/2013 13:05:00 01/15/2013 15:22:00 DIS Emergency SUZANNA RUDI AGUIRRE K [facility] ER THROAT CLOSED [id number] 01/05/2019 15:45:00 ACT Inpatient AUTUMN LINN Bsihop [facility] ICU CHEMO DRUG REACTION [id number] 01/05/2019 12:51:00 ACT Outpatient AUTUMN LINN Bishop [facility] ONC [place] [facility] [id number] 12/28/2017 05:29:00 Document Registration [id number] 12/28/2017 05:28:00 Document Registration [id number] 12/28/2017 05:28:00 Document Registration [id number] 12/28/2017 05:28:00 Document Registration [id number] 01/07/2015 07:36:00 Document Registration [id number] 12/15/2012 09:22:00 Document Registration [id number] 12/01/2012 11:41:00 Document Registration [id number] 06/16/2012 13:52:00 Document Registration [id number] 06/09/2012 09:37:00 Document Registration [id number] 06/09/2012 09:35:00 Document Registration [id number] 05/13/2011 09:34:00 Document Registration [id number] 07/28/2010 09:29:00 Document Registration [id number] 06/18/2010 10:39:00 Document Registration [id number] 06/18/2010 10:33:00 Document Registration [id number] 03/27/2010 08:58:00 Document Registration [id number] 08/05/2009 11:14:00 Document Registration [id number] 07/01/2009 10:06:00 Document Registration [id number] 06/18/2009 09:02:00 Document Registration [id number] 04/11/2009 12:35:00 Document Registration [id number] 03/21/2009 09:44:00 Document Registration [id number] 12/06/2008 12:12:00 Document Registration [id number] 11/15/2008 10:22:00 Document Registration [id number] 09/03/2008 13:13:00 Document Registration [id number] 08/27/2008 13:13:00 Document Registration [id number] 08/20/2008 14:13:00 Document Registration [id number] 08/13/2008 13:20:00 Document Registration [id number] 08/06/2008 11:03:00 Document Registration [id number] 07/30/2008 13:59:00 Document Registration [id number] 07/03/2008 13:45:00 Document Registration [id number] 06/26/2008 13:26:00 Document Registration [id number] 06/19/2008 13:11:00 Document Registration [id number] 06/12/2008 13:39:00 Document Registration [id number] 06/05/2008 13:20:00 Document Registration [id number] 05/04/2008 08:23:00 Document Registration [id number] 03/26/2008 05:40:00 Document Registration [id number] 03/21/2008 08:26:00 Document Registration [id number] 11/29/2007 09:03:00 Document Registration [id number] 07/22/2007 09:07:00 Document Registration [id number] 02/14/2007 09:30:00 Document Registration [id number] 01/06/2007 07:54:00 Document Registration [id number] 12/03/2006 10:30:00 Document Registration [id number] 06/16/2006 09:24:00 Document Registration [id number] 05/21/2006 08:30:00 Document Registration [id number] 05/11/2006 12:54:00 Document Registration [id number] 11/02/2005 10:17:00 Document Registration [id number] 10/29/2005 11:04:00 Document Registration
[2019-01-05] MEDS ORDERED: POLYETHYLENE GLYCOL 17 GM (MIRALAX) PACK PO PRN (16:30)
--- NOTE | 2019-01-05 19:32 | HISTORY AND PHYSICAL ---
DATE OF SERVICE: 01/05/2019 ADMISSION HISTORY AND PHYSICAL The patient is admitted to ICU bed 8 to observation status. BRIEF HISTORY: The patient is an 88-year-old female with a history of recurrent ovarian cancer and was started on palliative chemotherapy with weekly carboplatin and paclitaxel regimen a month ago. She completed 3 weeks of chemotherapy with one week break and had tolerated the treatments well. She was started on course 2 day 1 chemotherapy today. The patient developed increasing shortness of breath while receiving carboplatin today. The infusion was discontinued immediately and the patient was treated with 25 mg of Benadryl and 125 mg of Solu-Medrol IV. She continued to have worsening shortness of breath with wheezing and decreased oxygen saturation. As her condition was worsening, it was decided to admit her to ICU for further management under observation status. She was given an albuterol breathing treatment as well as high flow oxygen and over the next 30 to 45 minutes, improved her overall condition. We will maintain her on observation status overnight in ICU and we will discharge her tomorrow if she continues to be stable. PAST MEDICAL HISTORY: Is significant for high-grade ovarian cancer, serous papillary type, diagnosed in 2007, which was stage III disease. She underwent bilateral salpingo-oophorectomy, sigmoid colon resection, segmental small bowel resection and omentectomy with a remote history of hysterectomy. She was treated with adjuvant chemotherapy using carboplatin and paclitaxel regimen for 6 cycles, just completed in late 2007. She was diagnosed with recurrent disease with an abdominal wall mass by mid 2014. She underwent chemotherapy with weekly carboplatin and paclitaxel regimen for 2 cycles and the treatments had to be stopped due to development of diskitis requiring prolonged antibiotic therapy. She was again noted to have recurrent disease in early 2018 and restarted on chemotherapy a month ago. OTHER SIGNIFICANT MEDICAL HISTORY: Includes hypertension, hypercholesterolemia, diabetes mellitus type 2, coronary artery disease requiring stent placement, carotid artery disease and peripheral arterial disease. She also has chronic kidney disease stage III. FAMILY HISTORY: Is significant for coronary artery disease in her siblings and mother, hypertension in her brother and mother. No significant malignancies in the family. PHYSICAL EXAMINATION: GENERAL: Showed an elderly female, awake and oriented and resting in bed, weak appearing, in no acute distress. VITAL SIGNS: She is afebrile with a pulse rate of 91, respiratory rate 22 and blood pressure 118/69 with oxygen saturation of 100% on 2 liters of oxygen by nasal cannula. Previously; however, oxygen saturation had dropped into the 60s on oxygen at 15 liters by nonrebreather mask while at the Cancer Center along with tachycardia and elevated blood pressure. HEENT: Normocephalic with thinning hair, extraocular muscles intact, conjunctivae pink, oral mucosa is slightly dry. NECK: Supple with no JVD. No cervical, supraclavicular or axillary lymphadenopathy palpable. CHEST: Symmetrical with a port present. LUNGS: With slightly diminished breath sounds without wheezes or rales. CARDIOVASCULAR: Regular in rate and rhythm. No murmurs or gallops heard. ABDOMEN: Slightly obese, soft, nontender with no hepatosplenomegaly or other masses palpable. EXTREMITIES: Showed no edema. NEUROLOGIC: Showed no focal motor deficits. LABORATORY DATA: CBC done earlier today showed white count of 4.7, hemoglobin 9.4, platelet count 228,000 with neutrophil count 3.1 and lymphocyte count 1.0. Basic metabolic panel done today showed relatively normal electrolytes. BUN was 17 and creatinine 1.05 with GFR of 49 mL per minute. Nonfasting glucose was 188. IMPRESSION: 1. Allergic reaction to carboplatin with significant wheezing and hypoxia in spite of oxygen administration. 2. The patient did not respond to Solu-Medrol, Benadryl and epinephrine for approximately 30 minutes and hence admitted to the ICU for further management. 3. History of recurrent ovarian cancer and on chemotherapy with weekly carboplatin and paclitaxel regimen. 4. Other comorbidities with coronary artery disease, peripheral arterial disease, hypertension, hypercholesterolemia, diabetes mellitus 2, chronic kidney disease stage III, etc. PLAN: 1. We will admit the patient to the hospital on observation status to ICU. 2. Stat nebulizer treatment with albuterol 2.5 mg. 3. Monitor her vital signs and oxygenation closely. 4. Resume home medications. Titrate oxygen to maintain saturation more than 92%. 5. If she is stable tomorrow morning, I will discharge the patient home. 6. Once she recovers from the current episode, we will resume chemotherapy with single agent taxane because of the allergic reaction to carboplatin. Job ID: [id number] DocumentID: [id number] Dictated Date: 01/05/2019 18:25:30 Retail Greeter Date: 01/05/2019 19:32:11 Dictated By: AUTUMN LINN MD
[2019-01-06] VITALS (10 sets, daily range): BP systolic 103–116; BP diastolic 53–61
[2019-01-06 05:19] LABS: BASOPHILS % (AUTO) 0 % (0-10); EOSINOPHILS % (AUTO) 0 % (0-10); HEMATOCRIT 31 % (35-52); HEMOGLOBIN 9.8 G/DL (11.5-16.0); LYMPHOCYTES # (AUTO) 0.4 X 10^3 (1.0-4.0); LYMPHOCYTES % (AUTO) 6 % (12-44); MEAN CORPUSCULAR HEMOGLOBIN 27 PG (25-34); MEAN CORPUSCULAR HGB CONC 32 G/DL (32-36); MEAN CORPUSCULAR VOLUME 85 FL (80-99); MEAN PLATELET VOLUME 8.9 FL (7.4-10.4); MONOCYTES # (AUTO) 0.1 X 10^3 (0.0-1.0); MONOCYTES % (AUTO) 1 % (0-12); NEUTROPHILS # (AUTO) 6.4 X 10^3 (1.8-7.8); NEUTROPHILS % (AUTO) 93 % (42-75); PLATELET COUNT 215 10^3/uL (130-400); RED CELL DISTRIBUTION WIDTH 15.5 % (10.0-14.5); WHITE BLOOD COUNT 6.8 10^3/uL (4.3-11.0)
[2019-01-06 05:34] LABS: CALCIUM 8.9 MG/DL (8.5-10.1); CREATININE SERUM 1.03 MG/DL (0.60-1.30); MAGNESIUM 1.6 MG/DL (1.8-2.4); POTASSIUM 4.2 MMOL/L (3.6-5.0)
[2019-01-06] MEDS ORDERED: KCL 20 MEQ TAB (K-DUR) PO SCH (06:00)
[2019-01-06] MEDS ORDERED: MAGNESIUM 1 GM/100 ML IVPB 100 ML IV SCH (06:00)
[2019-01-06] MEDS ORDERED: POTASSIUM CL 10MEQ/50ML IVPB 50 ML IV SCH (06:00)
[2019-01-06 06:18] LABS: LYMPHOCYTES % (MANUAL) 5 %; MONOCYTES % (MANUAL) 1 %; NEUTROPHILS % (MANUAL) 94 %
[2019-01-06 06:19] LABS: HYPOCHROMASIA SLIGHT
[2019-01-06] MEDS ORDERED: ASPIRIN E.C. 81 MG (ECOTRIN) TAB PO SCH (09:00)
[2019-01-06] MEDS ORDERED: PANTOPRAZOLE 40 MG (PROTONIX) TAB PO SCH (09:00)
[2019-01-06] MEDS ORDERED: VALSARTAN 160 MG (DIOVAN) TABLET PO SCH (09:00)
[2019-01-06] MEDS ORDERED: HYDROCHLOROTHIAZIDE 25 MG (HCTZ) TAB PO SCH (09:00)
[2019-01-06] MEDS ORDERED: LISI10TA2 PO (09:03)
[2019-01-06] MEDS ORDERED: ONDA8TAB12 PO (09:03)
--- NOTE | 2019-01-06 09:06 | NUR ---
WENT OVER THE EXT MED HX WITH THE PATIENT AND SHE VERIFIED HOW SHE TAKES THEM. SHE STATES SHE IS NO LONGER TAKING THE DEXAMETHASONE. SHE TAKES BENADRYL PRN, AND ASPIRIN 81MG HS OTC.
--- NOTE | 2019-01-06 09:38 | Discharge Inst-Simple/Standard ---
Discharge Inst-Standard Discharge Medications New, Converted or Re-Newed RX: Other Patient Instructions/Follow Up Plan of Care/Instructions/FU: Contact Cancer Center for any new or unusual symptoms. F/U at cancer center on 02/02/2019 as scheduled. Keep scheduled appointments on 01/12/2019, 01/19/2019 and 01/26/2019 for chemo and labwork. Activity as Tolerated: Yes Discharge Diet: ADA Diet AUTUMN LINN Jan 06, 2019 09:38
--- NOTE | 2019-01-06 11:11 | NUR ---
1050 After reviewing Discharge packet with patient all lines were removed including Left Port that was accessed. Needle removed and no bleeding or bruising afterwards. Chloraprep used to cleanse around access site. Telemetry and BP cuff removed and patient wheeled out to front entrance accompanied by family member and student nurse.
--- NOTE | 2019-01-06 12:49 | NUR ---
Prior to discharge,met with pt and her niece who lives with pt. They were looking forward to discharge home and had no continued care needs. Will be followed by the Cancer Center
--- NOTE | 2019-01-06 16:58 | DISCHARGE SUMMARY ---
DATE OF SERVICE: Date of admission to ICU on 01/05/2019 for observation status. Date of discharge on 01/06/2019. FINAL DIAGNOSES: 1. Major allergic reaction to carboplatin chemotherapy. 2. Recurrent ovarian cancer. 3. Diabetes mellitus type 2. 4. Chronic kidney disease stage III. SUMMARY: The patient is an 88-year-old female with history of recurrent ovarian cancer, who was on chemotherapy with carboplatin and paclitaxel regimen weekly. She received course 2, day one of chemotherapy on 01/05/2019 and midway through the infusion of carboplatin, developed a major allergic reaction with bronchospasm, tachycardia, hypoxia and hypertension. The carboplatin infusion was immediately stopped and the patient was treated with IV Benadryl, Solu-Medrol and epinephrine. In spite of this, she continued to have bronchospasm and hypoxia and was moved to intensive care unit. She was administered bronchodilators via nebulizer and over the next 30 to 45 minutes, her condition gradually improved. It was decided to monitor her overnight to rule out rebound symptoms. She did not have any problems through the night and her vital signs and oxygen saturation were maintained. Repeat lab work done on 01/06/2019 showed WBC 6.8, hemoglobin 9.8, platelet count 215,000 with neutrophil count 6.4 and lymphocyte count 0.4. Basic metabolic panel showed normal electrolytes. BUN was 21 and creatinine 1.03 with GFR 50 mL per minute, which has been stable. Her serum magnesium level was slightly below normal at 1.6. As she is stable and back to her baseline, it was decided to discharge the patient home. She was instructed to continue her home medications and no new prescriptions were added. She was instructed to keep her appointments for weekly chemotherapy on 01/12/2019 and 01/19/2019. We will discontinue the carboplatin and use paclitaxel as a single agent. She has a followup office visit scheduled on 02/02/2019 with repeat lab work and was instructed to keep this. If she is having any new or unusual symptoms, she was instructed to contact the Cancer Center or come to the emergency room. Job ID: [id number] DocumentID: [id number] Dictated Date: 01/06/2019 09:47:07 Box Covering Machine Operator Date: 01/06/2019 16:57:27 Dictated By: AUTUMN LINN MD
== END 2019-01-06 09:33 | disposition home or self-care (01) ==
LOC: ICU 15:45
PROVIDERS: ADMIT Internal Medicine Hematology & Oncology; ATTEND Internal Medicine Hematology & Oncology
DX: J70.4 Drug-induced interstitial lung disorders, unspecified (principal); R00.0 Tachycardia, unspecified; R09.02 Hypoxemia; I12.9 Hypertensive chronic kidney disease with stage 1 through stage 4 chronic kidney disease, or unspecified chronic kidney disease; T45.1X5A Adverse effect of antineoplastic and immunosuppressive drugs, initial encounter; C56.9 Malignant neoplasm of unspecified ovary; E11.22 Type 2 diabetes mellitus with diabetic chronic kidney disease; N18.3 Chronic kidney disease, stage 3 (moderate); E78.00 Pure hypercholesterolemia, unspecified; I25.10 Atherosclerotic heart disease of native coronary artery without angina pectoris; I65.29 Occlusion and stenosis of unspecified carotid artery; I73.9 Peripheral vascular disease, unspecified; Z95.5 Presence of coronary angioplasty implant and graft
CPT/HCPCS: 36415; 80048; 83735; 85007; 85027; 94640; 99211; G0378

== ENCOUNTER → 2019-01-19 | Outpatient (CLI) | payer MEDICARE, OTHER ==
[~2019-01-19] MED LIST changes: +LISI10TA2 PO
--- NOTE | 2019-01-19 15:11 | Diagnostic Imaging Report ---
PROCEDURE: US left lower extremity venous. TECHNIQUE: Multiple real-time grayscale images were obtained over the left lower extremity in various projections. Additional duplex Doppler and color Doppler images were also obtained. INDICATION: Left leg swelling. FINDINGS: There is no evidence of left lower extremity DVT. Left lower extremity deep venous system shows normal compressibility with normal response to augmentation and Valsalva. No fluid collection or mass is seen. IMPRESSION: No evidence of left lower extremity DVT. Dictated by: Dictated on workstation # [id number]
== END ==
LOC: RAD 13:03
PROVIDERS: ATTEND Internal Medicine Hematology & Oncology
DX: M79.89 Other specified soft tissue disorders (principal)

== ENCOUNTER 2019-01-26 13:17 | Outpatient (RCR) | payer MEDICARE, OTHER ==
[2018-11-22 14:56] LABS: BASOPHILS % (AUTO) 0 % (0-10); EOSINOPHILS # (AUTO) 0.1 10^3/uL (0.0-0.3); EOSINOPHILS % (AUTO) 1 % (0-10); HEMATOCRIT 34 % (35-52); HEMOGLOBIN 10.8 G/DL (11.5-16.0); LYMPHOCYTES # (AUTO) 1.6 X 10^3 (1.0-4.0); LYMPHOCYTES % (AUTO) 17 % (12-44); MEAN CORPUSCULAR HEMOGLOBIN 27 PG (25-34); MEAN CORPUSCULAR HGB CONC 32 G/DL (32-36); MEAN CORPUSCULAR VOLUME 85 FL (80-99); MONOCYTES # (AUTO) 0.6 X 10^3 (0.0-1.0); MONOCYTES % (AUTO) 6 % (0-12); NEUTROPHILS # (AUTO) 6.8 X 10^3 (1.8-7.8); NEUTROPHILS % (AUTO) 75 % (42-75); PLATELET COUNT 366 10^3/uL (130-400); RED CELL DISTRIBUTION WIDTH 13.5 % (10.0-14.5); WHITE BLOOD COUNT 9.1 10^3/uL (4.3-11.0)
[2018-11-22 15:11] LABS: ALBUMIN 3.8 GM/DL (3.2-4.5); BILIRUBIN,TOTAL 0.2 MG/DL (0.1-1.0); CALCIUM 9.3 MG/DL (8.5-10.1); CREATININE SERUM 1.51 MG/DL (0.60-1.30); POTASSIUM 4.1 MMOL/L (3.6-5.0); TOTAL PROTEIN 7.2 GM/DL (6.4-8.2)
[2018-11-24 14:15] LABS: CALCIUM 9.6 MG/DL (8.5-10.1); CREATININE SERUM 1.29 MG/DL (0.60-1.30); POTASSIUM 4.2 MMOL/L (3.6-5.0)
[2018-12-08 10:10] LABS: BASOPHILS % (AUTO) 0 % (0-10); EOSINOPHILS % (AUTO) 0 % (0-10); HEMATOCRIT 33 % (35-52); HEMOGLOBIN 10.5 G/DL (11.5-16.0); LYMPHOCYTES # (AUTO) 0.6 X 10^3 (1.0-4.0); LYMPHOCYTES % (AUTO) 10 % (12-44); MEAN CORPUSCULAR HEMOGLOBIN 27 PG (25-34); MEAN CORPUSCULAR HGB CONC 32 G/DL (32-36); MEAN CORPUSCULAR VOLUME 85 FL (80-99); MEAN PLATELET VOLUME 8.9 FL (7.4-10.4); MONOCYTES % (AUTO) 1 % (0-12); NEUTROPHILS % (AUTO) 89 % (42-75); PLATELET COUNT 335 10^3/uL (130-400); RED CELL DISTRIBUTION WIDTH 14.1 % (10.0-14.5); WHITE BLOOD COUNT 5.7 10^3/uL (4.3-11.0)
[2018-12-08 10:35] LABS: ALBUMIN 3.6 GM/DL (3.2-4.5); BILIRUBIN,TOTAL 0.3 MG/DL (0.1-1.0); CALCIUM 9.5 MG/DL (8.5-10.1); CREATININE SERUM 1.28 MG/DL (0.60-1.30); TOTAL PROTEIN 7.2 GM/DL (6.4-8.2)
[2018-12-15 13:15] LABS: BASOPHILS % (AUTO) 0 % (0-10); EOSINOPHILS % (AUTO) 0 % (0-10); HEMATOCRIT 32 % (35-52); HEMOGLOBIN 9.9 G/DL (11.5-16.0); LYMPHOCYTES # (AUTO) 0.5 X 10^3 (1.0-4.0); LYMPHOCYTES % (AUTO) 7 % (12-44); MEAN CORPUSCULAR HEMOGLOBIN 27 PG (25-34); MEAN CORPUSCULAR HGB CONC 31 G/DL (32-36); MEAN CORPUSCULAR VOLUME 86 FL (80-99); MEAN PLATELET VOLUME 9.3 FL (7.4-10.4); MONOCYTES % (AUTO) 1 % (0-12); NEUTROPHILS # (AUTO) 6.1 X 10^3 (1.8-7.8); NEUTROPHILS % (AUTO) 92 % (42-75); PLATELET COUNT 322 10^3/uL (130-400); RED CELL DISTRIBUTION WIDTH 14.2 % (10.0-14.5); WHITE BLOOD COUNT 6.7 10^3/uL (4.3-11.0)
[2018-12-15 13:33] LABS: CALCIUM 9.4 MG/DL (8.5-10.1); CREATININE SERUM 1.25 MG/DL (0.60-1.30); POTASSIUM 4.5 MMOL/L (3.6-5.0)
[2018-12-22 13:45] LABS: BASOPHILS % (AUTO) 1 % (0-10); EOSINOPHILS # (AUTO) 0.1 10^3/uL (0.0-0.3); EOSINOPHILS % (AUTO) 2 % (0-10); HEMATOCRIT 28 % (35-52); HEMOGLOBIN 8.8 G/DL (11.5-16.0); LYMPHOCYTES # (AUTO) 1.1 X 10^3 (1.0-4.0); LYMPHOCYTES % (AUTO) 35 % (12-44); MEAN CORPUSCULAR HEMOGLOBIN 27 PG (25-34); MEAN CORPUSCULAR HGB CONC 31 G/DL (32-36); MEAN CORPUSCULAR VOLUME 87 FL (80-99); MEAN PLATELET VOLUME 9.4 FL (7.4-10.4); MONOCYTES # (AUTO) 0.3 X 10^3 (0.0-1.0); MONOCYTES % (AUTO) 11 % (0-12); NEUTROPHILS # (AUTO) 1.6 X 10^3 (1.8-7.8); NEUTROPHILS % (AUTO) 52 % (42-75); PLATELET COUNT 206 10^3/uL (130-400); RED CELL DISTRIBUTION WIDTH 14.4 % (10.0-14.5)
[2018-12-22 14:08] LABS: CREATININE SERUM 1.13 MG/DL (0.60-1.30); POTASSIUM 4.4 MMOL/L (3.6-5.0)
[2018-12-22 14:09] LABS: CALCIUM 8.8 MG/DL (8.5-10.1)
[2018-12-29 13:14] LABS: BASOPHILS % (AUTO) 0 % (0-10); EOSINOPHILS # (AUTO) 0.1 10^3/uL (0.0-0.3); EOSINOPHILS % (AUTO) 2 % (0-10); HEMATOCRIT 29 % (35-52); HEMOGLOBIN 9.2 G/DL (11.5-16.0); LYMPHOCYTES % (AUTO) 23 % (12-44); MEAN CORPUSCULAR HEMOGLOBIN 27 PG (25-34); MEAN CORPUSCULAR HGB CONC 32 G/DL (32-36); MEAN CORPUSCULAR VOLUME 86 FL (80-99); MEAN PLATELET VOLUME 9.2 FL (7.4-10.4); MONOCYTES # (AUTO) 0.5 X 10^3 (0.0-1.0); MONOCYTES % (AUTO) 11 % (0-12); NEUTROPHILS % (AUTO) 65 % (42-75); PLATELET COUNT 224 10^3/uL (130-400); RED CELL DISTRIBUTION WIDTH 15.1 % (10.0-14.5); WHITE BLOOD COUNT 4.6 10^3/uL (4.3-11.0)
[2018-12-29 13:40] LABS: ALBUMIN 3.5 GM/DL (3.2-4.5); BILIRUBIN,TOTAL 0.3 MG/DL (0.1-1.0); CALCIUM 8.9 MG/DL (8.5-10.1); CREATININE SERUM 1.36 MG/DL (0.60-1.30); MAGNESIUM 1.2 MG/DL (1.8-2.4); POTASSIUM 4.1 MMOL/L (3.6-5.0); TOTAL PROTEIN 6.7 GM/DL (6.4-8.2)
[2019-01-05 13:24] LABS: BASOPHILS % (AUTO) 0 % (0-10); EOSINOPHILS # (AUTO) 0.1 10^3/uL (0.0-0.3); EOSINOPHILS % (AUTO) 2 % (0-10); HEMATOCRIT 30 % (35-52); HEMOGLOBIN 9.4 G/DL (11.5-16.0); LYMPHOCYTES % (AUTO) 22 % (12-44); MEAN CORPUSCULAR HEMOGLOBIN 27 PG (25-34); MEAN CORPUSCULAR HGB CONC 31 G/DL (32-36); MEAN CORPUSCULAR VOLUME 88 FL (80-99); MEAN PLATELET VOLUME 8.5 FL (7.4-10.4); MONOCYTES # (AUTO) 0.5 X 10^3 (0.0-1.0); MONOCYTES % (AUTO) 11 % (0-12); NEUTROPHILS # (AUTO) 3.1 X 10^3 (1.8-7.8); NEUTROPHILS % (AUTO) 65 % (42-75); PLATELET COUNT 228 10^3/uL (130-400); RED CELL DISTRIBUTION WIDTH 16.1 % (10.0-14.5); WHITE BLOOD COUNT 4.7 10^3/uL (4.3-11.0)
[2019-01-05 13:48] LABS: CALCIUM 9.3 MG/DL (8.5-10.1); CREATININE SERUM 1.05 MG/DL (0.60-1.30); POTASSIUM 3.9 MMOL/L (3.6-5.0)
[2019-01-12 13:03] LABS: BASOPHILS % (AUTO) 0 % (0-10); EOSINOPHILS # (AUTO) 0.1 10^3/uL (0.0-0.3); EOSINOPHILS % (AUTO) 2 % (0-10); HEMATOCRIT 30 % (35-52); HEMOGLOBIN 9.4 G/DL (11.5-16.0); LYMPHOCYTES # (AUTO) 1.1 X 10^3 (1.0-4.0); LYMPHOCYTES % (AUTO) 19 % (12-44); MEAN CORPUSCULAR HEMOGLOBIN 27 PG (25-34); MEAN CORPUSCULAR HGB CONC 31 G/DL (32-36); MEAN CORPUSCULAR VOLUME 87 FL (80-99); MEAN PLATELET VOLUME 9.2 FL (7.4-10.4); MONOCYTES # (AUTO) 0.4 X 10^3 (0.0-1.0); MONOCYTES % (AUTO) 7 % (0-12); NEUTROPHILS # (AUTO) 4.1 X 10^3 (1.8-7.8); NEUTROPHILS % (AUTO) 72 % (42-75); PLATELET COUNT 253 10^3/uL (130-400); RED CELL DISTRIBUTION WIDTH 16.9 % (10.0-14.5); WHITE BLOOD COUNT 5.7 10^3/uL (4.3-11.0)
[2019-01-12 13:25] LABS: CALCIUM 9.2 MG/DL (8.5-10.1); CREATININE SERUM 1.14 MG/DL (0.60-1.30)
[2019-01-19 12:56] LABS: BASOPHILS % (AUTO) 0 % (0-10); EOSINOPHILS # (AUTO) 0.1 10^3/uL (0.0-0.3); EOSINOPHILS % (AUTO) 2 % (0-10); HEMATOCRIT 28 % (35-52); HEMOGLOBIN 8.9 G/DL (11.5-16.0); LYMPHOCYTES # (AUTO) 1.1 X 10^3 (1.0-4.0); LYMPHOCYTES % (AUTO) 34 % (12-44); MEAN CORPUSCULAR HEMOGLOBIN 28 PG (25-34); MEAN CORPUSCULAR HGB CONC 31 G/DL (32-36); MEAN CORPUSCULAR VOLUME 89 FL (80-99); MEAN PLATELET VOLUME 8.9 FL (7.4-10.4); MONOCYTES # (AUTO) 0.3 X 10^3 (0.0-1.0); MONOCYTES % (AUTO) 10 % (0-12); NEUTROPHILS # (AUTO) 1.7 X 10^3 (1.8-7.8); NEUTROPHILS % (AUTO) 54 % (42-75); PLATELET COUNT 290 10^3/uL (130-400); RED CELL DISTRIBUTION WIDTH 17.7 % (10.0-14.5); WHITE BLOOD COUNT 3.2 10^3/uL (4.3-11.0)
[2019-01-19 13:12] LABS: CALCIUM 8.9 MG/DL (8.5-10.1); CREATININE SERUM 0.89 MG/DL (0.60-1.30); POTASSIUM 3.9 MMOL/L (3.6-5.0)
[~2019-01-26] VITALS: Ht 167.6 cm; Wt 63.5 kg
[~2019-01-26 13:17] MED LIST changes: +CARBOPLATIN IV ONE; +FAMOTIDINE 20MG/2ML IV (CANCER CTR) IV SCH; +NS IV 1000 ML (CANCER CTR) 1,000 ML ONE; +NS IV 1000 ML (CANCER CTR) IV SCH; +NS IV 500 ML (CANCER CENTER) 500 ML ONE; +NS IV ONE; +PALONOSETRON HCL 0.25 MG, DEXAMETHASONE INJECTION 10 MG in NS (IVPB) CANCER CENTER 50 ML IV SCH; +diphenhydrAMINE 25 MG TAB (BENADRYL) CANCER CENTER PO ONE; +diphenhydrAMINE 50 MG/ML INJ (CANCER CENTER) IV PRN; +diphenhydrAMINE 50 MG/ML INJ (CANCER CENTER) ONE; +methylPREDNISolone 125 MG/2 ML (SOLU-MEDROL) CANCER CTR ONE
[2019-01-26 13:40] LABS: BASOPHILS % (AUTO) 1 % (0-10); EOSINOPHILS # (AUTO) 0.1 10^3/uL (0.0-0.3); EOSINOPHILS % (AUTO) 2 % (0-10); HEMATOCRIT 29 % (35-52); LYMPHOCYTES % (AUTO) 30 % (12-44); MEAN CORPUSCULAR HEMOGLOBIN 28 PG (25-34); MEAN CORPUSCULAR HGB CONC 31 G/DL (32-36); MEAN CORPUSCULAR VOLUME 90 FL (80-99); MEAN PLATELET VOLUME 9.6 FL (7.4-10.4); MONOCYTES # (AUTO) 0.3 X 10^3 (0.0-1.0); MONOCYTES % (AUTO) 9 % (0-12); NEUTROPHILS # (AUTO) 1.9 X 10^3 (1.8-7.8); NEUTROPHILS % (AUTO) 59 % (42-75); PLATELET COUNT 276 10^3/uL (130-400); RED CELL DISTRIBUTION WIDTH 18.4 % (10.0-14.5); WHITE BLOOD COUNT 3.2 10^3/uL (4.3-11.0)
[2019-01-26 14:00] LABS: CALCIUM 9.5 MG/DL (8.5-10.1); CREATININE SERUM 1.01 MG/DL (0.60-1.30); POTASSIUM 3.8 MMOL/L (3.6-5.0)
== END 2019-01-30 | disposition home or self-care (01) ==
LOC: ONC 13:17
PROVIDERS: ATTEND Internal Medicine Hematology & Oncology
DX: C56.2 Malignant neoplasm of left ovary (principal); C79.2 Secondary malignant neoplasm of skin; D50.9 Iron deficiency anemia, unspecified; N18.3 Chronic kidney disease, stage 3 (moderate); Z79.899 Other long term (current) drug therapy; Z92.21 Personal history of antineoplastic chemotherapy; Z45.2 Encounter for adjustment and management of vascular access device; K63.89 Other specified diseases of intestine; E86.0 Dehydration; Z95.828 Presence of other vascular implants and grafts
CPT/HCPCS: 36415; 36591; 71260; 74178; 80048; 80053; 82728; 83735; 85025; 86304; 96360; 96361; 96375; 96413; 96417; 96523; 99213

== ENCOUNTER → 2019-02-23 | Outpatient (CLI) | payer MEDICARE, OTHER ==
[~2019-02-23] MED LIST changes: -CARBOPLATIN IV ONE; -FAMOTIDINE 20MG/2ML IV (CANCER CTR) IV SCH; -NS IV 1000 ML (CANCER CTR) 1,000 ML ONE; -NS IV 1000 ML (CANCER CTR) IV SCH; -NS IV 500 ML (CANCER CENTER) 500 ML ONE; -NS IV ONE; -PALONOSETRON HCL 0.25 MG, DEXAMETHASONE INJECTION 10 MG in NS (IVPB) CANCER CENTER 50 ML IV SCH; -diphenhydrAMINE 25 MG TAB (BENADRYL) CANCER CENTER PO ONE; -diphenhydrAMINE 50 MG/ML INJ (CANCER CENTER) IV PRN; -diphenhydrAMINE 50 MG/ML INJ (CANCER CENTER) ONE; -methylPREDNISolone 125 MG/2 ML (SOLU-MEDROL) CANCER CTR ONE
--- NOTE | 2019-02-23 14:50 | Diagnostic Imaging Report ---
INDICATION: Right leg pain. COMPARISON: September 24, 2010. TECHNIQUE: Four radiographs of the right femur and hip dated February 23, 2019. FINDINGS: No acute fracture or dislocation. No destructive osseous process. Mild degenerative changes of the right hip. The right femoral head maintains its normal shape and contour. Minimal chondrocalcinosis of the medial and lateral menisci. No significant knee joint effusion. Small superior patellar enthesophytes. IMPRESSION: No acute osseous abnormality with mild degenerative changes. 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 Alternately, this could simply relate to osteoarthritis. Dictated by: Dictated on workstation # [id number]
== END ==
LOC: RAD 12:09
PROVIDERS: ATTEND Family Medicine
DX: M11.261 Other chondrocalcinosis, right knee (principal); M16.11 Unilateral primary osteoarthritis, right hip
CPT/HCPCS: 73552

== ENCOUNTER → 2019-03-17 | Outpatient (CLI) | payer MEDICARE, OTHER ==
[~2019-03-17] MED LIST changes: +CATHETER FLUSH 10 ML SYR IV PRN; +HOLD METFORMIN - RECEIVED CONTRAST 20 ML VIAL IV SCH; +IOHEXOL 350 MG/ML 100 ML (OMNIPAQUE 350) VIAL IV ONE; +NS 100 ML (IVPB) BAG IV ONE
--- NOTE | 2019-03-17 16:37 | Diagnostic Imaging Report ---
PROCEDURE: CT chest with contrast, CT abdomen and pelvis with and without contrast. TECHNIQUE: Pre and post intravenous contrast axial imaging of the abdomen and pelvis and post contrast axial imaging of the chest were performed. Auto Exposure Controls were utilized during the CT exam to meet ALARA standards for radiation dose reduction. INDICATION: Ovarian cancer. FINDINGS: Comparison is 12/01/2018. There is an area of atelectasis in the anterior right upper lobe. No suspicious nodules. No edema. No pneumonia. No pleural effusion. No pneumothorax. Port catheter is present through a left internal jugular approach. Heart size is normal. There are moderate coronary artery calcifications. Aorta is normal in caliber. No pericardial effusion. No axillary, supraclavicular, or mediastinal lymphadenopathy. Soft tissue thickening between the liver and undersurface of the right hemidiaphragm has decreased. It now measures 4.9 x 1.6 cm, previously 5.7 x 2.9 cm. No focal liver lesions are seen. No biliary ductal dilation. Portal vein is patent. Gallbladder is normal. Pancreas, spleen, and adrenal glands are normal. Kidneys enhance symmetrically without focal lesion. No hydronephrosis. Urinary bladder is normal. No pelvic mass is seen. No dilated loops of large or small bowel. There is no abdominal or pelvic lymphadenopathy. The previously seen small bowel thickening in the right abdomen has also resolved. There is no free fluid or air. Abdominal aorta is normal in caliber. There are no suspicious osseous lesions. Bone island in the right iliac is unchanged. IMPRESSION: 1. Decrease in size of soft tissue mass in the right upper abdomen and resolution of small bowel thickening. Dictated by: Dictated on workstation # [id number]
== END ==
LOC: RAD 13:39
PROVIDERS: ATTEND Nurse Practitioner Adult Health
DX: C56.9 Malignant neoplasm of unspecified ovary (principal); R19.01 Right upper quadrant abdominal swelling, mass and lump
CPT/HCPCS: 71260; 74178

== ENCOUNTER 2019-03-31 10:33 | Outpatient (RCR) | payer MEDICARE, OTHER ==
[2019-02-02 11:04] LABS: BASOPHILS % (AUTO) 1 % (0-10); EOSINOPHILS # (AUTO) 0.1 10^3/uL (0.0-0.3); EOSINOPHILS % (AUTO) 1 % (0-10); HEMATOCRIT 31 % (35-52); HEMOGLOBIN 9.6 G/DL (11.5-16.0); LYMPHOCYTES # (AUTO) 1.2 X 10^3 (1.0-4.0); LYMPHOCYTES % (AUTO) 23 % (12-44); MEAN CORPUSCULAR HEMOGLOBIN 27 PG (25-34); MEAN CORPUSCULAR HGB CONC 31 G/DL (32-36); MEAN CORPUSCULAR VOLUME 87 FL (80-99); MEAN PLATELET VOLUME 9.1 FL (7.4-10.4); MONOCYTES # (AUTO) 0.6 X 10^3 (0.0-1.0); MONOCYTES % (AUTO) 12 % (0-12); NEUTROPHILS # (AUTO) 3.2 X 10^3 (1.8-7.8); NEUTROPHILS % (AUTO) 63 % (42-75); PLATELET COUNT 295 10^3/uL (130-400); RED CELL DISTRIBUTION WIDTH 18.3 % (10.0-14.5); WHITE BLOOD COUNT 5.1 10^3/uL (4.3-11.0)
[2019-02-02 11:28] LABS: ALBUMIN 3.8 GM/DL (3.2-4.5); BILIRUBIN,TOTAL 0.3 MG/DL (0.1-1.0); CALCIUM 9.3 MG/DL (8.5-10.1); CREATININE SERUM 1.05 MG/DL (0.60-1.30); TOTAL PROTEIN 6.6 GM/DL (6.4-8.2)
[2019-02-09 13:26] LABS: BASOPHILS % (AUTO) 0 % (0-10); EOSINOPHILS # (AUTO) 0.1 10^3/uL (0.0-0.3); EOSINOPHILS % (AUTO) 2 % (0-10); HEMATOCRIT 29 % (35-52); HEMOGLOBIN 9.4 G/DL (11.5-16.0); LYMPHOCYTES # (AUTO) 1.3 X 10^3 (1.0-4.0); LYMPHOCYTES % (AUTO) 21 % (12-44); MEAN CORPUSCULAR HEMOGLOBIN 28 PG (25-34); MEAN CORPUSCULAR HGB CONC 32 G/DL (32-36); MEAN CORPUSCULAR VOLUME 88 FL (80-99); MEAN PLATELET VOLUME 9.7 FL (7.4-10.4); MONOCYTES # (AUTO) 0.4 X 10^3 (0.0-1.0); MONOCYTES % (AUTO) 7 % (0-12); NEUTROPHILS # (AUTO) 4.4 X 10^3 (1.8-7.8); NEUTROPHILS % (AUTO) 70 % (42-75); PLATELET COUNT 295 10^3/uL (130-400); RED CELL DISTRIBUTION WIDTH 18.2 % (10.0-14.5); WHITE BLOOD COUNT 6.3 10^3/uL (4.3-11.0)
[2019-02-09 13:42] LABS: CALCIUM 8.7 MG/DL (8.5-10.1); CREATININE SERUM 1.85 MG/DL (0.60-1.30); POTASSIUM 4.1 MMOL/L (3.6-5.0)
[2019-02-16 13:35] LABS: BASOPHILS % (AUTO) 0 % (0-10); EOSINOPHILS # (AUTO) 0.1 10^3/uL (0.0-0.3); EOSINOPHILS % (AUTO) 2 % (0-10); HEMATOCRIT 28 % (35-52); HEMOGLOBIN 8.9 G/DL (11.5-16.0); LYMPHOCYTES # (AUTO) 1.2 X 10^3 (1.0-4.0); LYMPHOCYTES % (AUTO) 22 % (12-44); MEAN CORPUSCULAR HEMOGLOBIN 28 PG (25-34); MEAN CORPUSCULAR HGB CONC 31 G/DL (32-36); MEAN CORPUSCULAR VOLUME 90 FL (80-99); MEAN PLATELET VOLUME 9.2 FL (7.4-10.4); MONOCYTES # (AUTO) 0.6 X 10^3 (0.0-1.0); MONOCYTES % (AUTO) 11 % (0-12); NEUTROPHILS # (AUTO) 3.6 X 10^3 (1.8-7.8); NEUTROPHILS % (AUTO) 66 % (42-75); PLATELET COUNT 277 10^3/uL (130-400); WHITE BLOOD COUNT 5.5 10^3/uL (4.3-11.0)
[2019-02-16 13:57] LABS: CALCIUM 9.3 MG/DL (8.5-10.1); CREATININE SERUM 1.16 MG/DL (0.60-1.30); POTASSIUM 4.1 MMOL/L (3.6-5.0)
[2019-02-23 12:04] LABS: BASOPHILS % (AUTO) 0 % (0-10); EOSINOPHILS # (AUTO) 0.1 10^3/uL (0.0-0.3); EOSINOPHILS % (AUTO) 2 % (0-10); HEMATOCRIT 30 % (35-52); HEMOGLOBIN 9.4 G/DL (11.5-16.0); LYMPHOCYTES # (AUTO) 1.3 X 10^3 (1.0-4.0); LYMPHOCYTES % (AUTO) 31 % (12-44); MEAN CORPUSCULAR HEMOGLOBIN 28 PG (25-34); MEAN CORPUSCULAR HGB CONC 32 G/DL (32-36); MEAN CORPUSCULAR VOLUME 90 FL (80-99); MEAN PLATELET VOLUME 9.2 FL (7.4-10.4); MONOCYTES # (AUTO) 0.4 X 10^3 (0.0-1.0); MONOCYTES % (AUTO) 9 % (0-12); NEUTROPHILS # (AUTO) 2.4 X 10^3 (1.8-7.8); NEUTROPHILS % (AUTO) 58 % (42-75); PLATELET COUNT 317 10^3/uL (130-400); RED CELL DISTRIBUTION WIDTH 18.2 % (10.0-14.5); WHITE BLOOD COUNT 4.2 10^3/uL (4.3-11.0)
[2019-02-23 12:24] LABS: CALCIUM 9.8 MG/DL (8.5-10.1); CREATININE SERUM 1.47 MG/DL (0.60-1.30); POTASSIUM 3.9 MMOL/L (3.6-5.0)
[2019-03-02 11:10] LABS: BASOPHILS % (AUTO) 0 % (0-10); EOSINOPHILS # (AUTO) 0.1 10^3/uL (0.0-0.3); EOSINOPHILS % (AUTO) 2 % (0-10); HEMATOCRIT 32 % (35-52); HEMOGLOBIN 9.8 G/DL (11.5-16.0); LYMPHOCYTES % (AUTO) 17 % (12-44); MEAN CORPUSCULAR HEMOGLOBIN 28 PG (25-34); MEAN CORPUSCULAR HGB CONC 31 G/DL (32-36); MEAN CORPUSCULAR VOLUME 89 FL (80-99); MEAN PLATELET VOLUME 8.6 FL (7.4-10.4); MONOCYTES # (AUTO) 0.7 X 10^3 (0.0-1.0); MONOCYTES % (AUTO) 11 % (0-12); NEUTROPHILS # (AUTO) 4.4 X 10^3 (1.8-7.8); NEUTROPHILS % (AUTO) 71 % (42-75); PLATELET COUNT 295 10^3/uL (130-400); RED CELL DISTRIBUTION WIDTH 17.9 % (10.0-14.5); WHITE BLOOD COUNT 6.2 10^3/uL (4.3-11.0)
[2019-03-02 11:32] LABS: ALBUMIN 3.7 GM/DL (3.2-4.5); BILIRUBIN,TOTAL 0.3 MG/DL (0.1-1.0); CALCIUM 9.2 MG/DL (8.5-10.1); CREATININE SERUM 1.35 MG/DL (0.60-1.30); POTASSIUM 3.9 MMOL/L (3.6-5.0); TOTAL PROTEIN 6.3 GM/DL (6.4-8.2)
[2019-03-17 13:02] LABS: BASOPHILS % (AUTO) 0 % (0-10); EOSINOPHILS # (AUTO) 0.1 10^3/uL (0.0-0.3); EOSINOPHILS % (AUTO) 2 % (0-10); HEMATOCRIT 33 % (35-52); HEMOGLOBIN 10.2 G/DL (11.5-16.0); LYMPHOCYTES # (AUTO) 1.3 X 10^3 (1.0-4.0); LYMPHOCYTES % (AUTO) 19 % (12-44); MEAN CORPUSCULAR HEMOGLOBIN 27 PG (25-34); MEAN CORPUSCULAR HGB CONC 31 G/DL (32-36); MEAN CORPUSCULAR VOLUME 88 FL (80-99); MEAN PLATELET VOLUME 9.5 FL (7.4-10.4); MONOCYTES # (AUTO) 0.9 X 10^3 (0.0-1.0); MONOCYTES % (AUTO) 13 % (0-12); NEUTROPHILS # (AUTO) 4.5 X 10^3 (1.8-7.8); NEUTROPHILS % (AUTO) 66 % (42-75); PLATELET COUNT 264 10^3/uL (130-400); RED CELL DISTRIBUTION WIDTH 16.2 % (10.0-14.5); WHITE BLOOD COUNT 6.8 10^3/uL (4.3-11.0)
[2019-03-17 13:20] LABS: CALCIUM 9.6 MG/DL (8.5-10.1); CREATININE SERUM 1.4 MG/DL (0.60-1.30); POTASSIUM 3.6 MMOL/L (3.6-5.0)
[2019-03-23 13:20] LABS: BASOPHILS % (AUTO) 0 % (0-10); EOSINOPHILS # (AUTO) 0.1 10^3/uL (0.0-0.3); EOSINOPHILS % (AUTO) 2 % (0-10); HEMATOCRIT 34 % (35-52); HEMOGLOBIN 10.5 G/DL (11.5-16.0); LYMPHOCYTES # (AUTO) 1.7 X 10^3 (1.0-4.0); LYMPHOCYTES % (AUTO) 24 % (12-44); MEAN CORPUSCULAR HEMOGLOBIN 28 PG (25-34); MEAN CORPUSCULAR HGB CONC 31 G/DL (32-36); MEAN CORPUSCULAR VOLUME 89 FL (80-99); MEAN PLATELET VOLUME 9.9 FL (7.4-10.4); MONOCYTES # (AUTO) 0.4 X 10^3 (0.0-1.0); MONOCYTES % (AUTO) 5 % (0-12); NEUTROPHILS # (AUTO) 4.8 X 10^3 (1.8-7.8); NEUTROPHILS % (AUTO) 69 % (42-75); PLATELET COUNT 295 10^3/uL (130-400); RED CELL DISTRIBUTION WIDTH 16.1 % (10.0-14.5)
[2019-03-23 13:35] LABS: CALCIUM 9.7 MG/DL (8.5-10.1); CREATININE SERUM 1.29 MG/DL (0.60-1.30); POTASSIUM 4.3 MMOL/L (3.6-5.0)
[~2019-03-31] VITALS: Ht 167.6 cm; Wt 61.2 kg
[~2019-03-31 10:33] MED LIST changes: -CATHETER FLUSH 10 ML SYR IV PRN; +FAMOTIDINE 20MG/2ML IV (CANCER CTR) IV SCH; -HOLD METFORMIN - RECEIVED CONTRAST 20 ML VIAL IV SCH; -IOHEXOL 350 MG/ML 100 ML (OMNIPAQUE 350) VIAL IV ONE; -NS 100 ML (IVPB) BAG IV ONE; +NS IV 1000 ML (CANCER CTR) IV SCH; +PALONOSETRON HCL 0.25 MG, DEXAMETHASONE INJECTION 10 MG in NS (IVPB) CANCER CENTER 50 ML IV SCH; +diphenhydrAMINE 25 MG TAB (BENADRYL) CANCER CENTER PO SCH
[2019-03-31 10:56] LABS: BASOPHILS % (AUTO) 0 % (0-10); EOSINOPHILS # (AUTO) 0.1 10^3/uL (0.0-0.3); EOSINOPHILS % (AUTO) 2 % (0-10); HEMATOCRIT 34 % (35-52); HEMOGLOBIN 10.8 G/DL (11.5-16.0); LYMPHOCYTES # (AUTO) 1.1 X 10^3 (1.0-4.0); LYMPHOCYTES % (AUTO) 17 % (12-44); MEAN CORPUSCULAR HEMOGLOBIN 28 PG (25-34); MEAN CORPUSCULAR HGB CONC 32 G/DL (32-36); MEAN CORPUSCULAR VOLUME 87 FL (80-99); MEAN PLATELET VOLUME 9.3 FL (7.4-10.4); MONOCYTES # (AUTO) 0.7 X 10^3 (0.0-1.0); MONOCYTES % (AUTO) 10 % (0-12); NEUTROPHILS # (AUTO) 4.7 X 10^3 (1.8-7.8); NEUTROPHILS % (AUTO) 71 % (42-75); PLATELET COUNT 267 10^3/uL (130-400); RED CELL DISTRIBUTION WIDTH 15.3 % (10.0-14.5); WHITE BLOOD COUNT 6.6 10^3/uL (4.3-11.0)
[2019-03-31 11:22] LABS: ALBUMIN 3.9 GM/DL (3.2-4.5); BILIRUBIN,TOTAL 0.4 MG/DL (0.1-1.0); CALCIUM 10.4 MG/DL (8.5-10.1); CREATININE SERUM 1.03 MG/DL (0.60-1.30); POTASSIUM 3.5 MMOL/L (3.6-5.0); TOTAL PROTEIN 7.1 GM/DL (6.4-8.2)
[2019-04-24] MEDS ORDERED: PEG15DRO9 OP (15:15)
== END 2019-05-03 | disposition home or self-care (01) ==
LOC: ONC 10:33
PROVIDERS: ATTEND Internal Medicine Hematology & Oncology
DX: Z51.11 Encounter for antineoplastic chemotherapy (principal); C56.2 Malignant neoplasm of left ovary; C79.2 Secondary malignant neoplasm of skin; D50.9 Iron deficiency anemia, unspecified; N18.3 Chronic kidney disease, stage 3 (moderate); Z79.899 Other long term (current) drug therapy; Z92.21 Personal history of antineoplastic chemotherapy
CPT/HCPCS: 36415; 36591; 71260; 74178; 80048; 80053; 85025; 86304; 96375; 96413

== ENCOUNTER 2019-04-24 10:00 | Observation (INO) | payer MEDICARE, OTHER ==
[~2019-04-24] VITALS: Ht 165.1 cm; Wt 54.4 kg
[~2019-04-24 10:00] MED LIST changes: -FAMOTIDINE 20MG/2ML IV (CANCER CTR) IV SCH; -NS IV 1000 ML (CANCER CTR) IV SCH; -PALONOSETRON HCL 0.25 MG, DEXAMETHASONE INJECTION 10 MG in NS (IVPB) CANCER CENTER 50 ML IV SCH; -diphenhydrAMINE 25 MG TAB (BENADRYL) CANCER CENTER PO SCH
[2019-04-24] MEDS ORDERED: ONDANSETRON 4 MG/2 ML (SDV) Z0FRAN IVP ONE (10:45)
[2019-04-24 10:47] LABS: BASOPHILS % (AUTO) 0 % (0-10); EOSINOPHILS % (AUTO) 0 % (0-10); HEMATOCRIT 36 % (35-52); HEMOGLOBIN 11.3 G/DL (11.5-16.0); LYMPHOCYTES # (AUTO) 0.9 X 10^3 (1.0-4.0); LYMPHOCYTES % (AUTO) 11 % (12-44); MEAN CORPUSCULAR HEMOGLOBIN 27 PG (25-34); MEAN CORPUSCULAR HGB CONC 32 G/DL (32-36); MEAN CORPUSCULAR VOLUME 85 FL (80-99); MEAN PLATELET VOLUME 9.1 FL (7.4-10.4); MONOCYTES # (AUTO) 0.5 X 10^3 (0.0-1.0); MONOCYTES % (AUTO) 6 % (0-12); NEUTROPHILS # (AUTO) 6.8 X 10^3 (1.8-7.8); NEUTROPHILS % (AUTO) 83 % (42-75); PLATELET COUNT 295 10^3/uL (130-400); RED CELL DISTRIBUTION WIDTH 15.1 % (10.0-14.5); WHITE BLOOD COUNT 8.2 10^3/uL (4.3-11.0)
[2019-04-24 11:08] LABS: ALANINE AMINOTRANSFERASE < 6 U/L (0-55); ALBUMIN 3.5 GM/DL (3.2-4.5); ALKALINE PHOSPHATASE 75 U/L (40-136); BILIRUBIN,TOTAL 0.3 MG/DL (0.1-1.0); BUN/CREATININE RATIO 20; CALCIUM 9.6 MG/DL (8.5-10.1); CARBON DIOXIDE 23 MMOL/L (21-32); CHLORIDE 104 MMOL/L (98-107); CREATININE SERUM 0.97 MG/DL (0.60-1.30); GFR ESTIMATED 54; GLUCOSE 163 MG/DL (70-105); LIPASE 30 U/L (8-78); POTASSIUM 3.6 MMOL/L (3.6-5.0); SODIUM 139 MMOL/L (135-145); TOTAL PROTEIN 6.6 GM/DL (6.4-8.2)
--- OUTSIDE RECORDS SUMMARY | 2019-04-24 11:52 | XMS REPORT | Clinical Summary ---
Author Author [facility] Organization [facility] Address Unknown Phone Unavailable Care Team Providers Care Bioinformatician Name Role Phone KelseyBrianna coy DO Unavailable Anthony Gonzalez MD PCP Source Comments Some departments are not documenting in the electronic medical record. If you d o not see the information that you expected, contact Release of Information in [facility] Information Management department at [phone] for further assistan ce in locating additional records.[facility] Allergies Comments Active Allergy Reactions Severity [...] Years Used Quit: 01/06/1952 Former Smoker 3 Drinks/Week oz/Week Comments Alcohol Use No Sex Assigned at Date Recorded Not on file Industry Job Start Date Occupation Not on file Not on file Not on file Travel End Travel History Travel Start No recent travel history available. Last Filed Vital Signs Reading Time Taken Comments Vital Sign 165/82 06/23/2013 11:03 AM CDT Blood Pressure 79 06/23/2013 11:03 AM CDT Pulse 36.1 C (96.9 F) 06/23/2013 11:03 AM CDT Temperature 16 06/23/2013 11:03 AM CDT Respiratory Rate - - Oxygen Saturation - - Inhaled Oxygen Concentration 81.2 kg (179 lb) 06/23/2013 11:03 AM CDT with shoes Weight 163.6 cm (5' 4.4") 06/23/2013 11:03 AM CDT Height 30.34 06/23/2013 11:03 AM CDT Body Mass Index Plan of Treatment Health Maintenance Due Date Last Done Comments PHYSICAL (COMPREHENSIVE) 1936 EXAM DTAP/TDAP VACCINES (1 - 1947 Tdap) SHINGLES RECOMBINANT 1979 VACCINE (1 of 2) OSTEOPOROSIS 1994 SCREENING/MONITORING PNEUMONIA (PCV13/PPSV23) 1994 VACCINES (1 of 2 - PCV13) INFLUENZA VACCINE 06/13/2019 Results Not on filefrom Last 3 Months Insurance Type Payer Benefit Subscriber ID Effective Phone Address Plan / Dates Group Medicare MEDICARE MEDICARE xxxxxxxxxx [id number] PART B resent Indemnity GENERIC COMMERCIAL GENERIC xxxxxxxxxx 2011-P COMMERCIAL resent Advance Directives Patient Director Labor Standards Explanation Type Date Recorded Advance 05/22/2013 12:12 PM Directive/DPOA
--- OUTSIDE RECORDS SUMMARY | 2019-04-24 11:59 | XMS REPORT | Continuity of Care Document ---
Author Organization Unknown Address Unknown Phone Unavailable Allergies Active Description Code Type Severity Reaction Onset Reported/Identified Relationship to Patient Clinical Status Yes TAPE TAPE Mild N/A 07/24/2009 Yes prednisone [id number] Drug Allergy Unknown N/A 01/21/2010 Yes ranitidine [id number] Drug Allergy Unknown N/A 01/21/2010 Yes omeprazole [id number] Drug Allergy Moderate HIVES 03/08/2013 Yes fexofenadine [id number] Drug Allergy Unknown N/A 01/07/2015 Yes hydrochlorothiazide [id number] Drug Allergy Unknown N/A 01/07/2015 Yes irbesartan [id number] Drug Allergy Unknown N/A 01/07/2015 Yes carboplatin [id number] Drug Allergy Severe N/A 01/12/2019 Medications There is no data. Problems Date [...] MANAGEMENT 08/12/1020 AUTUMN LINN Ot Z79.899 OTHER JAIL (CURRENT) DRUG THERAPY 08/12/1020 AUTUMN LINN Ot [...] OF OVARIAN MALIGNANCY 06/26/2009 Ot V58.66 LONG-TERM (CURRENT) USE OF ASPIRIN 06/26/2009 Ot V58.69 OTH MED,LT,CURRENT USE 06/26/2009 Ot V67.2 CHEMOTHERAPY FOLLOW- UP 09/17/2009 Ot 723.1 CERVICALGIA 09/17/2009 Ot 723.5 TORTICOLLIS NOS 09/17/2009 Ot V10.43 HX OF OVARIAN MALIGNANCY 09/17/2009 Ot V45.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 09/17/2009 Ot V58.66 LONG-TERM (CURRENT) USE OF ASPIRIN 09/17/2009 Ot V58.69 OTH MED,LT,CURRENT USE 09/17/2009 Ot V67.2 CHEMOTHERAPY FOLLOW- UP 06/15/2012 Ot 585.3 CHRONIC KIDNEY DISEASE, STAGE III (MODER 06/15/2012 Ot V10.43 HX OF OVARIAN MALIGNANCY 06/15/2012 Ot V45.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 06/15/2012 Ot V58.69 OTH MED,LT,CURRENT USE 06/15/2012 Ot V58.81 FIT/ADJ VASCULAR CATHETER 06/15/2012 Ot V67.2 CHEMOTHERAPY FOLLOW- UP 12/07/2012 Ot 585.3 CHRONIC KIDNEY DISEASE, STAGE III (MODER 12/07/2012 Ot V10.43 HX OF OVARIAN MALIGNANCY 12/07/2012 Ot V45.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 12/07/2012 Ot V58.69 OTH MED,LT,CURRENT USE 12/07/2012 Ot V58.81 FIT/ADJ VASCULAR CATHETER 12/07/2012 Ot V67.2 CHEMOTHERAPY FOLLOW- UP 01/15/2013 RUDI BRISENO DO Ot 784.99 OTHER SYMPTOMS INVOLVING HEAD AND NECK 03/09/2013 TIMI PINZON, CARMELLA Dumas Ot 276.1 HYPOSMOLALITY 03/09/2013 TIMI PINZON, CARMELLA Dumas Ot 288.60 LEUKOCYTOSIS, UNSPECIFIED 03/09/2013 TIMI PINZON, CARMELLA Dumas Ot 401.9 HYPERTENSION NOS 03/09/2013 CARMELLA CAPELLAN MD Ot 784.2 SWELLING IN HEAD NECK 03/09/2013 CARMELLA CAPELLAN MD Ot 995.1 ANGIONEUROTIC EDEMA 03/15/2013 AUUTMN LINN Ot 585.3 CHRONIC KIDNEY DISEASE, STAGE III (MODER 03/15/2013 AUTUMN LINN Ot V10.43 HX OF OVARIAN MALIGNANCY 03/15/2013 AUTUMN LINN Ot V45.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 03/15/2013 AUTUMN LINN Ot V58.69 OTH MED,LT,CURRENT USE 03/15/2013 AUTUMN LINN Ot V58.81 FIT/ADJ VASCULAR CATHETER 03/15/2013 AUTUMN LINN Ot V67.2 CHEMOTHERAPY FOLLOW-UP 04/05/2013 MECHELLE GREER MECHANICAL ENGINEERING INTERN Ot 250.00 DIAB BABAK WO COMPL, TYPE II OR UNSPEC TY 04/05/2013 MECHELLE GREER MECHANICAL ENGINEERING INTERN Ot 272.0 PURE HYPERCHOLESTEROLEM 04/05/2013 MECHELLE GREER MECHANICAL ENGINEERING INTERN Ot 401.9 HYPERTENSION NOS 04/05/2013 MECHELLE GREER MECHANICAL ENGINEERING INTERN Ot 995.1 ANGIONEUROTIC EDEMA 04/05/2013 MECHELLE GREER MECHANICAL ENGINEERING INTERN Ot V58.66 LONG-TERM (CURRENT) USE OF ASPIRIN 04/05/2013 MECHELLE GREER MECHANICAL ENGINEERING INTERN Ot V58.69 OTH MED,LT,CURRENT USE 07/19/2013 AUTUMN [...] Ot V10.43 HX OF OVARIAN MALIGNANCY 11/06/2013 AUTUMN LINN N Ot V45.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 11/06/2013 KAVEHAUTUMN TURNER N Ot V58.69 OTH MED,LT,CURRENT USE 11/06/2013 KAVEHAUTUMN N Ot V58.81 FIT/ADJ VASCULAR CATHETER 11/06/2013 KAVEHAUTUMN TURNER N Ot V67.2 CHEMOTHERAPY FOLLOW-UP 03/13/2014 KAVEH AUTUMN N Ot 585.3 CHRONIC KIDNEY DISEASE, STAGE III (MODER 03/13/2014 KAVEHAUTUMN TURNER N Ot V10.43 HX OF OVARIAN MALIGNANCY 03/13/2014 KAVEHAUTUMN N Ot V45.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 03/13/2014 AUTUMN LINN N Ot V58.69 OTH MED,LT,CURRENT USE 03/13/2014 KAVEHAUTUMN N Ot V58.81 FIT/ADJ VASCULAR CATHETER 03/13/2014 KAVEHAUTUMN N Ot V67.2 CHEMOTHERAPY FOLLOW-UP 07/18/2014 KAVEHAUTUMN N Ot 585.3 CHRONIC KIDNEY DISEASE, STAGE III (MODER 07/18/2014 KAVEHAUTUMN TURNER N Ot V10.43 HX OF OVARIAN MALIGNANCY 07/18/2014 KAVEH, AUTUMN N Ot V45.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 07/18/2014 AUTUMN LINN N Ot V58.69 OTH MED,LT,CURRENT USE 07/18/2014 KAVEHAUTUMN TURNER N Ot V58.81 FIT/ADJ VASCULAR CATHETER 07/18/2014 KAVEHAUTUMN N Ot V67.2 CHEMOTHERAPY FOLLOW-UP 08/17/2014 YARY PINZON FAC, ALI FACP CCDS Ot 272.4 08/17/2014 YARY PINZON FACC, ALI FACP CCDS Ot 414.00 08/27/2014 KAVEHAUTUMN TURNER N Ot 585.3 08/27/2014 KAVEHAUTUMN TURNER N Ot V10.43 08/27/2014 KAVEH BOBEZE N Ot V45.77 08/27/2014 KAVEHAUTUMN N Ot V58.69 08/27/2014 KAVEHAUTUMN N Ot V58.81 08/27/2014 KAVEHAUTUMN N Ot V67.2 08/28/2014 KAVEH, BOBAN N Ot 585.3 08/28/2014 KAVEH, BOBAN N Ot V10.43 08/28/2014 KAVEH, BOBAN N Ot V45.77 08/28/2014 KAVEH, BOBAN N Ot V58.69 08/28/2014 KAEVH, BOBAN N Ot V58.81 08/28/2014 KAVEH, BOBAN N Ot V67.2 10/11/2014 KAVEH, BOBEZE N Ot 585.3 10/11/2014 KAVEH, AUTUMN N Ot V10.43 10/11/2014 KAVEH, BOBAN N Ot V45.77 10/11/2014 KAVEH, BOBAN N Ot V58.69 10/11/2014 KAVEH, BOBEZE N Ot V58.81 10/11/2014 KAVEH, AUTUMN N Ot V67.2 11/01/2014 KAVEH, BOBEZE N Ot 585.3 11/01/2014 KAVEH, BOBEZE N Ot V10.43 11/01/2014 KAVEH, BOBEZE N Ot V45.77 11/01/2014 KAVEH, BOBEZE N Ot V58.69 11/01/2014 KAVEH, BOBAN N Ot V58.81 11/01/2014 KAVEH, BOBEZE N Ot V67.2 11/25/2014 KAVEH, AUTUMN N Ot 585.3 CHRONIC KIDNEY DISEASE, STAGE III (MODER 11/25/2014 KAVEHAUTUMN TURNER N Ot V10.43 HX OF OVARIAN MALIGNANCY 11/25/2014 MANAS LINNAN N Ot V45.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 11/25/2014 AUTUMN LINN N Ot V58.69 OTH MED,LT,CURRENT USE 11/25/2014 KAVEH BOBAN N Ot V58.81 FIT/ADJ VASCULAR CATHETER 11/25/2014 KAVEHAUTUMN N Ot V67.2 CHEMOTHERAPY FOLLOW-UP 12/31/2014 KAVEH BOBAN N Ot 585.3 12/31/2014 KAVEH BOBAN N Ot V10.43 12/31/2014 KAVEH BOBAN N Ot V45.77 12/31/2014 KAVEH BOBAN N Ot V58.69 12/31/2014 KAVEH BOBAN N Ot V58.81 12/31/2014 KAVEH, BOBAN [...] 455.0 INT HEMORRHOID W/O COMPL 02/07/2015 MIQUEL STRATTON MD Ot 562.10 DIVERTICULOSIS COLON (W/O MENT OF HEMORR 02/07/2015 MIQUEL STRATTON MD Ot 715.35 LOC OSTEOARTH NOS-PELVIS 02/09/2015 GARDENIA KESSLER DO Ot 789.30 02/11/2015 KAVEH, BOBAN N Ot 585.3 02/11/2015 KAVEH, BOBAN N Ot V10.43 02/11/2015 KAVEH, BOBEZE N Ot V45.77 02/11/2015 KAVEH, BOBEZE N Ot V58.69 02/11/2015 KAVEH, BOBAN N Ot V58.81 02/11/2015 KAVEH, BOBEZE N Ot V67.2 03/06/2015 ALVARADO DHARMESH S RF TEST ENGINEER Ot 585.3 03/06/2015 ALVARADO CHARLESAH S RF TEST ENGINEER Ot V10.43 03/06/2015 ALVARADO HILAH S RF TEST ENGINEER Ot V45.77 03/06/2015 ALVARADO HILAH S RF TEST ENGINEER Ot V58.69 03/06/2015 ALVARADO HILAH S RF TEST ENGINEER Ot V58.81 03/06/2015 ALVARADO HILAH S RF TEST ENGINEER Ot V67.2 03/07/2015 VIRAL PINZON, TAKAAKI Ot 789.30 03/07/2015 VIRAL PINZON, PAMAAKAROL Ot V10.43 03/07/2015 VIRAL PINZON, TAKAAKI Ot V72.63 03/07/2015 VIRAL PINZON, TAKAAKI Ot V74.8 03/14/2015 SAMI PINZON, YO R Ot 250.00 03/19/2015 KAVEH BOBEZE N Ot 585.3 03/19/2015 KAVEH, BOBEZE N Ot V10.43 03/19/2015 KAVEH, BOBEZE N Ot V45.77 03/19/2015 KAVEH BOBEZE N Ot V58.69 03/19/2015 KAVEH, BOBEZE N Ot V58.81 03/19/2015 KAVEH, BOBEZE N Ot V67.2 03/31/2015 KAVEH BOBAN N Ot 585.3 CHRONIC KIDNEY DISEASE, STAGE III (MODER 03/31/2015 KAVEHAUTUMN N Ot V10.43 HX OF OVARIAN MALIGNANCY 03/31/2015 KAVEHAUTUMN TURNER N Ot V45.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 03/31/2015 KAVEHAUTUMN N Ot V58.69 OTH MED,LT,CURRENT USE 03/31/2015 KAVEHAUTUMN N Ot V58.81 FIT/ADJ VASCULAR CATHETER 03/31/2015 KAVEH, BOBAN N Ot V67.2 CHEMOTHERAPY FOLLOW-UP 04/02/2015 KAVEH, [...] BOBAN N Ot V58.69 04/27/2015 MECHELLE GREER MECHANICAL ENGINEERING INTERN Ot 250.00 DIAB BABAK WO COMPL, TYPE II OR UNSPEC TY 04/27/2015 MECHELLE GREER MECHANICAL ENGINEERING INTERN Ot 724.5 BACKACHE NOS 05/10/2015 DHARMESH ALVARADO RF TEST ENGINEER Ot 183.0 05/10/2015 DHARMESH ALVARADO RF TEST ENGINEER Ot 198.2 05/10/2015 DHARMESH ALVARADO RF TEST ENGINEER Ot 357.6 05/10/2015 DHARMESH ALVARADO RF TEST ENGINEER Ot 528.9 05/10/2015 DHARMESH ALVARADO RF TEST ENGINEER Ot 585.3 05/10/2015 DHARMESH ALVARADO RF TEST ENGINEER Ot 787.91 05/10/2015 DHARMESH ALVARADO RF TEST ENGINEER Ot E849.7 05/10/2015 DHARMESH ALVARADO RF TEST ENGINEER Ot E933.1 05/10/2015 DHARMESH ALVARADO RF TEST ENGINEER Ot V58.69 05/10/2015 DHARMESH ALVARADO RF TEST ENGINEER Ot V88.01 05/14/2015 SAMI PINZON, YO R Ot 199.0 MALIG ARELI DISSEMINATED 05/14/2015 SAMI PINZON, YO R Ot 250.00 DIAB BABAK WO COMPL, TYPE II OR UNSPEC TY 05/14/2015 SAMI PINZON, YO R Ot 285.9 ANEMIA NOS 05/14/2015 SAMI PINZON, YO R Ot 311 DEPRESSIVE DISORDER NEC 05/14/2015 SAMI PINZON, OY R Ot 333.81 BLEPHAROSPASM 05/14/2015 SAMI PINZON, YO R Ot 493.90 ASTHMA, UNSPECIFIED 05/14/2015 SAMI PINZON, YO R Ot 530.81 ESOPHAGEAL REFLUX 05/14/2015 SAMI PINZON, YO R Ot 564.09 OTHER CONSTIPATION 05/14/2015 SAMI PINZON, YO R Ot 715.09 GENERAL OSTEOARTHROSIS 05/14/2015 SAMI PINZON, YO R Ot 722.93 DISC DIS NEC/NOS-LUMBAR 05/14/2015 SAMI PINZON, YO R Ot 730.28 OSTEOMYELIT NOS-OTH SITE 05/14/2015 YO GALLARDO MD R Ot 733.13 PATHOLOGIC FRACTURE, VERTEBRAE 05/14/2015 SAMI PINZON, YO R Ot V10.43 HX OF OVARIAN MALIGNANCY 05/14/2015 SAMI PINZON, YO R Ot V12.79 PERSONAL HISTORY OTH SPEC DIGESTIVE SYST 05/14/2015 YO GALLARDO MD R Ot V15.82 HISTORY OF TOBACCO USE 05/14/2015 SAMI PINZON, YO R Ot V58.69 OTH MED,LT,CURRENT USE 05/14/2015 AUTUMN LINN Ot 183.0 05/14/2015 AUTUMN LINN Ot 585.3 05/14/2015 AUTUMN LINN Ot V45.77 05/14/2015 AUTUMN LINN Ot V58.11 05/14/2015 AUTUMN LINN N Ot V58.69 05/21/2015 SAMI PINZON, YO R Ot 276.8 05/22/2015 SAMI IPNZON, YO R Ot 276.8 05/23/2015 SAMI PINZON, YO R Ot 276.8 05/24/2015 SAMI PINZON, YO R Ot 276.8 05/25/2015 SAMI PINZON, YO R Ot 276.8 05/25/2015 SAMI PINZON, YO R Ot 276.8 05/26/2015 SAMI PINZON, YO R Ot 276.8 05/27/2015 SAMI PIZNON, YO R Ot 276.8 05/28/2015 SAMI PINZON, YO R Ot 276.8 05/29/2015 SAMI PINZON, YO R Ot 276.8 05/30/2015 SAMI PINZON, YO R Ot 276.8 05/30/2015 AUTUMN LINN Ot 183.0 05/30/2015 AUTUMN LINN Ot 585.3 05/30/2015 AUTUMN LINN N Ot V45.77 05/30/2015 AUTUMN LINN N Ot V58.11 05/30/2015 AUTUMN LINN N Ot [...] 183.0 MALIGN NEOPL OVARY 06/12/2015 AUTUMN LINN N Ot 585.3 CHRONIC KIDNEY DISEASE, STAGE III (MODER 06/12/2015 AUTUMN LINN Ot V45.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 06/12/2015 AUTUMN LINN Ot V58.11 ENCOUNTER FOR ANTINEOPLASTIC CHEMOTHERAP 06/12/2015 AUTUMN LINN Ot V58.69 OTH MED,LT,CURRENT USE 06/12/2015 YO GALLARDO MD R Ot 276.8 HYPOPOTASSEMIA 06/12/2015 YO GALLARDO MD R Ot 276.8 06/13/2015 YO GALLARDO MD R Ot 276.8 06/17/2015 YO GALLARDO MD Ot C56.9 MALIGNANT NEOPLASM OF UNSPECIFIED OVARY 06/17/2015 YO GALLARDO MD Ot C79.9 SECONDARY MALIGNANT NEOPLASM OF UNSPECIF 06/17/2015 YO GALLARDO MD R Ot E11.9 TYPE 2 DIABETES MELLITUS WITHOUT COMPLIC 06/17/2015 YO GALLARDO MD R Ot J18.9 PNEUMONIA, UNSPECIFIED ORGANISM 06/17/2015 YO GALLARDO MD Ot J44.9 CHRONIC OBSTRUCTIVE PULMONARY DISEASE, U 06/17/2015 YO GALLARDO MD Ot K21.9 GASTRO-ESOPHAGEAL REFLUX DISEASE WITHOUT 06/17/2015 YO GALLARDO MD R Ot M46.40 DISCITIS, UNSPECIFIED, SITE UNSPECIFIED 06/17/2015 YO GALLARDO MD Ot Z79.2 JAIL (CURRENT) USE OF ANTIBIOTICS 06/17/2015 YO GALLARDO MD R Ot Z87.891 PERSONAL HISTORY OF NICOTINE DEPENDENCE 06/18/2015 YO GALLARDO MD R Ot C56.9 06/18/2015 YO GALLARDO MD Ot C79.9 06/18/2015 YO GALLARDO MD Ot E11.9 06/18/2015 YO GALLARDO MD R Ot J18.9 06/18/2015 YO GALLARDO MD R Ot J44.9 06/18/2015 YO GALLARDO MD R Ot K21.9 06/18/2015 YO GALLARDO MD R Ot M46.40 06/18/2015 SAMI PINZON, YO R Ot Z79.2 06/18/2015 SAMI PINZON, YO R Ot Z87.891 06/18/2015 SAMI PINZON, YO R Ot C56.9 06/18/2015 SAMI PINZON, YO R Ot C79.9 06/18/2015 SAMI PINZON, YO R Ot E11.9 06/18/2015 SAMI PINZON, YO R Ot J18.9 06/18/2015 SAMI PINZON, YO R Ot J44.9 06/18/2015 SAMI PINZNO, YO R Ot K21.9 06/18/2015 SAMI PINZON, [...] YO R Ot 276.8 07/24/2015 DHARMESH ALVARADO RF TEST ENGINEER Ot C56.9 07/24/2015 CHARLES ALVARADOAH S RF TEST ENGINEER Ot C79.2 07/24/2015 DHARMESH ALVARADO RF TEST ENGINEER Ot N18.3 07/24/2015 ALVARADO DHARMESH Kc RF TEST ENGINEER Ot Z79.899 07/25/2015 KAVEHAUTUMN TURNER N Ot 183.0 07/25/2015 KAVEH, AUTUMN N Ot 585.3 07/25/2015 KAVEH, AUTUMN N Ot V45.77 07/25/2015 KAVEH, BOBEZE N Ot V58.11 07/25/2015 KAVEH, BOBAN N Ot V58.69 07/31/2015 ZO HOUSTON DO Ot R06.00 08/13/2015 SAMI PINZON, YO Mitchell Ot 276.8 08/30/2015 KAVEH, AUTUMN N Ot 183.0 08/30/2015 KAVEH, BOBEZE N Ot 585.3 08/30/2015 KAVEH, BOBAN N Ot V45.77 08/30/2015 KAVEH, AUTUMN N Ot V58.11 08/30/2015 KAVEH, MANASAN N Ot V58.69 09/11/2015 SAMI PINZON, YO R Ot M46.40 DISCITIS, UNSPECIFIED, SITE UNSPECIFIED 09/18/2015 KAVEH, BOBAN N Ot C56.2 09/18/2015 KAVEH, BOBAN N Ot C79.2 09/18/2015 KAVEH, BOBAN N Ot M46.40 09/18/2015 KAVEH, BOBEZE N Ot N18.3 09/18/2015 KAVEH, BOBAN N Ot Z79.899 09/18/2015 KAVEH, BOBAN N Ot Z92.21 10/30/2015 KAVEH, BOBAN N Ot 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 10/30/2015 KAVEH, BOBAN N Ot 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 10/30/2015 KAVEH, BOBAN N Ot M46.40 DISCITIS, UNSPECIFIED, SITE UNSPECIFIED 10/30/2015 KAVEH, BOBAN N Ot N18.3 CHRONIC KIDNEY DISEASE, STAGE 3 (MODERAT 10/30/2015 KAVEH, MANASAN N Ot Z79.899 OTHER JAIL (CURRENT) DRUG THERAPY 10/30/2015 KAVEHMANASAN N Ot Z92.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 ANTINEOPLASTIC CHEMO 11/14/2015 DHARMESH ALVARADO RF TEST ENGINEER Ot C56.2 11/14/2015 DHARMESH ALVARADO RF TEST ENGINEER Ot C79.2 11/14/2015 DHARMESH ALVARADO RF TEST ENGINEER Ot M46.40 11/14/2015 DHARMESH ALVARADO RF TEST ENGINEER Ot N18.3 11/14/2015 DHARMESH ALVARADO RF TEST ENGINEER Ot Z79.899 11/14/2015 DHARMESH ALVARADO RF TEST ENGINEER Ot Z92.21 11/15/2015 BAIJOJO LERMA RF TEST ENGINEER Ot E78.0 11/15/2015 BAIJOJO LERMA L RF TEST ENGINEER Ot I10 11/15/2015 BAIJOJO LERMA L RF TEST ENGINEER Ot I25.10 11/15/2015 BAIJOJO LERMA L RF TEST ENGINEER Ot I73.9 11/15/2015 BAIJOJO LERMA RF TEST ENGINEER Ot I77.9 01/03/2016 AUTUMN LINN N Ot 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40 DISCITIS, UNSPECIFIED, SITE UNSPECIFIED 03/10/2016 AUTUMN LINN N Ot N18.3 CHRONIC KIDNEY DISEASE, STAGE 3 (MODERAT 03/10/2016 KAVEHAUTUMN TURNER N Ot Z45.2 ENCOUNTER FOR ADJUSTMENT AND MANAGEMENT 03/10/2016 KAVEHAUTUMN TURNER N Ot Z79.899 OTHER FLEET MANAGER/DISPATCH (CURRENT) DRUG THERAPY 03/10/2016 AUTUMN LINN Ot [...] MANAGEMENT 04/17/2016 AUTUMN LINN Ot Z79.899 OTHER FLEET MANAGER/DISPATCH (CURRENT) DRUG THERAPY 04/17/2016 AUTUMN LINN Ot Z92.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 ANTINEOPLASTIC CHEMO 04/17/2016 YO GALLARDO MD R Ot E11.9 TYPE 2 DIABETES MELLITUS WITHOUT COMPLIC 04/17/2016 YO GALLARDO MD R Ot 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 [place] ART W 04/17/2016 YO GALLARDO MD R Ot E11.9 TYPE 2 DIABETES MELLITUS WITHOUT COMPLIC 04/17/2016 YO GALLARDO MD R Ot 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 [place] ART W 04/20/2016 YO GALLARDO MD R Ot E11.9 TYPE 2 DIABETES MELLITUS WITHOUT COMPLIC 04/20/2016 YO GALLARDO MD R Ot 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 [place] ART W 04/20/2016 YO GALLARDO MD R Ot E11.9 TYPE 2 DIABETES MELLITUS WITHOUT COMPLIC 04/20/2016 YO GALLARDO MD R Ot E78.4 OTHER HYPERLIPIDEMIA 04/20/2016 YO GALLARDO MD R Ot I10 ESSENTIAL (PRIMARY) HYPERTENSION 04/20/2016 YO GALLARDO MD R Ot 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 [place] ART W 04/20/2016 YO GALLARDO MD R Ot I73.9 PERIPHERAL VASCULAR DISEASE, UNSPECIFIED 04/23/2016 YO GALLARDO MD R Ot E11.9 TYPE 2 DIABETES MELLITUS WITHOUT COMPLIC 04/23/2016 SAMI PINZON, YO R Ot E78.4 OTHER HYPERLIPIDEMIA 04/23/2016 YO GALLARDO MD R Ot I10 ESSENTIAL (PRIMARY) HYPERTENSION 04/23/2016 MARINA GALLARDO MDYD R Ot 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 [place] ART W 04/23/2016 YO GALLARDO MD R Ot I73.9 PERIPHERAL VASCULAR DISEASE, UNSPECIFIED 04/24/2016 DHARMESH ALVARADO RF TEST ENGINEER Ot 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 04/24/2016 DHARMESH ALVARADO RF TEST ENGINEER Ot 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 04/24/2016 DHARMESH ALVARADO RF TEST ENGINEER Ot M46.40 DISCITIS, UNSPECIFIED, SITE UNSPECIFIED 04/24/2016 DHARMESH ALVARADO RF TEST ENGINEER Ot N18.3 CHRONIC KIDNEY DISEASE, STAGE 3 (MODERAT 04/24/2016 DHARMESH ALVARADO RF TEST ENGINEER Ot Z79.899 OTHER FLEET MANAGER/DISPATCH (CURRENT) DRUG THERAPY 04/24/2016 DHARMESH ALVARADO RF TEST ENGINEER Ot Z92.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 ANTINEOPLASTIC CHEMO 05/08/2016 SAMI PINZON, YO R Ot E11.9 TYPE 2 DIABETES MELLITUS WITHOUT COMPLIC 05/08/2016 YO GALLARDO MD R Ot E78.4 OTHER HYPERLIPIDEMIA 05/08/2016 YO GALLARDO MD R Ot I10 ESSENTIAL (PRIMARY) HYPERTENSION 05/08/2016 YO GALLARDO MD R Ot 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 [place] ART W 05/08/2016 YO GALLARDO MD R Ot I73.9 PERIPHERAL VASCULAR DISEASE, UNSPECIFIED 05/15/2016 DHARMESH ALVARADO RF TEST ENGINEER Ot 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 05/15/2016 DHARMESH ALVARADO RF TEST ENGINEER Ot 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 05/15/2016 DHARMESH ALVARADO RF TEST ENGINEER Ot M46.40 DISCITIS, UNSPECIFIED, SITE UNSPECIFIED 05/15/2016 DHARMESH ALVARADO RF TEST ENGINEER Ot N18.3 CHRONIC KIDNEY DISEASE, STAGE 3 (MODERAT 05/15/2016 DHARMESH ALVARADO S RF TEST ENGINEER Ot Z79.899 OTHER JAIL (CURRENT) DRUG THERAPY 05/15/2016 ALVARADO, HILAH S RF TEST ENGINEER Ot Z92.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 ANTINEOPLASTIC CHEMO 06/04/2016 KAVEH, BOBAN N Ot 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 06/04/2016 KAVEH, BOBAN N Ot 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 06/04/2016 KAVEH, BOBAN N Ot M46.40 DISCITIS, UNSPECIFIED, SITE UNSPECIFIED 06/04/2016 KAVEH, BOBAN N Ot N18.3 CHRONIC KIDNEY DISEASE, STAGE 3 (MODERAT 06/04/2016 KAVEH BOBAN N Ot Z45.2 ENCOUNTER FOR ADJUSTMENT AND MANAGEMENT 06/04/2016 KAVEH, BOBAN N Ot Z79.899 OTHER FLEET MANAGER/DISPATCH (CURRENT) DRUG THERAPY 06/04/2016 KAVEH, BOBAN N Ot Z92.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 ANTINEOPLASTIC CHEMO 06/13/2016 SAMI PINZON, YO R Ot 276.8 HYPOPOTASSEMIA 06/22/2016 KAVEH, BOBAN N Ot 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 06/22/2016 KAVEH, BOBAN N Ot 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 06/22/2016 KAVEH, BOBAN N Ot M46.40 DISCITIS, UNSPECIFIED, SITE UNSPECIFIED 06/22/2016 KAVEH, BOBAN N Ot N18.3 CHRONIC KIDNEY DISEASE, STAGE 3 (MODERAT 06/22/2016 KAVEH, BOBAN N Ot Z45.2 ENCOUNTER FOR ADJUSTMENT AND MANAGEMENT 06/22/2016 KAVEH, BOBAN N Ot Z79.899 OTHER FLEET MANAGER/DISPATCH (CURRENT) DRUG THERAPY 06/22/2016 KAVEH, BOBAN N [...] 07/14/2016 KAVEH, BOBAN N Ot Z79.899 OTHER JAIL (CURRENT) DRUG THERAPY 07/14/2016 KAVEH, BOBAN N Ot Z92.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 ANTINEOPLASTIC CHEMO 07/16/2016 KAVEHAUTUMN N Ot 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 07/16/2016 KAVEHAUTUMN N Ot 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 07/16/2016 KAVEHAUTUMN N Ot M46.40 DISCITIS, UNSPECIFIED, SITE UNSPECIFIED 07/16/2016 KAVEHAUTUMN N Ot N18.3 CHRONIC KIDNEY DISEASE, STAGE 3 (MODERAT 07/16/2016 KAVEHAUTUMN N Ot Z45.2 ENCOUNTER FOR ADJUSTMENT AND MANAGEMENT 07/16/2016 KAVEHAUTUMN N Ot Z79.899 OTHER FLEET MANAGER/DISPATCH (CURRENT) DRUG THERAPY 07/16/2016 KAVEH BOBEZE N Ot Z92.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 ANTINEOPLASTIC CHEMO 08/13/2016 Ot 183.0 09/10/2016 AUTUMN LINN N Ot 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 09/10/2016 KAVEHAUTUMN N Ot 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 09/10/2016 KAVEHAUTUMN N Ot M46.40 DISCITIS, UNSPECIFIED, SITE UNSPECIFIED 09/10/2016 KAVEHAUTUMN N Ot N18.3 CHRONIC KIDNEY DISEASE, STAGE 3 (MODERAT 09/10/2016 KAVEH BOBEZE N Ot Z79.899 OTHER FLEET MANAGER/DISPATCH (CURRENT) DRUG THERAPY 09/10/2016 KAVEHAUTUMN N Ot Z92.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 ANTINEOPLASTIC CHEMO 10/13/2016 KAVEHAUTUMN N Ot 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 10/13/2016 KAVEHAUTUMN N Ot 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 10/13/2016 KAVEHAUTUMN N Ot M46.40 DISCITIS, UNSPECIFIED, SITE UNSPECIFIED 10/13/2016 KAVEHAUTUMN N Ot N18.3 CHRONIC KIDNEY DISEASE, STAGE 3 (MODERAT 10/13/2016 KAVEHAUTUMN N Ot Z45.2 ENCOUNTER FOR ADJUSTMENT AND MANAGEMENT 10/13/2016 KAVEH BOBAN N Ot Z79.899 OTHER FLEET MANAGER/DISPATCH (CURRENT) DRUG THERAPY 10/13/2016 KAVEHAUTUMN N Ot Z92.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 ANTINEOPLASTIC CHEMO 10/14/2016 KAVEHAUTUMN N Ot 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 10/14/2016 KAVEHAUTUMN N Ot 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 10/14/2016 KAVEHAUTUMN N Ot M46.40 DISCITIS, UNSPECIFIED, SITE UNSPECIFIED 10/14/2016 KAVEHAUTUMN TURNER N Ot N18.3 CHRONIC KIDNEY DISEASE, STAGE 3 (MODERAT 10/14/2016 KAVEHAUTUMN TURNER N Ot Z45.2 ENCOUNTER FOR ADJUSTMENT AND MANAGEMENT 10/14/2016 KAVEHAUTUMN N Ot Z79.899 OTHER JAIL (CURRENT) DRUG THERAPY 10/14/2016 KAVEH BOBAN N Ot Z92.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 ANTINEOPLASTIC CHEMO 11/24/2016 KAVEHAUTUMN N Ot 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 11/24/2016 KAVEHAUTUMN N Ot 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 11/24/2016 KAVEH BOBAN N Ot M46.40 DISCITIS, UNSPECIFIED, SITE UNSPECIFIED 11/24/2016 KAVEHAUTUMN N Ot N18.3 CHRONIC KIDNEY DISEASE, STAGE 3 (MODERAT 11/24/2016 KAVEHAUTUMN N Ot Z45.2 ENCOUNTER FOR ADJUSTMENT AND MANAGEMENT 11/24/2016 KAVEHAUTUMN N Ot Z79.899 OTHER FLEET MANAGER/DISPATCH (CURRENT) DRUG THERAPY 11/24/2016 KAVEH BOBAN N Ot Z92.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 ANTINEOPLASTIC CHEMO 12/12/2016 Ot 183.0 01/04/2017 KAVEHAUTUMN TURNER N Ot 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 01/04/2017 KAVEHAUTUMN N Ot 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 01/04/2017 KAVEHAUTUMN N Ot M46.40 DISCITIS, UNSPECIFIED, SITE UNSPECIFIED 01/04/2017 KAVEHAUTUMN N Ot N18.3 CHRONIC KIDNEY DISEASE, STAGE 3 (MODERAT 01/04/2017 KAVEHAUTUMN N Ot Z45.2 ENCOUNTER FOR ADJUSTMENT AND MANAGEMENT 01/04/2017 KAVEH BOBAN N Ot Z79.899 OTHER FLEET MANAGER/DISPATCH (CURRENT) DRUG THERAPY 01/04/2017 KAVEH BOBAN N Ot Z92.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 ANTINEOPLASTIC CHEMO 02/21/2017 KAVEHAUTUMN N Ot 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 02/21/2017 KAVEH, BOBAN N Ot 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 02/21/2017 KAVEHAUTUMN TURNER N Ot M46.40 DISCITIS, UNSPECIFIED, SITE UNSPECIFIED 02/21/2017 KAVEH BOBEZE N Ot N18.3 CHRONIC KIDNEY DISEASE, STAGE 3 (MODERAT 02/21/2017 AUTUMN LINN N Ot Z45.2 ENCOUNTER FOR ADJUSTMENT AND MANAGEMENT 02/21/2017 AUTUMN LINN N Ot Z79.899 OTHER FLEET MANAGER/DISPATCH (CURRENT) DRUG THERAPY 02/21/2017 AUTUMN LINN N Ot Z92.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 ANTINEOPLASTIC CHEMO 03/19/2017 KAVEHAUTUMN TURNER N Ot 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 03/19/2017 KAVEH, BOBEZE N Ot 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 03/19/2017 KAVEH BOBEZE N Ot M46.40 DISCITIS, UNSPECIFIED, SITE UNSPECIFIED 03/19/2017 AUTUMN LINN N Ot N18.3 CHRONIC KIDNEY DISEASE, STAGE 3 (MODERAT 03/19/2017 KAVEHAUTUMN N Ot Z79.899 OTHER FLEET MANAGER/DISPATCH (CURRENT) DRUG THERAPY 03/19/2017 KAVEHAUTUMN N Ot Z92.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 ANTINEOPLASTIC CHEMO 05/10/2017 AUTUMN LINN N Ot 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 05/10/2017 KAVEH BOBEZE N Ot 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 05/10/2017 KAVEH BOBEZE N Ot M46.40 DISCITIS, UNSPECIFIED, SITE UNSPECIFIED 05/10/2017 AUTUMN LINN N Ot N18.3 CHRONIC KIDNEY DISEASE, STAGE 3 (MODERAT 05/10/2017 KAVEH BOBAN N Ot Z79.899 OTHER FLEET MANAGER/DISPATCH (CURRENT) DRUG THERAPY 05/10/2017 KAVEH BOBAN N Ot Z92.21 PERSONAL HISTORY [...] 06/12/2017 KAVEH, BOBAN N Ot Z79.899 OTHER FLEET MANAGER/DISPATCH (CURRENT) DRUG THERAPY 06/12/2017 KAVEH, BOBAN N [...] 06/18/2017 KAVEH, BOBAN N Ot Z79.899 OTHER JAIL (CURRENT) DRUG THERAPY 06/18/2017 KAVEH, BOBAN N [...] 06/18/2017 KAVEH, BOBAN N Ot Z79.899 OTHER FLEET MANAGER/DISPATCH (CURRENT) DRUG THERAPY 06/18/2017 KAVEH, BOBAN N Ot Z92.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 ANTINEOPLASTIC CHEMO 08/06/2017 KAVEH, BOBAN N Ot 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 08/06/2017 KAVEH, BOBAN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 CHRONIC KIDNEY DISEASE, STAGE 3 (MODERAT 10/16/2018 AUTUMN LINN Ot Z79.899 OTHER JAIL (CURRENT) DRUG THERAPY 10/16/2018 AUTUMN LINN Ot Z92.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 ANTINEOPLASTIC CHEMO 10/18/2018 KVAEH, BOBAN N Ot 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 10/18/2018 AUTUMN LINN N Ot 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 10/18/2018 AUTUMN LINN N Ot D50.9 IRON DEFICIENCY ANEMIA, UNSPECIFIED 10/18/2018 AUTUMN LINN N Ot N18.3 CHRONIC KIDNEY DISEASE, STAGE 3 (MODERAT 10/18/2018 KAVEHAUTUMN TURNER N Ot Z79.899 OTHER JAIL (CURRENT) DRUG THERAPY 10/18/2018 AUTUMN LINN N Ot Z92.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 ANTINEOPLASTIC CHEMO 11/01/2018 AUTUMN LINN N Ot 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 11/01/2018 AUTUMN LINN N Ot 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 11/01/2018 AUTUMN LINN N Ot D50.9 IRON DEFICIENCY ANEMIA, UNSPECIFIED 11/01/2018 AUTUMN LINN N Ot N18.3 CHRONIC KIDNEY DISEASE, STAGE 3 (MODERAT 11/01/2018 KAVEHAUTUMN TURNER N Ot Z79.899 OTHER FLEET MANAGER/DISPATCH (CURRENT) DRUG THERAPY 11/01/2018 AUTUMN LINN N [...] 11/02/2018 AUTUMN LINN N Ot Z79.899 OTHER JAIL (CURRENT) DRUG THERAPY 11/02/2018 AUTUMN LINN N Ot Z92.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 ANTINEOPLASTIC CHEMO 11/04/2018 SAMI PINZON, YO R Ot Z29.8 ENCOUNTER FOR OTHER SPECIFIED PROPHYLACT 11/14/2018 YO GALLARDO MD Ot Z29.8 ENCOUNTER FOR OTHER SPECIFIED PROPHYLACT 12/02/2018 AUTUMN LINN N Ot 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 12/02/2018 AUTUMN LINN N Ot 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 12/02/2018 AUTUMN LINN N Ot D50.9 IRON DEFICIENCY ANEMIA, UNSPECIFIED 12/02/2018 KAVEHAUTUMN TURNER N Ot N18.3 CHRONIC KIDNEY DISEASE, STAGE 3 (MODERAT 12/02/2018 KAVEHAUTUMN TURNER N Ot Z45.2 ENCOUNTER FOR ADJUSTMENT AND MANAGEMENT 12/02/2018 KAVEHAUTUMN TURNER N Ot Z79.899 OTHER JAIL (CURRENT) DRUG THERAPY 12/02/2018 AUTUMN LINN N Ot Z92.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 ANTINEOPLASTIC CHEMO 12/03/2018 DHARMESH ALVARADO RF TEST ENGINEER Ot 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 12/03/2018 DHARMESH ALVARADO RF TEST ENGINEER Ot E86.0 DEHYDRATION 12/03/2018 DHARMESH ALVARADO RF TEST ENGINEER Ot K63.89 OTHER SPECIFIED DISEASES OF INTESTINE 12/03/2018 DHARMESH ALVARADO RF TEST ENGINEER Ot N18.3 CHRONIC KIDNEY DISEASE, STAGE 3 (MODERAT 12/03/2018 DHARMESH ALVARADO RF TEST ENGINEER Ot Z95.828 PRESENCE OF OTHER VASCULAR IMPLANTS [...] 12/06/2018 AUTUMN LINN N Ot Z79.899 OTHER FLEET MANAGER/DISPATCH (CURRENT) DRUG THERAPY 12/06/2018 AUTUMN LINN N Ot Z92.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 ANTINEOPLASTIC CHEMO 12/07/2018 AUTUMN LINN N Ot 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 12/07/2018 KAVEH, MANASEZE N Ot 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 12/07/2018 KAVEH MANASEZE N Ot D50.9 IRON DEFICIENCY ANEMIA, UNSPECIFIED 12/07/2018 AUTUMN LINN N Ot N18.3 CHRONIC KIDNEY DISEASE, STAGE 3 (MODERAT 12/07/2018 KAVEHAUTUMN TURNER N Ot Z45.2 ENCOUNTER FOR ADJUSTMENT AND MANAGEMENT 12/07/2018 KAVEH, MANASEZE N Ot Z79.899 OTHER JAIL (CURRENT) DRUG THERAPY 12/07/2018 KAVEH AUTUMN Alas Ot Z92.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 ANTINEOPLASTIC CHEMO 12/08/2018 KAVEH AUTUMN Alas Ot 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 12/08/2018 KAVEH AUTUMN Alas Ot 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 12/08/2018 KAVEH AUTUMN Alas Ot D50.9 IRON DEFICIENCY ANEMIA, UNSPECIFIED 12/08/2018 KAVEHAUTUMN Ot N18.3 CHRONIC KIDNEY DISEASE, STAGE 3 (MODERAT 12/08/2018 KAVEH AUTUMN Alas Ot Z45.2 ENCOUNTER FOR ADJUSTMENT AND MANAGEMENT 12/08/2018 KAVEH AUTUMN Alas Ot Z79.899 OTHER JAIL (CURRENT) DRUG THERAPY 12/08/2018 KAVEH AUTUMN Alas Ot Z92.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 ANTINEOPLASTIC CHEMO 12/26/2018 DHARMESH ALVARADO RF TEST ENGINEER Ot 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 12/26/2018 DHARMESH ALVARADO RF TEST ENGINEER Ot E86.0 DEHYDRATION 12/26/2018 DHARMESH ALVARADO RF TEST ENGINEER Ot K63.89 OTHER SPECIFIED DISEASES OF INTESTINE 12/26/2018 DHARMESH ALVARADO RF TEST ENGINEER Ot N18.3 CHRONIC KIDNEY DISEASE, STAGE 3 (MODERAT 12/26/2018 DHARMESH ALVARADO RF TEST ENGINEER Ot Z95.828 PRESENCE OF OTHER VASCULAR IMPLANTS AND 01/06/2019 AUTUMN LINN Ot C56.9 MALIGNANT NEOPLASM OF UNSPECIFIED OVARY 01/06/2019 AUTUMN LNIN Ot 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 01/06/2019 AUTUMN LINN Ot E78.00 PURE HYPERCHOLESTEROLEMIA, UNSPECIFIED 01/06/2019 AUTUMN LINN Ot 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 CHRONIC KIDNEY DISEASE W ST 01/06/2019 AUTUMN LINN Ot I25.10 ATHSCL HEART DISEASE OF [place] CORONARY 01/06/2019 AUTUMN LINN Ot I65.29 OCCLUSION AND STENOSIS OF UNSPECIFIED CA 01/06/2019 AUTUMN LINN Ot I73.9 PERIPHERAL VASCULAR DISEASE, UNSPECIFIED 01/06/2019 AUTUMN LINN Ot 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.4 DRUG-INDUCED INTERSTITIAL LUNG DISORDERS 01/06/2019 AUTUMN LINN Ot N18.3 CHRONIC KIDNEY DISEASE, STAGE 3 (MODERAT 01/06/2019 AUTUMN LINN Ot R00.0 TACHYCARDIA, UNSPECIFIED 01/06/2019 AUTUMN LINN Bishop Ot R09.02 HYPOXEMIA 01/06/2019 AUTUMN LINN Bishop Ot T45.1X5A ADVERSE EFFECT OF ANTINEOPLASTIC AND IMM 01/06/2019 AUTUMN LINN Bishop Ot Z95.5 PRESENCE OF CORONARY ANGIOPLASTY IMPLANT 01/12/2019 SAMI PINZON, YO R Ot M46.40 DISCITIS, UNSPECIFIED, SITE UNSPECIFIED 01/12/2019 BAIMA, JOJO L RF TEST ENGINEER Ot R06.02 SHORTNESS OF BREATH 01/21/2019 AUTUMN LINN Bishop Ot M79.89 OTHER SPECIFIED SOFT TISSUE DISORDERS 01/26/2019 BAIMA, JOJO L RF TEST ENGINEER Ot 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 CHRONIC KIDNEY DISEASE W ST 01/26/2019 BAIMA, JOJO L RF TEST ENGINEER Ot I25.10 ATHSCL HEART DISEASE OF [place] CORONARY 01/26/2019 BAIMA, JOJO L RF TEST ENGINEER Ot I34.0 NONRHEUMATIC MITRAL (VALVE) INSUFFICIENC 01/26/2019 BAIMA, JOJO L RF TEST ENGINEER Ot I65.29 OCCLUSION AND STENOSIS OF UNSPECIFIED CA 01/26/2019 BAIMA, JOJO L RF TEST ENGINEER Ot N18.3 CHRONIC KIDNEY DISEASE, STAGE 3 (MODERAT 01/26/2019 BAIMA, JOJO L RF TEST ENGINEER Ot R06.02 SHORTNESS OF BREATH 01/27/2019 BAIMA, JOJO L RF TEST ENGINEER Ot 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 CHRONIC KIDNEY DISEASE W ST 01/27/2019 BAIMA, JOJO L RF TEST ENGINEER Ot I25.10 ATHSCL HEART DISEASE OF [place] CORONARY 01/27/2019 BAIMA, JOJO L RF TEST ENGINEER Ot I34.0 NONRHEUMATIC MITRAL (VALVE) INSUFFICIENC 01/27/2019 BAIMA, JOJO L RF TEST ENGINEER Ot I65.29 OCCLUSION AND STENOSIS OF UNSPECIFIED CA 01/27/2019 BAIMA, JOJO L RF TEST ENGINEER Ot N18.3 CHRONIC KIDNEY DISEASE, STAGE 3 (MODERAT 01/27/2019 BAIMA, JOJO L RF TEST ENGINEER Ot R06.02 SHORTNESS OF BREATH 01/30/2019 KAVEH, AUTUMN Alas Ot 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 01/30/2019 KAVEH, AUTUMN Alas Ot 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 01/30/2019 AUTUMN LINN N Ot D50.9 IRON DEFICIENCY ANEMIA, UNSPECIFIED 01/30/2019 KAVEHAUTUMN TURNER N Ot E86.0 DEHYDRATION 01/30/2019 AUTUMN LINN N Ot K63.89 OTHER SPECIFIED DISEASES OF INTESTINE 01/30/2019 AUTUMN LINN N Ot N18.3 CHRONIC KIDNEY DISEASE, STAGE 3 (MODERAT 01/30/2019 AUTUMN LINN N Ot Z45.2 ENCOUNTER FOR ADJUSTMENT AND MANAGEMENT 01/30/2019 KAVEHAUTUMN TURNER N Ot Z79.899 OTHER JAIL (CURRENT) DRUG THERAPY 01/30/2019 KAVEHAUTUMN TURNER N Ot Z92.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 ANTINEOPLASTIC CHEMO 01/30/2019 AUTUMN LINN N Ot Z95.828 PRESENCE OF OTHER VASCULAR IMPLANTS AND 01/31/2019 KAVEHAUTUMN TURNER N Ot 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 01/31/2019 AUTUMN LINN N Ot 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 01/31/2019 AUTUMN LINN N Ot D50.9 IRON DEFICIENCY ANEMIA, UNSPECIFIED 01/31/2019 KAVEHAUTUMN N Ot E86.0 DEHYDRATION 01/31/2019 AUTUMN LINN N Ot K63.89 OTHER SPECIFIED DISEASES OF INTESTINE 01/31/2019 AUTUMN LINN N Ot N18.3 CHRONIC KIDNEY DISEASE, STAGE 3 (MODERAT 01/31/2019 AUTUMN LINN N Ot Z45.2 ENCOUNTER FOR ADJUSTMENT AND MANAGEMENT 01/31/2019 AUTUMN LINN N Ot Z79.899 OTHER FLEET MANAGER/DISPATCH (CURRENT) DRUG THERAPY 01/31/2019 AUTUMN LINN N Ot Z92.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 ANTINEOPLASTIC CHEMO 01/31/2019 AUTUMN LINN N Ot Z95.828 PRESENCE OF OTHER VASCULAR IMPLANTS AND 02/02/2019 AUTUMN LINN N Ot 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 02/02/2019 AUTUMN LINN N Ot 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 02/02/2019 AUTUMN LINN N Ot D50.9 IRON DEFICIENCY ANEMIA, UNSPECIFIED 02/02/2019 KAVEHAUTUMN N Ot E86.0 DEHYDRATION 02/02/2019 AUTUMN LINN N Ot K63.89 OTHER SPECIFIED DISEASES OF INTESTINE 02/02/2019 KAVEH AUTUMN Alas Ot N18.3 CHRONIC KIDNEY DISEASE, STAGE 3 (MODERAT 02/02/2019 KAVEH, AUTUMN Alas Ot Z45.2 ENCOUNTER FOR ADJUSTMENT AND MANAGEMENT 02/02/2019 AUTUMN LINN Bishop Ot Z79.899 OTHER JAIL (CURRENT) DRUG THERAPY 02/02/2019 KAVEH AUTUMN Alas Ot Z92.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 ANTINEOPLASTIC CHEMO 02/02/2019 KAVEH, AUTUMN Alas Ot Z95.828 PRESENCE OF OTHER VASCULAR IMPLANTS AND 02/02/2019 GEETHA JOJO L RF TEST ENGINEER Ot 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 CHRONIC KIDNEY DISEASE W ST 02/02/2019 ROGER INIGUEZHER L RF TEST ENGINEER Ot I25.10 ATHSCL HEART DISEASE OF [place] CORONARY 02/02/2019 ROGER INIGUEZHER L RF TEST ENGINEER Ot I34.0 NONRHEUMATIC MITRAL (VALVE) INSUFFICIENC 02/02/2019 GEETHA JOJO L RF TEST ENGINEER Ot I65.29 OCCLUSION AND STENOSIS OF UNSPECIFIED CA 02/02/2019 ROGER INIGUEZHER L RF TEST ENGINEER Ot N18.3 CHRONIC KIDNEY DISEASE, STAGE 3 (MODERAT 02/02/2019 GEETHA JOJO L RF TEST ENGINEER Ot R06.02 SHORTNESS OF BREATH 02/03/2019 KAVEH, AUTUMN Alas Ot 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 02/03/2019 KAVEH, AUTUMN Alas Ot 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 02/03/2019 KAVEH, AUTUMN Alas Ot D50.9 IRON DEFICIENCY ANEMIA, UNSPECIFIED 02/03/2019 AUTUMN LINN Ot E86.0 DEHYDRATION 02/03/2019 KAVEH, AUTUMN Alas Ot K63.89 OTHER SPECIFIED DISEASES OF INTESTINE 02/03/2019 KAVEH, AUTUMN Alas Ot N18.3 CHRONIC KIDNEY DISEASE, STAGE 3 (MODERAT 02/03/2019 KAVEHAUTUMN Ot Z45.2 ENCOUNTER FOR ADJUSTMENT AND MANAGEMENT 02/03/2019 KAVEH, AUTUMN Alas Ot Z79.899 OTHER JAIL (CURRENT) DRUG THERAPY 02/03/2019 KAVEH, AUTUMN Alas Ot Z92.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 ANTINEOPLASTIC CHEMO 02/03/2019 AUTUMN LINN Ot Z95.828 PRESENCE OF OTHER VASCULAR IMPLANTS AND 02/10/2019 AUTUMN LINN Ot M79.89 OTHER SPECIFIED SOFT TISSUE DISORDERS 02/26/2019 SAMI PINZON, YO R Ot M11.261 OTHER CHONDROCALCINOSIS, RIGHT KNEE 02/26/2019 SAMI PINZON, YO R Ot M16.11 UNILATERAL PRIMARY OSTEOARTHRITIS, RIGHT 03/02/2019 AUTUMN LINN N Ot 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 03/02/2019 AUTUMN LINN N Ot 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 03/02/2019 AUTUMN LINN N Ot D50.9 IRON DEFICIENCY ANEMIA, UNSPECIFIED 03/02/2019 AUTUMN LINN N Ot N18.3 CHRONIC KIDNEY DISEASE, STAGE 3 (MODERAT 03/02/2019 AUTUMN LINN N Ot Z51.11 ENCOUNTER FOR ANTINEOPLASTIC CHEMOTHERAP 03/02/2019 AUTUMN LINN N Ot Z79.899 OTHER FLEET MANAGER/DISPATCH (CURRENT) DRUG THERAPY 03/02/2019 AUTUMN LINN N Ot Z92.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 ANTINEOPLASTIC CHEMO 03/03/2019 AUTUMN LINN N Ot 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 03/03/2019 AUTUMN LINN N Ot 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 03/03/2019 AUTUMN LINN N Ot D50.9 IRON DEFICIENCY ANEMIA, UNSPECIFIED 03/03/2019 AUTUMN LINN N Ot N18.3 CHRONIC KIDNEY DISEASE, STAGE 3 (MODERAT 03/03/2019 KAVEHAUTUMN TURNER N Ot Z51.11 ENCOUNTER FOR ANTINEOPLASTIC CHEMOTHERAP 03/03/2019 AUTUMN LINN N Ot Z79.899 OTHER FLEET MANAGER/DISPATCH (CURRENT) DRUG THERAPY 03/03/2019 AUTUMN LINN N Ot Z92.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 ANTINEOPLASTIC CHEMO 03/17/2019 SAMI PINZON, YO R Ot M11.261 OTHER CHONDROCALCINOSIS, RIGHT KNEE 03/17/2019 SAMI PINZON, YO R Ot M16.11 UNILATERAL PRIMARY OSTEOARTHRITIS, RIGHT 03/20/2019 DHARMESH ALVARADO RF TEST ENGINEER Ot C56.9 MALIGNANT NEOPLASM OF UNSPECIFIED OVARY 03/20/2019 DHARMESH ALVARADO RF TEST ENGINEER Ot R19.01 RIGHT UPPER QUADRANT ABDOMINAL SWELLING, 04/07/2019 DHARMESH ALVARADO RF TEST ENGINEER Ot C56.9 MALIGNANT NEOPLASM OF UNSPECIFIED OVARY 04/07/2019 ALVARADODHARMESH RF TEST ENGINEER Ot R19.01 RIGHT UPPER QUADRANT ABDOMINAL SWELLING, Procedures Code Description Performed By Performed On [...] PERITONEAL TISS 03/28/2008 65.61 OTH REMOVE BOTH OVARIES/TUBES 03/28/2008 80.39 JOINT BIOPSY NEC 05/08/2015 Results Test Result Range Lipid 1996 panel - 04/17/16 09:50 Serum or plasma triglyceride measurement (mass/volume) 91 mg/dL <150 Serum or plasma cholesterol measurement (mass/volume) 178 mg/dL < 200 Serum or plasma cholesterol in HDL measurement (mass/volume) 59 mg/dL 40-60 Cholesterol in LDL [mass/volume] in serum or plasma by direct assay 98 mg/dL 1-129 Serum or plasma cholesterol in VLDL measurement (mass/volume) 18 mg/dL 5-40 Hemoglobin A1c - 04/17/16 09:50 Hemoglobin A1c 5.7 % 4.5-6.2 Influenza virus A and B antigen detection - 06/29/18 12:19 FLU RESULT NEGATIVE FOR INFLUENZA A AND B ANTIGENS BY [facility] Complete blood count (CBC) with automated [...] Automated erythrocyte mean corpuscular hemoglobin concentration measurement (mass/volume) 34 g/dL 32-36 Automated erythrocyte distribution width ratio 17.9 % 10.0- 14.5 Automated blood platelet count (count/volume) 308 10*3/uL [...] Blood monocytes automated count (number/volume) 2.1 10*3 0.0- 1.0 Automated eosinophil count 0.0 10*3/uL 0.0-0.3 Automated blood basophil count (count/volume) 0.0 10*3/uL 0.0-0.1 Serum heterophile antibody titer - 06/29/18 12:43 Serum heterophile antibody titer NEGATIVE NEGATIVE Blood lactic acid measurement (moles/volume) - 06/29/18 12:43 Blood lactic acid measurement (moles/volume) 1.12 mmol/L 0.50- 2.00 Fibrin D-dimer FEU measurement in platelet poor plasma (mass/volume) - 06/29/18 12:43 Fibrin D-dimer FEU measurement in platelet [...] Serum or plasma aspartate aminotransferase measurement (enzymatic activity/volume) 19 U/L 5-34 Serum or plasma alanine aminotransferase measurement (enzymatic activity/volume) 16 U/L 0-55 Serum or plasma protein [...] Automated erythrocyte mean corpuscular hemoglobin concentration measurement (mass/volume) 33 g/dL 32-36 Automated erythrocyte distribution width ratio 18.3 % 10.0- 14.5 Automated blood platelet count (count/volume) 251 10*3/uL [...] Blood monocytes automated count (number/volume) 1.6 10*3 0.0- 1.0 Automated eosinophil count 0.0 10*3/uL 0.0-0.3 Automated [...] Blood lactic acid measurement (moles/volume) 0.88 mmol/L 0.50- 2.00 Arterial blood gas measurement - 06/30/18 13:31 Blood pCO2 31 mm[Hg] 35-45 Blood pO2 73 mm[Hg] 79-93 Arterial blood bicarbonate measurement (moles/volume) 19 mmol/L 23-27 Arterial blood base excess by calculation -5.5 mmol/L -2.5-2.5 Arterial blood oxygen saturation measurement 96 % 94-100 * Inhaled oxygen flow rate RM AIR NRG Arterial blood pH measurement with patient temperature correction 7.39 7.37-7.43 Arterial blood carbon dioxide, total measurement (moles/volume) 19.5 mmol/L 21.0-31.0 Body site R RAD NRG Assessment of wrist artery patency prior to arterial puncture YES-POS NRG Setting of ventilation mode NO NRG [...] Automated erythrocyte mean corpuscular hemoglobin concentration measurement (mass/volume) 33 g/dL 32-36 Automated erythrocyte distribution width ratio 18.5 % 10.0- 14.5 Automated blood platelet count (count/volume) 287 10*3/uL [...] Blood monocytes automated count (number/volume) 1.4 10*3 0.0- 1.0 Automated eosinophil count 0.1 10*3/uL 0.0-0.3 Automated [...] Serum or plasma aspartate aminotransferase measurement (enzymatic activity/volume) 28 U/L 5-34 Serum or plasma alanine aminotransferase measurement (enzymatic activity/volume) 18 U/L 0-55 Serum or plasma protein [...] gravity of urine by test strip 1.010 1.016-1.022 Urine protein assay by test strip, semi-quantitative [...] sediment leukocyte count by microscopy (number/high power field) [HPF] NRG Bacteria detection in urine sediment [...] Automated erythrocyte mean corpuscular hemoglobin concentration measurement (mass/volume) 32 g/dL 32-36 Automated erythrocyte distribution width ratio 18.8 % 10.0- 14.5 Automated blood platelet count (count/volume) 307 10*3/uL [...] Blood monocytes automated count (number/volume) 0.8 10*3 0.0- 1.0 Automated eosinophil count 0.2 10*3/uL 0.0-0.3 Automated [...] Serum or plasma aspartate aminotransferase measurement (enzymatic activity/volume) 26 U/L 5-34 Serum or plasma alanine aminotransferase measurement (enzymatic activity/volume) 16 U/L 0-55 Serum or plasma protein [...] Automated erythrocyte mean corpuscular hemoglobin concentration measurement (mass/volume) 33 g/dL 32-36 Automated erythrocyte distribution width ratio 18.8 % 10.0- 14.5 Automated blood platelet count (count/volume) 289 10*3/uL [...] Blood monocytes automated count (number/volume) 0.8 10*3 0.0- 1.0 Automated eosinophil count 0.2 10*3/uL 0.0-0.3 Automated [...] Serum or plasma aspartate aminotransferase measurement (enzymatic activity/volume) 25 U/L 5-34 Serum or plasma alanine aminotransferase measurement (enzymatic activity/volume) 17 U/L 0-55 Serum or plasma protein [...] Automated erythrocyte mean corpuscular hemoglobin concentration measurement (mass/volume) 33 g/dL 32-36 Automated erythrocyte distribution width ratio 18.9 % 10.0- 14.5 Automated blood platelet count (count/volume) 346 10*3/uL [...] Blood monocytes automated count (number/volume) 0.9 10*3 0.0- 1.0 Automated eosinophil count 0.1 10*3/uL 0.0-0.3 Automated [...] Serum or plasma aspartate aminotransferase measurement (enzymatic activity/volume) 26 U/L 5-34 Serum or plasma alanine aminotransferase measurement (enzymatic activity/volume) 20 U/L 0-55 Serum or plasma protein [...] Automated erythrocyte mean corpuscular hemoglobin concentration measurement (mass/volume) 31 g/dL 32-36 Automated erythrocyte distribution width ratio 14.2 % 10.0- 14.5 Automated blood platelet count (count/volume) 322 10*3/uL [...] Blood monocytes automated count (number/volume) 0.0 10*3 0.0- 1.0 Automated eosinophil count 0.0 10*3/uL 0.0-0.3 Automated [...] plasma calcium measurement (mass/volume) 9.4 mg/dL 8.5-10.1 Complete blood count (CBC) with automated white blood cell (WBC) differential - 01/06/19 05:15 Blood leukocytes automated count (number/volume) 6.8 10*3/uL 4.3-11.0 Blood erythrocytes automated count (number/volume) 3.64 10*6/uL 4.35-5.85 Venous blood hemoglobin measurement (mass/volume) 9.8 g/dL 11.5-16.0 Blood hematocrit (volume fraction) 31 % 35-52 Automated erythrocyte mean corpuscular volume 85 [foz_us] 80-99 Automated erythrocyte mean corpuscular hemoglobin (mass per erythrocyte) 27 pg 25-34 Automated erythrocyte mean corpuscular hemoglobin concentration measurement (mass/volume) 32 g/dL 32-36 Automated erythrocyte distribution width ratio 15.5 % 10.0- 14.5 Automated blood platelet count (count/volume) 215 10*3/uL 130-400 Automated blood platelet mean volume measurement 8.9 [foz_us] 7.4-10.4 Automated blood neutrophils/100 leukocytes 93 % 42-75 Automated blood lymphocytes/100 leukocytes 6 % 12-44 Blood monocytes/100 leukocytes 1 % 0-12 Automated blood eosinophils/100 leukocytes 0 % 0-10 Automated blood basophils/100 leukocytes 0 % 0-10 Blood neutrophils automated count (number/volume) 6.4 10*3 1.8-7.8 Blood lymphocytes automated count (number/volume) 0.4 10*3 1.0-4.0 Blood monocytes automated count (number/volume) 0.1 10*3 0.0- 1.0 Automated eosinophil count 0.0 10*3/uL 0.0-0.3 Automated blood basophil count (count/volume) 0.0 10*3/uL 0.0-0.1 Whole blood basic metabolic panel - 01/06/19 05:15 Serum or plasma sodium measurement (moles/volume) 136 mmol/L 135-145 Serum or plasma potassium measurement (moles/volume) 4.2 mmol/L 3.6-5.0 Serum or plasma chloride measurement (moles/volume) 106 mmol/L 98-107 Carbon dioxide 21 mmol/L 21-32 Serum or plasma anion gap determination (moles/volume) 9 mmol/L 5-14 Serum or plasma urea nitrogen measurement (mass/volume) 21 mg/dL 7-18 Serum or plasma creatinine measurement (mass/volume) 1.03 mg/dL 0.60-1.30 Serum or plasma urea nitrogen/creatinine mass ratio 20 NRG Serum or plasma creatinine measurement with calculation of estimated glomerular filtration rate 50 NRG Serum or plasma glucose measurement (mass/volume) 197 mg/dL 70-105 Serum or plasma calcium measurement (mass/volume) 8.9 mg/dL 8.5-10.1 Magnesium - 01/06/19 05:15 Magnesium 1.6 mg/dL 1.8-2.4 Blood manual differential performed detection - 01/06/19 05:15 Blood monocytes/100 leukocytes 1 % NRG Manual blood segmented neutrophils/100 leukocytes 94 % NRG Manual blood lymphocytes/100 leukocytes 5 % NRG Blood hypochromia detection by light microscopy SLIGHT NRG Complete blood count (CBC) with automated white blood cell (WBC) differential - 03/23/19 13:11 Blood leukocytes automated count (number/volume) 7.0 10*3/uL 4.3-11.0 Blood erythrocytes automated count (number/volume) 3.82 10*6/uL 4.35-5.85 Venous blood hemoglobin measurement (mass/volume) 10.5 g/dL 11.5-16.0 Blood hematocrit (volume fraction) 34 % 35-52 Automated erythrocyte mean corpuscular volume 89 [foz_us] 80-99 Automated erythrocyte mean corpuscular hemoglobin (mass per erythrocyte) 28 pg 25-34 Automated erythrocyte mean corpuscular hemoglobin concentration measurement (mass/volume) 31 g/dL 32-36 Automated erythrocyte distribution width ratio 16.1 % 10.0- 14.5 Automated blood platelet count (count/volume) 295 10*3/uL 130-400 Automated blood platelet mean volume measurement 9.9 [foz_us] 7.4-10.4 Automated blood neutrophils/100 leukocytes 69 % 42-75 Automated blood lymphocytes/100 leukocytes 24 % 12-44 Blood monocytes/100 leukocytes 5 % 0-12 Automated blood eosinophils/100 leukocytes 2 % 0-10 Automated blood basophils/100 leukocytes 0 % 0-10 Blood neutrophils automated count (number/volume) 4.8 10*3 1.8-7.8 Blood lymphocytes automated count (number/volume) 1.7 10*3 1.0-4.0 Blood monocytes automated count (number/volume) 0.4 10*3 0.0- 1.0 Automated eosinophil count 0.1 10*3/uL 0.0-0.3 Automated blood basophil count (count/volume) 0.0 10*3/uL 0.0-0.1 Whole blood basic metabolic panel - 03/23/19 13:11 Serum or plasma sodium measurement (moles/volume) 135 mmol/L 135-145 Serum or plasma potassium measurement (moles/volume) 4.3 mmol/L 3.6-5.0 Serum or plasma chloride measurement (moles/volume) 99 mmol/L 98-107 Carbon dioxide 27 mmol/L 21-32 Serum or plasma anion gap determination (moles/volume) 9 mmol/L 5-14 Serum or plasma urea nitrogen measurement (mass/volume) 28 mg/dL 7-18 Serum or plasma creatinine measurement (mass/volume) 1.29 mg/dL 0.60-1.30 Serum or plasma urea nitrogen/creatinine mass ratio 22 NRG Serum or plasma creatinine measurement with calculation of estimated glomerular filtration rate 39 NRG Serum or plasma glucose measurement (mass/volume) 114 mg/dL 70-105 Serum or plasma calcium measurement (mass/volume) 9.7 mg/dL 8.5-10.1 Encounters ACCT No. Visit Date/Time Discharge Status Pt. Type Provider Facility Loc./Unit Complaint [id number] 03/31/2019 10:33:00 03/31/2019 23:59:59 CLS Outpatient AUTUMN LINN [facility] ONC PORT FLUSH LABS [id number] 03/17/2019 13:39:00 03/17/2019 23:59:59 CLS Outpatient DHARMESH ALVARADO RF TEST ENGINEER [facility] RAD OVARIAN CA [id number] 02/23/2019 12:09:00 02/23/2019 23:59:59 CLS Outpatient YO GALLARDO MD [facility] RAD R LEG PAIN [id number] 01/26/2019 13:17:00 01/30/2019 00:01:00 DIS Outpatient AUTUMN LINN [facility] ONC PORT FLUSH LABS [id number] 01/19/2019 13:03:00 01/19/2019 23:59:59 CLS Outpatient AUTUMN LINN [facility] RAD LT LEG SWELLING [id number] 01/05/2019 15:45:00 01/06/2019 11:03:00 DIS Inpatient AUTUMN LINN [facility] ICU CHEMO DRUG REACTION [id number] 12/01/2018 12:22:00 12/01/2018 23:59:59 CLS Outpatient DHARMESH ALVARADO RF TEST ENGINEER [facility] RAD OVARIAN CA [id number] 11/05/2018 00:21:00 11/05/2018 23:59:59 CLS Preadmit YO GALLARDO MD [facility] CR3 WELLNESS [id number] 10/17/2018 13:22:00 11/04/2018 00:01:00 DIS Outpatient YO GALLARDO MD [facility] CR3 WELLNESS [id number] 08/29/2018 09:58:00 10/16/2018 00:01:00 DIS Outpatient AUTUMN LINN [facility] ONC PORT FLUSH LABS [id number] 06/29/2018 14:24:00 07/04/2018 13:00:00 DIS Inpatient JULITA SHELTON DO [facility] 4TH PNA,ARF,HYPOXIA;POSS PE [id number] 06/03/2018 14:15:00 06/12/2018 00:01:00 DIS Outpatient AUTUMN LINN [facility] ONC PORT FLUSH LABS [id number] 06/03/2018 11:58:00 06/03/2018 23:59:59 CLS Outpatient MIQUEL STRATTON MD Via [facility] CARD HX OVARIAN CANCER,ANEMIA [id number] 05/18/2018 15:44:00 05/22/2018 00:01:00 DIS Outpatient AUTUMN LINN [facility] ONC [place] [id number] 01/10/2018 12:21:00 01/13/2018 00:01:00 DIS Outpatient AUTUMN LINN [facility] ONC [place] [facility] [id number] 11/17/2017 12:25:00 11/17/2017 23:59:59 CLS Outpatient JOJO INIGUEZ L RF TEST ENGINEER [facility] CARD I25.10 CAD [id number] 11/16/2017 07:06:00 11/16/2017 23:59:59 CLS Outpatient JOJO INIGUEZ L RF TEST ENGINEER Via [facility] CARD I25.10 CAD [id number] 11/11/2017 14:36:00 11/11/2017 23:59:59 CLS Preadmit JOJO INIGUEZ L RF TEST ENGINEER [facility] CARD I25.10 CAD [id number] 11/03/2017 09:44:00 11/03/2017 12:58:00 DIS Outpatient MIQUEL STRATTON MD [facility] ENDO ANEMIA [id number] 11/01/2017 05:48:00 11/01/2017 10:33:00 DIS Outpatient MIQUEL STRATTON MD [facility] PREOP COLONOSCOPY/EGD [id number] 09/02/2017 11:07:00 09/15/2017 00:01:00 DIS Outpatient AUTUMN LINN [facility] ONC [place] [facility] [id number] 06/10/2017 10:55:00 06/12/2017 00:01:00 DIS Outpatient AUTUMN LINN [facility] ONC [place] [facility] [id number] 02/04/2017 12:51:00 02/21/2017 00:01:00 DIS Outpatient AUTUMN LINN [facility] ONC [place] [facility] [id number] 10/05/2016 11:52:00 10/13/2016 00:01:00 DIS Outpatient AUTUMN LINN [facility] ONC [place] [facility] [id number] 05/29/2016 12:10:00 06/22/2016 10:21:00 DIS Outpatient AUTUMN LINN [facility] ONC [place] [facility] [id number] 04/23/2016 12:59:00 04/23/2016 23:59:59 CLS Outpatient DHARMESH ALVARADO RF TEST ENGINEER [facility] ONC [id number] 04/17/2016 09:32:00 04/17/2016 23:59:59 CLS Outpatient YO GALLARDO MD [facility] LAB [id number] 03/05/2016 10:38:00 03/10/2016 00:01:00 DIS Outpatient AUTUMN LINN [facility] ONC [place] [facility] [id number] 10/24/2015 13:37:00 10/30/2015 00:01:00 DIS Outpatient AUTUMN LINN [facility] ONC [place] [facility] [id number] 10/25/2015 09:43:00 10/25/2015 23:59:59 CLS Outpatient JOJO INIGUEZ RF TEST ENGINEER [facility] LAB [id number] 10/24/2015 13:40:00 10/24/2015 23:59:59 CLS Outpatient DHARMESH ALVARADOP [facility] ONC [id number] 09/12/2015 00:15:00 09/12/2015 23:59:59 CLS Preadmit YO GALLARDO MD Via [facility] [id number] 06/26/2015 09:59:00 09/11/2015 00:01:00 DIS Outpatient YO GALLARDO MD Via [facility] [id number] 07/10/2015 13:16:00 07/10/2015 23:59:59 CLS Outpatient ROSEMARIE AGUIRREZO [facility] RT DYSPNEA [id number] 07/01/2015 10:39:00 07/01/2015 23:59:59 CLS Outpatient DHARMESH ALVARADO RF TEST ENGINEER [facility] ONC [id number] 06/24/2015 13:19:00 06/24/2015 23:59:59 CLS Outpatient JESSICA ARREDONDO MD [facility] RAD LUMBAGO [id number] 06/15/2015 16:03:00 06/17/2015 14:30:00 DIS Inpatient YO GALLARDO MD [facility] 4TH DYSPNEA,CHEST WALL PAIN [id number] 06/12/2015 10:05:00 06/12/2015 00:01:00 DIS Outpatient YO GALLARDO MD [facility] SDC OSTEOMYELITIS [id number] 06/03/2015 10:38:00 06/12/2015 00:01:00 DIS Outpatient AUTUMN LINN [facility] ONC [place] [facility] [id number] 05/10/2015 11:00:00 05/14/2015 14:52:00 DIS Inpatient YO GALLARDO MD [facility] 4TH INTERACTABLE LBP,CA [id number] 04/27/2015 12:58:00 04/27/2015 15:53:00 DIS Emergency MECHELLE GREER MECHANICAL ENGINEERING INTERN [facility] ER BACK PAIN [id number] 04/16/2015 10:47:00 04/16/2015 23:59:59 CLS Outpatient DHARMESH ALVARADO RF TEST ENGINEER [facility] ONC [id number] 03/26/2015 08:45:00 03/31/2015 00:01:00 DIS Outpatient AUTUMN LINN [facility] ONC [place] [facility] [id number] 02/21/2015 10:34:00 02/21/2015 23:59:59 CLS Outpatient YO GALLARDO MD [facility] LAB [id number] 02/12/2015 09:46:00 02/12/2015 23:59:59 CLS Outpatient DHARMESH ALVARADO [facility] ONC [id number] 02/07/2015 06:00:00 02/07/2015 13:05:00 DIS Outpatient MIQUEL STRATTON MD [facility] SDC UMBILICAL MASS; HISTORY OF OVARIAN CANCER [id number] 02/06/2015 13:19:00 02/06/2015 23:59:59 CLS Outpatient MIQUEL STRATTON MD [facility] PREOP UMBILICAL MASS; HISTORY OF OVARIAN CANCER [id number] 01/07/2015 07:20:00 01/07/2015 23:59:59 CLS Outpatient GARDENIA KESSLER DO [facility] RAD ABDOMINAL WALL MASS [id number] 10/08/2014 12:52:00 10/08/2014 23:59:59 CLS Outpatient AUTUMN LINN [facility] ONC [place] [facility] [id number] 07/16/2014 11:11:00 07/18/2014 00:01:00 DIS Outpatient AUTUMN LINN [facility] ONC [place] [facility] [id number] 07/16/2014 11:13:00 07/16/2014 23:59:59 CLS Outpatient YARY PINZON FACC, MICHEL ESPINOZA CCDS [facility] LAB [id number] 06/14/2014 13:55:00 06/14/2014 23:59:59 CLS Outpatient DHARMESH ALVARADOP [facility] ONC [id number] 03/08/2014 11:16:00 03/13/2014 00:01:00 DIS Outpatient AUTUMN LINN [facility] ONC [place] [facility] [id number] 01/25/2014 09:57:00 01/25/2014 23:59:59 CLS Outpatient MICHEL PRINGLE MD, FACC, FACP CCDS [facility] LAB [id number] 12/13/2013 10:51:00 12/13/2013 23:59:59 CLS Outpatient MICHEL PRINGLE MD, FACC, FACP CCDS [facility] LAB [id number] 11/01/2013 13:29:00 11/06/2013 00:01:00 DIS Outpatient AUTUMN LINN [facility] ONC [place] [facility] [id number] 09/27/2013 10:06:00 09/27/2013 23:59:59 CLS Outpatient SAMI PINZON, YO R [facility] LAB [id number] 09/27/2013 10:01:00 09/27/2013 23:59:59 CLS Outpatient JOJO INIGUEZ RF TEST ENGINEER [facility] LAB [id number] 06/27/2013 09:44:00 07/19/2013 00:01:00 DIS Outpatient AUTUMN LINN [facility] ONC [place] [facility] [id number] 06/29/2013 14:19:00 06/29/2013 23:59:59 CLS Outpatient DHARMESH ALVARADO RF TEST ENGINEER [facility] ONC [id number] 06/27/2013 09:58:00 06/27/2013 23:59:59 CLS Outpatient MICHEL PRINGLE MD, FACC, FACP CCDS [facility] LAB [id number] 04/04/2013 22:27:00 04/05/2013 00:49:00 DIS Emergency MECHELLE GREER APRN [facility] ER ALLERGIC REACTION [id number] 03/13/2013 08:39:00 03/15/2013 00:01:00 DIS Outpatient AUTUMN LINN [facility] ONC [place] [facility] [id number] 03/13/2013 08:44:00 03/13/2013 23:59:59 CLS Outpatient MICHEL PRINGLE MD, FACC, FACP CCDS [facility] LAB [id number] 03/13/2013 08:42:00 03/13/2013 23:59:59 CLS Outpatient [id number] 03/08/2013 20:55:00 03/09/2013 00:25:00 DIS Emergency CARMELLA CAPELLAN MD [facility] ER SWOLLEN TONGUE [id number] 01/15/2013 13:05:00 01/15/2013 15:22:00 DIS Emergency RUDI BRISENO DO [facility] ER THROAT CLOSED [id number] 12/28/2017 05:29:00 Document Registration [id number] 12/28/2017 05:28:00 Document Registration [id number] 12/28/2017 05:28:00 Document Registration [id number] 12/28/2017 05:28:00 Document Registration [id number] 01/07/2015 07:36:00 Document Registration [id number] 12/15/2012 09:22:00 Document Registration [id number] 12/01/2012 11:41:00 Document Registration [id number] 06/16/2012 13:52:00 Document Registration [id number] 06/09/2012 09:37:00 Document Registration [id number] 06/09/2012 09:35:00 Document Registration [id number] 05/13/2011 09:34:00 Document Registration [id number] 07/28/2010 09:29:00 Document Registration [id number] 06/18/2010 10:39:00 Document Registration [id number] 06/18/2010 10:33:00 Document Registration [id number] 03/27/2010 08:58:00 Document Registration [id number] 08/05/2009 11:14:00 Document Registration [id number] 07/01/2009 10:06:00 Document Registration [id number] 06/18/2009 09:02:00 Document Registration [id number] 04/11/2009 12:35:00 Document Registration [id number] 03/21/2009 09:44:00 Document Registration [id number] 12/06/2008 12:12:00 Document Registration [id number] 11/15/2008 10:22:00 Document Registration [id number] 09/03/2008 13:13:00 Document Registration [id number] 08/27/2008 13:13:00 Document Registration [id number] 08/20/2008 14:13:00 Document Registration [id number] 08/13/2008 13:20:00 Document Registration [id number] 08/06/2008 11:03:00 Document Registration [id number] 07/30/2008 13:59:00 Document Registration [id number] 07/03/2008 13:45:00 Document Registration [id number] 06/26/2008 13:26:00 Document Registration [id number] 06/19/2008 13:11:00 Document Registration [id number] 06/12/2008 13:39:00 Document Registration [id number] 06/05/2008 13:20:00 Document Registration [id number] 05/04/2008 08:23:00 Document Registration [id number] 03/26/2008 05:40:00 Document Registration [id number] 03/21/2008 08:26:00 Document Registration [id number] 11/29/2007 09:03:00 Document Registration [id number] 07/22/2007 09:07:00 Document Registration [id number] 02/14/2007 09:30:00 Document Registration [id number] 01/06/2007 07:54:00 Document Registration [id number] 12/03/2006 10:30:00 Document Registration [id number] 06/16/2006 09:24:00 Document Registration [id number] 05/21/2006 08:30:00 Document Registration [id number] 05/11/2006 12:54:00 Document Registration [id number] 11/02/2005 10:17:00 Document Registration [id number] 10/29/2005 11:04:00 Document Registration
[2019-04-24] MEDS ORDERED: NS 100 ML (IVPB) BAG IV ONE (12:30)
[2019-04-24] MEDS ORDERED: HOLD METFORMIN - RECEIVED CONTRAST 20 ML VIAL IV SCH (12:30)
[2019-04-24] MEDS ORDERED: IOHEXOL 350 MG/ML 100 ML (OMNIPAQUE 350) VIAL IV ONE (12:30)
--- NOTE | 2019-04-24 13:22 | Diagnostic Imaging Report ---
PROCEDURE: CT abdomen and pelvis with contrast. TECHNIQUE: Multiple contiguous axial images were obtained through the abdomen and pelvis after administration of intravenous contrast. Auto Exposure Controls were utilized during the CT exam to meet ALARA standards for radiation dose reduction. INDICATION: Abdominal pain and cramping with nausea and vomiting. COMPARISON: Correlation is made with prior CT from 03/17/2019. FINDINGS: The lung bases are clear. Previously seen area of soft tissue thickening along the liver and undersurface of the right hemidiaphragm is again noted. This appears to be slightly increased in size in the transverse dimension. This measures 5.1 x 2.2 cm compared with 4.9 x 1.6 cm. No discrete liver mass is seen. The gallbladder is unremarkable. No biliary ductal dilatation is identified. The pancreas and spleen are unremarkable. No adrenal mass is detected. Aorta is heavily calcified but nonaneurysmal. There appear to be moderately fluid-filled distended small bowel loops in the abdomen. A bowel loop in the midline pelvis does appear to be circumferentially thickwalled. There is transition distally, and features are concerning for small bowel obstruction. No central retroperitoneal or mesenteric lymphadenopathy is identified. There is some free fluid in the pelvis. Bladder is unremarkable. No pelvic lymphadenopathy is seen. IMPRESSION: 1. Mild decrease in size of previously noted soft tissue mass between the liver and the right hemidiaphragm. 2. Development of kfzl-ct-phsisrkb fluid-filled distention of small bowel loops in the central abdomen with transition distally. Features are concerning for small bowel obstruction. No abscess formation or free air is identified. There is enjf-xl-laeoiabk free fluid present. Dictated by: Dictated on workstation # [id number]
--- NOTE | 2019-04-24 13:38 | ED Abdominal Pain ---
General Chief Complaint: Abdominal/GI Problems Stated Complaint: ABD PAIN Nursing Triage Note: PT AMB TO RM 10 WITH COMPLAINT OF ABD PAIN/CRAMPING, N/V THAT STARTED YESTERDAY. STATES BOWEL MOVEMENTS HAVE BEEN NORMAL FOR HER. Sepsis Screen: No Definite Risk Source of Information: Patient, Family Exam Limitations: No Limitations History of Present Illness Date Seen by Provider: Apr 24, 2019 Time Seen by Provider: 10:25 Initial Comments This 88-year-old patient with ovarian cancer presents to the emergency room with complaints of upper abdominal pain that started yesterday. She has had some constipation recently but had a bowel movement this morning that was normal. She denies any urinary changes other than decreased urine output. She is presently on chemotherapy for treatment of her ovarian cancer under the direction of Dr. Darling. Her last treatment was approximately 2 weeks ago. Her upper abdominal pain is new. She has no pain at rest but pain is rated as 4 out of 10 with palpation. Allergies and Home Medications Allergies Coded Allergies: carboplatin (Verified Allergy, Severe, 01/12/19) fexofenadine (Verified Allergy, Unknown, 01/07/15) hydrochlorothiazide (Verified Allergy, Unknown, 01/07/15) irbesartan (Verified Allergy, Unknown, 01/07/15) prednisone (Verified Allergy, Unknown, 01/21/10) ranitidine (Verified Allergy, Unknown, 01/21/10) Uncoded Allergies: TAPE (Allergy, Mild, 07/24/09) Home Medications Aspirin 81 Mg Tablet.dr, 81 MG PO HS, (Reported) Diphenhydramine HCl 25 Mg Capsule, 25 MG PO Q8H PRN for ALLERGIES, (Reported) Hydrochlorothiazide 25 Mg Tablet, 25 MG PO DAILY, (Reported) Lisinopril 10 Mg Tablet, 10 MG PO DAILY, (Reported) Omeprazole 40 Mg Capsule.dr, 40 MG PO DAILY, (Reported) Peg 400/Hypromellose/Glycerin 15 Ml Drops, 1-2 DROPS OP DAILY PRN for DRY EYES, (Reported) Patient Home Medication List Home Medication List Reviewed: Yes Review of Systems Review of Systems Constitutional: no symptoms reported EENTM: No Symptoms Reported Respiratory: No Symptoms Reported Cardiovascular: No Symptoms Reported Gastrointestinal: See HPI Genitourinary: See HPI Musculoskeletal: no symptoms reported Skin: no symptoms reported Psychiatric/Neurological: No Symptoms Reported Endocrine: No Symptoms Reported Hematologic/Lymphatic: See HPI Past Ylmfzge-Idjckb-Rsxpgg Hx Patient Social History Alcohol Use: Denies Use Recreational Drug Use: No Smoking Status: Former Smoker Type Used: Cigarettes Former Smoker, Quit: Nov 01, 1979 Recent Foreign Travel: No Contact w/Someone Who Travel: No Recent Infectious Disease Expo: No Recent Hopitalizations: No Physical Abuse: No Sexual Abuse: No Mistreated: No Fear: No Immunizations Up To Date Tetanus Booster (TDap): Unknown PED Vaccines UTD: No Date of Pneumonia Vaccine: Mar 18, 2012 Date of Influenza Vaccine: Jun 19, 2018 Seasonal Allergies Seasonal Allergies: No Past Medical History Surgeries: Yes (port placement, [place] TUMOR REMOVAL MARCH 2015, c/s x2, ) Abdominal, Section, Hysterectomy, Tonsillectomy Respiratory: Yes Asthma Currently Using CPAP: No Currently Using BIPAP: No Cardiac: Yes Hypertension Neurological: No Reproductive Disorders: No 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 Sexually Transmitted Disease: No HIV/AIDS: No Genitourinary: No Gastrointestinal: Yes Gastroesophageal Reflux, Diverticulosis Musculoskeletal: Yes (FX WRIST AT AGE 5; discitis T9 ) Arthritis Endocrine: Yes (hx of diabetes, no problems since 2014) Diabetes, Non-Insulin dep Cataract Loss of Vision: Denies Hearing Impairment: Denies Cancer: Yes Ovarian What Type of Treatment Did You: Chemotherapy, Surgical Intervention Psychosocial: No Integumentary: No Herpes Blood Disorders: Yes (anemia) Adverse Reaction/Blood Tranf: No Family Medical History Cancer of mouth 19 MOTHER Cardiovascular disease 19 MOTHER G8 BROTHER Congenital heart disease G8 BROTHER Physical Exam Vital Signs Vital Signs - First Documented 04/24/19 10:08 Temp 99.5 Pulse 110 Resp 20 B/P (MAP) 136/92 (107) Pulse Ox 96 O2 Delivery Room Air Capillary Refill : Less Than 3 Seconds Height/Weight/BMI Height: 5'4.00" Weight: 130lbs. 5.0oz. 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, no motor/sensory deficits, alert, normal mood/affect, oriented x 3, other (Tremor) Skin: normal color, warm/dry Progress/Results/Core Measures Results/Orders Lab Results Laboratory Tests Test 04/24/19 10:41 Range/Units White Blood Count 8.2 4.3-11.0 10^3/uL Red Blood Count 4.21 L 4.35-5.85 10^6/uL Hemoglobin 11.3 L 11.5-16.0 G/DL Hematocrit 36 35-52 % Mean Corpuscular Volume 85 80-99 FL Mean Corpuscular Hemoglobin 27 25-34 PG Mean Corpuscular Hemoglobin Concent 32 32-36 G/DL Red Cell Distribution Width 15.1 H 10.0-14.5 % Platelet Count 295 130-400 10^3/uL Mean Platelet Volume 9.1 7.4-10.4 FL Neutrophils (%) (Auto) 83 H 42-75 % Lymphocytes (%) (Auto) 11 L 12-44 % Monocytes (%) (Auto) 6 0-12 % Eosinophils (%) (Auto) 0 0-10 % Basophils (%) (Auto) 0 0-10 % Neutrophils # (Auto) 6.8 1.8-7.8 X 10^3 Lymphocytes # (Auto) 0.9 L 1.0-4.0 X 10^3 Monocytes # (Auto) 0.5 0.0-1.0 X 10^3 Eosinophils # (Auto) 0.0 0.0-0.3 10^3/uL Basophils # (Auto) 0.0 0.0-0.1 10^3/uL Sodium Level 139 135-145 MMOL/L Potassium Level 3.6 3.6-5.0 MMOL/L Chloride Level 104 98-107 MMOL/L Carbon Dioxide Level 23 21-32 MMOL/L Anion Gap 12 5-14 MMOL/L Blood Urea Nitrogen 19 H 7-18 MG/DL Creatinine 0.97 0.60-1.30 MG/DL Estimat Glomerular Filtration Rate 54 BUN/Creatinine Ratio 20 Glucose Level 163 H 70-105 MG/DL Calcium Level 9.6 8.5-10.1 MG/DL Corrected Calcium 10.0 8.5-10.1 MG/DL Total Bilirubin 0.3 0.1-1.0 MG/DL Aspartate Amino Transf (AST/SGOT) 15 5-34 U/L Alanine Aminotransferase (ALT/SGPT) < 6 0-55 U/L Alkaline Phosphatase 75 40-136 U/L Total Protein 6.6 6.4-8.2 GM/DL Albumin 3.5 3.2-4.5 GM/DL Lipase 30 8-78 U/L My Orders Orders - CARMELLA CAPELLAN MD Cbc With Automated Diff (04/24/19 10:25) Comprehensive Metabolic Panel (04/24/19 10:25) Lipase (04/24/19 10:25) Ua Culture If Indicated (04/24/19 10:25) Ed Iv/Invasive Line Start (04/24/19 10:25) Ondansetron Injection (Zofran Injectio (04/24/19 10:45) Ct Abdomen/Pelvis W (04/24/19 11:43) Iohexol Injection (Omnipaque 350 Mg/Ml 1 (04/24/19 12:30) Di Iv Start (Assessment) .IV start (04/24/19 12:19) Received Contrast (Hold Metformin- Contr (04/24/19 12:30) Ns (Ivpb) (Sodium Chloride 0.9% Ivpb Bag (04/24/19 12:30) Medications Given in ED Current Medications Medications Dose Ordered Sig/Hugh Route Start Time Stop Time Status Last Admin Dose Admin Iohexol 100 ml ONCE ONCE IV 04/24/19 12:30 04/24/19 12:37 DC 04/24/19 12:53 75 ML Sodium Chloride 100 ml ONCE ONCE IV 04/24/19 12:30 04/24/19 12:37 DC 04/24/19 12:53 80 ML Vital Signs/I&O 04/24/19 10:08 Temp 99.5 Pulse 110 Resp 20 B/P (MAP) 136/92 (107) Pulse Ox 96 O2 Delivery Room Air Blood Pressure Mean: 107 Progress Progress Note : Time: 13:56 Progress Note Lab workup was relatively unremarkable. UA is pending. CT was pursued given patient's history of ovarian cancer. CT revealed probable small bowel obstruction. Admission for observation was sought and discussed with Dr. Shearer and Dr. Golden. Nausea was treated with Zofran. NG tube was not placed as patient had no vomiting since arriving in the ER and stomach was decompressed on CT. Diagnostic Imaging Diagonstic Imaging: CT Plain Films/CT/US/NM/MRI: abdomen, pelvis Comments CT abdomen and pelvis viewed by me and report reviewed. See report below: NAME: CORBY HERNANDEZ [facility] REC#: [id number] PT STATUS: REG ER : 1929 PHYSICIAN: CARMELLA CAPELLAN MD ADMIT DATE: 04/24/19/ER Draft Date of Exam:04/24/19 CT ABDOMEN/PELVIS W PROCEDURE: CT abdomen and pelvis with contrast. TECHNIQUE: Multiple contiguous axial images were obtained through the abdomen and pelvis after administration of intravenous contrast. Auto Exposure Controls were utilized during the CT exam to meet ALARA standards for radiation dose reduction. INDICATION: Abdominal pain and cramping with nausea and vomiting. COMPARISON: Correlation is made with prior CT from 03/17/2019. FINDINGS: The lung bases are clear. Previously seen area of soft tissue thickening along the liver and undersurface of the right hemidiaphragm is again noted. This appears to be slightly increased in size in the transverse dimension. This measures 5.1 x 2.2 cm compared with 4.9 x 1.6 cm. No discrete liver mass is seen. The gallbladder is unremarkable. No biliary ductal dilatation is identified. The pancreas and spleen are unremarkable. No adrenal mass is detected. Aorta is heavily calcified but nonaneurysmal. There appear to be moderately fluid-filled distended small bowel loops in the abdomen. A bowel loop in the midline pelvis does appear to be circumferentially thickwalled. There is transition distally, and features are concerning for small bowel obstruction. No central retroperitoneal or mesenteric lymphadenopathy is identified. There is some free fluid in the pelvis. Bladder is unremarkable. No pelvic lymphadenopathy is seen. IMPRESSION: 1. Mild decrease in size of previously noted soft tissue mass between the liver and the right hemidiaphragm. 2. Development of eptj-ny-mnrxhvqt fluid-filled distention of small bowel loops in the central abdomen with transition distally. Features are concerning for small bowel obstruction. No abscess formation or free air is identified. There is hilo-zr-caxowpij free fluid present. Dictated on workstation # [id number] Dict: 04/24/19 1311 Trans: 04/24/19 1321 [id number] Interpreted by: CORY PATE MD Departure Communication (Admissions) Time/Spoke to Admitting Phy: 13:45 Dr. Golden Time/Spoke to Consulting Phy: 13:40 Dr. Shearer Impression Primary Impression: Small bowel obstruction Additional Impressions: Nausea and vomiting Qualified Codes: R11.2 - Nausea with vomiting, unspecified Upper abdominal pain Ovarian cancer Qualified Codes: C56.9 - Malignant neoplasm of unspecified ovary Disposition: 09 ADMITTED INPATIENT Condition: Improved Admissions Decision to Admit Reason: Admit from ER (General) Decision to Admit/Date: Apr 24, 2019 Time/Decision to Admit Time: 13:35 Departure-Patient Inst. Referrals: YO GALLARDO MD (PCP/Family) Primary Care Physician CARMELLA CAPELLAN MD Apr 24, 2019 13:37
--- NOTE | 2019-04-24 13:40 | NUR ---
Pastoral care visit.
[2019-04-24 14:55] VITALS: BP 121/63
[2019-04-24] MEDS ORDERED: ONDANSETRON 4 MG/2 ML (SDV) Z0FRAN IV PRN (15:00)
[2019-04-24] MEDS ORDERED: CATHETER FLUSH 10 ML SYR IV PRN (15:00)
[2019-04-24] MEDS: D5 1/2 NS W/KCL 20 MEQ/L 1,000 ML IV SCH ×2 (15:05→23:13)
[2019-04-24] MEDS: PANTOPRAZOLE 40 MG (PROTONIX) VIAL IV SCH (15:05)
[2019-04-24] MEDS ORDERED: PEG15DRO9 OP (15:15)
--- NOTE | 2019-04-24 15:18 | NUR ---
SPOKE WITH PT WELL GOING OVER THE EXT MED HISTORY TO COMPLETE THE MED REC. PAIN MEDICATIONS (NORCO AND TRAMADOL) HAVE BEEN PICKED UP IN THE LAST COUPLE MONTHS FOR EVONNE THEY WERE BOTH SMALL DAYS SUPPLIES BUT THE PT SAYS SHE IS NOT TAKING ANYTHING BECAUSE THEY DIDN'T HELP WITH THE PAIN. ALL THE OTHER MEDICATIONS ARE LISTED THE PT TAKES THEM OTC MEDS: ASPIRIN 81M HS BENADRYL 25M Q 8 H PRN ALLERGIES VISINE EYE DROPS: 1 -2 DROPS IN BOTH EYES ONCE D PRN DRY EYES
[2019-04-24 15:30] VITALS: BP 145/64
--- NOTE | 2019-04-24 17:51 | NUR ---
CORBY HERNANDEZ admitted to room 409-1, with an admitting diagnosis of small bowel obstruction, on 04/24/19 from ED via wheelchair, accompanied by staff. CORBY HERNANDEZ introduced to surroundings, call light, bed controls, phone, TV, temperature control, lights, meal times, smoking policy, visitor policy, side rail policy, bathrooms and showers. Patient Rights given to patient in the handbook. CORBY HERNANDEZ verbalizes understanding that [facility] is not responsible for the loss or damage to any personal effects or valuables that are kept in the patients possession during their hospitalization. The following Patient Care Plans were discussed with the patient: Discharge Planning, pain management, medications, and dehydration. CORBY HERNANDEZ verbalizes understanding of Interdisciplinary Patient Education. Patient and/or family were informed about the Rapid Response Team and its purpose.
--- NOTE | 2019-04-24 18:00 | Consultation - Surgery ---
KATIE MCNALLY,MED STUDENT 04/24/19 1800: History of Present Illness History of Present Illness Patient Consulted On(adrienne/time) 04/24/19 17:54 Date Seen by Provider: Apr 24, 2019 Time Seen by Provider: 17:50 Reason for Visit: R sided abdominal pain History of Present Illness Beginning yesterday morning, PT began experiencing sharp colicky RUQ abdominal pain. She says nothing makes it better, or worse, it stays localized to her RLQ and she has had no associated pain. States she has never experienced this pain before. Also admits constipation but has had a bowel movement today and vomited twice early this morning. Currently being treated with chemotherapy for ovarian cancer. Allergies and Home Medications Allergies Coded Allergies: carboplatin (Verified Allergy, Severe, 01/12/19) fexofenadine (Verified Allergy, Unknown, 01/07/15) hydrochlorothiazide (Verified Allergy, Unknown, 01/07/15) irbesartan (Verified Allergy, Unknown, 01/07/15) prednisone (Verified Allergy, Unknown, 01/21/10) ranitidine (Verified Allergy, Unknown, 01/21/10) Uncoded Allergies: TAPE (Allergy, Mild, 07/24/09) Home Medications Aspirin 81 Mg Tablet.dr, 81 MG PO HS, (Reported) Diphenhydramine HCl 25 Mg Capsule, 25 MG PO Q8H PRN for ALLERGIES, (Reported) Hydrochlorothiazide 25 Mg Tablet, 25 MG PO DAILY, (Reported) Lisinopril 10 Mg Tablet, 10 MG PO DAILY, (Reported) Omeprazole 40 Mg Capsule.dr, 40 MG PO DAILY, (Reported) Peg 400/Hypromellose/Glycerin 15 Ml Drops, 1-2 DROPS OP DAILY PRN for DRY EYES, (Reported) Patient Home Medication List Home Medication List Reviewed: Yes Past Vvirkdg-Leykpp-Lomtap Hx Patient Social History Alcohol Use: Denies Use Recreational Drug Use: No Smoking Status: Former Smoker Former Smoker, Quit: Nov 01, 1979 Type Used: Cigarettes Recent Foreign Travel: No Contact w/Someone Who Travel: No Recent Infectious Disease Expo: No Recent Hopitalizations: No Immunizations Up To Date Tetanus Booster (TDap): Unknown PED Vaccines UTD: No Date of Pneumonia Vaccine: Mar 18, 2012 Date of Influenza Vaccine: Jun 19, 2018 Seasonal Allergies Seasonal Allergies: No Surgeries History of Surgeries: Yes (port placement, [place] TUMOR REMOVAL MARCH 2015, c/s x2, ) Surgeries: Abdominal, Section, Hysterectomy, Tonsillectomy Respiratory History of Respiratory Disorde: Yes Respiratory Disorders: Asthma Cardiovascular History of Cardiac Disorders: Yes Cardiac Disorders: Hypertension Neurological History of Neurological Disord: No Reproductive System Hx Reproductive Disorders: No Sexually Transmitted Disease: No HIV/AIDS: No Female Reproductive Disorders: Denies 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 Genitourinary History of Genitourinary Disor: No Gastrointestinal History of Gastrointestinal Di: Yes Gastrointestinal Disorders: Gastroesophageal Reflux, Diverticulosis Musculoskeletal History of Musculoskeletal Dis: Yes (FX WRIST AT AGE 5; discitis T9 ) Musculoskeletal Disorders: Arthritis Endocrine History of Endocrine Disorders: Yes (hx of diabetes, no problems since 2014) Endocrine Disorders: Diabetes, Non-Insulin dep HEENT HEENT Disorders: Cataract Loss of Vision: Denies Hearing Impairment: Denies Cancer History of Cancer: Yes Cancer: Ovarian Psychosocial History of Psychiatric Problem: No Integumentary History of Skin or Integumenta: No Skin/Integumentary Disorders: Herpes Blood Transfusions History of Blood Disorders: Yes (anemia) Adverse Reaction to a Blood Tr: No Family Medical History Significant Family History: Heart Disease, Cancer, CAD Over 55 Years Old Family Medial History: Cancer of mouth 19 MOTHER Cardiovascular disease 19 MOTHER G8 BROTHER Congenital heart disease G8 BROTHER Review of Systems-General Constitutional: No chills, No diaphoresis, No fever EENTM: blurred vision (one episode of blurry vision 3 weeks ago, vision has returned); No hearing loss Respiratory: No cough, No dyspnea on exertion, No short of breath Cardiovascular: No chest pain, No edema Gastrointestinal: RLQ, abdominal pain (RLQ), constipation; No nausea; vomiting Genitourinary: decreased output (Scant urine past 2 days ); No dysuria, No frequency Musculoskeletal: back pain (B/L SI joint pain beginning 2 weeks ago ), joint pain (joint pain began 2 weeks ago in R leg, ascended to R SI joint, across to L SI joint ) Skin: No change in color, No lumps, No rash Psychiatric/Neurological: Denies Anxiety, Denies Headache Physical Exam-General Problems Physical Exam Vital Signs Vital Signs - First Documented 04/24/19 10:08 Temp 99.5 Pulse 110 Resp 20 B/P (MAP) 136/92 (107) Pulse Ox 96 O2 Delivery Room Air Capillary Refill : Less Than 3 Seconds General Appearance: WD/WN, thin Eyes: Bilateral Eye PERRL, Bilateral Eye EOMI HEENT: PERRL/EOMI, pharynx normal; No scleral icterus (R), No scleral icterus (L) Neck: non-tender, lymphadenopathy (R) (R anterior chain LAD nontender ), other Respiratory: lungs clear, normal breath sounds, no respiratory distress, no accessory muscle use Cardiovascular: regular rate, rhythm, no edema, no murmur Peripheral Pulses: 2+ Dorsalis Pedis (R), 2+ Left Dors-Pedis (L), 2+ Radial Pulses (R), 2+ Radial Pulses (L) Gastrointestinal: No distended; guarding (voluntary), tenderness Rectal: deferred Extremities: normal range of motion, normal inspection, no pedal edema, slow capillary refill Neurologic/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: 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, no motor/sensory deficits, alert, normal mood/affect, oriented x 3 Skin: warm/dry, pallor Lymphatic: other (R anterior cervical LAD, nontender) Data Review Labs Laboratory Tests 04/24/19 10:41: White Blood Count 8.2, Red Blood Count 4.21L, Hemoglobin 11.3L, Hematocrit 36, Mean Corpuscular Volume 85, Mean Corpuscular Hemoglobin 27, Mean Corpuscular Hemoglobin Concent 32, Red Cell Distribution Width 15.1H, Platelet Count 295, Mean Platelet Volume 9.1, Neutrophils (%) (Auto) 83H, Lymphocytes (%) (Auto) 11L , Monocytes (%) (Auto) 6, Eosinophils (%) (Auto) 0, Basophils (%) (Auto) 0, Neutrophils # (Auto) 6.8, Lymphocytes # (Auto) 0.9L, Monocytes # (Auto) 0.5, Eosinophils # (Auto) 0.0, Basophils # (Auto) 0.0, Sodium Level 139, Potassium Level 3.6, Chloride Level 104, Carbon Dioxide Level 23, Anion Gap 12, Blood Urea Nitrogen 19H, Creatinine 0.97, Estimat Glomerular Filtration Rate 54, BUN/Creatinine Ratio 20, Glucose Level 163H, Calcium Level 9.6, Corrected Calcium 10.0, Total Bilirubin 0.3, Aspartate Amino Transf (AST/SGOT) 15, Alanine Aminotransferase (ALT/SGPT) < 6, Alkaline Phosphatase 75, Total Protein 6.6, Albumin 3.5, Lipase 30 Assessment/Plan Assessment/Plan Assessment/Plan Partial small bowel obstruction Hx of ovarian cancer Plan is admit to med/surg, NPO, IV fluids, pain control, repeat labs in am, monitor abdomen, maximum medical management, SBFT with gastrograffin. Clinical Quality Measures DVT/VTE Risk/Contraindication: Risk Factor Score Per Nursin RFS Level Per Nursing on Admit: 4+=Very High LAMONTE SHEARER DO 04/24/19 2141: History of Present Illness History of Present Illness History of Present Illness Pt states she has never had a bowel obstruction, rates the pain as 5 out of 10 on 1-10 scale. Allergies and Home Medications Allergies Coded Allergies: carboplatin (Verified Allergy, Severe, 01/12/19) fexofenadine (Verified Allergy, Unknown, 01/07/15) hydrochlorothiazide (Verified Allergy, Unknown, 01/07/15) irbesartan (Verified Allergy, Unknown, 01/07/15) prednisone (Verified Allergy, Unknown, 01/21/10) ranitidine (Verified Allergy, Unknown, 01/21/10) Uncoded Allergies: TAPE (Allergy, Mild, 07/24/09) Home Medications Aspirin 81 Mg Tablet.dr, 81 MG PO HS, (Reported) Diphenhydramine HCl 25 Mg Capsule, 25 MG PO Q8H PRN for ALLERGIES, (Reported) Hydrochlorothiazide 25 Mg Tablet, 25 MG PO DAILY, (Reported) Lisinopril 10 Mg Tablet, 10 MG PO DAILY, (Reported) Omeprazole 40 Mg Capsule.dr, 40 MG PO DAILY, (Reported) Peg 400/Hypromellose/Glycerin 15 Ml Drops, 1-2 DROPS OP DAILY PRN for DRY EYES, (Reported) Patient Home Medication List Home Medication List Reviewed: Yes Past Gmdhvxf-Bbbfkn-Idnvll Hx Patient Social History Alcohol Use: Denies Use Recreational Drug Use: No Smoking Status: Former Smoker Family Medical History Family Medial History: Cancer of mouth 19 MOTHER Cardiovascular disease 19 MOTHER G8 BROTHER Congenital heart disease G8 BROTHER Review of Systems-General Other pt denies any history of abnormal bleeding or bruising Physical Exam-General Problems Physical Exam Eyes: Bilateral Eye PERRL, Bilateral Eye EOMI Lymphatic: no adenopathy (in axilla or groin), other (R anterior cervical LAD, nontender) Assessment/Plan Assessment/Plan Assessment/Plan Verification and Attestation of Medical Student E/M Service A medical student performed and documented this service in my presence. I reviewed and verified all information documented by the medical student and made modifications to such information, when appropriate. I personally performed the physical exam and medical decision making. Lamonte Shearer, Apr 24, 2019,21:39 Supervisory-Addendum Brief Verification & Attestation Time: Verification & Attestat.: 21:41 Participated in pt care: history, MDM, physical, procedure Personally performed: exam, history, MDM, supervision of care Care discussed with: Medical Student Procedures: n/a Verification and Attestation of Medical Student E/M Service A medical student performed and documented this service in my presence. I reviewed and verified all information documented by the medical student and made modifications to such information, when appropriate. I personally performed the physical exam and medical decision making. Lamonte Shearer, Apr 24, 2019,21:41 KATIE MCNALLY,MED STUDENT Apr 24, 2019 18:00 LAMONTE SHEARER DO Apr 24, 2019 21:41
[2019-04-24 19:25] VITALS: BP 114/71
[2019-04-24 23:35] VITALS: BP 136/73
[2019-04-25 03:30] VITALS: BP 148/75
[2019-04-25 06:05] LABS: BASOPHILS % (AUTO) 0 % (0-10); EOSINOPHILS # (AUTO) 0.1 10^3/uL (0.0-0.3); EOSINOPHILS % (AUTO) 2 % (0-10); HEMATOCRIT 30 % (35-52); HEMOGLOBIN 9.4 G/DL (11.5-16.0); LYMPHOCYTES # (AUTO) 1.3 X 10^3 (1.0-4.0); LYMPHOCYTES % (AUTO) 22 % (12-44); MEAN CORPUSCULAR HEMOGLOBIN 27 PG (25-34); MEAN CORPUSCULAR HGB CONC 31 G/DL (32-36); MEAN CORPUSCULAR VOLUME 86 FL (80-99); MEAN PLATELET VOLUME 9.1 FL (7.4-10.4); MONOCYTES # (AUTO) 0.9 X 10^3 (0.0-1.0); MONOCYTES % (AUTO) 15 % (0-12); NEUTROPHILS # (AUTO) 3.8 X 10^3 (1.8-7.8); NEUTROPHILS % (AUTO) 61 % (42-75); PLATELET COUNT 270 10^3/uL (130-400); RED CELL DISTRIBUTION WIDTH 15.4 % (10.0-14.5); WHITE BLOOD COUNT 6.1 10^3/uL (4.3-11.0)
[2019-04-25 06:25] LABS: ALBUMIN 2.9 GM/DL (3.2-4.5); BILIRUBIN,TOTAL 0.4 MG/DL (0.1-1.0); CALCIUM 8.9 MG/DL (8.5-10.1); CREATININE SERUM 0.99 MG/DL (0.60-1.30); POTASSIUM 4.2 MMOL/L (3.6-5.0); TOTAL PROTEIN 5.3 GM/DL (6.4-8.2)
[2019-04-25] MEDS: D5 1/2 NS W/KCL 20 MEQ/L 1,000 ML IV SCH (07:34)
[2019-04-25 08:00] VITALS: BP 113/72
[2019-04-25] MEDS ORDERED: DIATRIZOATE MEGLUM/SODIUM 37% 120 ML (GASTROGRAFIN) PO ONE (08:15)
[2019-04-25] MEDS: PANTOPRAZOLE 40 MG (PROTONIX) VIAL IV SCH (10:14)
[2019-04-25 12:00] VITALS: BP 134/61
--- NOTE | 2019-04-25 12:03 | Progress Note - Surgery ---
Subjective Time Seen by a Provider: 11:50 Subjective/Events-last exam Pt seen and examined, currently sitting on toilet. Denies abdominal pain and states she is hungry. She has had multiple BM's since the SBFT. Review of Systems General: No Chills, No Night Sweats Pulmonary: No Dyspnea, No Cough Cardiovascular: No: Chest Pain, Palpitations Gastrointestinal: No: Nausea, Vomiting Objective Exam Vital Signs Date Time Temp Pulse Resp B/P (MAP) Pulse Ox O2 Delivery O2 Flow Rate FiO2 04/25/19 08:00 98.2 100 20 113/72 (86) 98 Room Air 04/25/19 03:30 97.1 65 17 148/75 (99) 98 Room Air 04/24/19 23:35 98.3 91 18 136/73 (94) 96 Room Air 04/24/19 20:00 Room Air 04/24/19 19:25 98.3 96 19 114/71 (85) 93 Room Air 04/24/19 15:30 97.7 92 19 145/64 (91) 96 Room Air 04/24/19 15:00 Room Air 04/24/19 14:55 98.2 90 20 121/63 95 Room Air 04/24/19 14:44 74 24 136/81 (99) 96 Room Air I & O 04/25/19 07:00 Intake Total 1000 ml Output Total 200 ml Balance 800 ml Capillary Refill : Less Than 3 Seconds General Appearance: No Apparent Distress, Thin HEENT: PERRL/EOMI Respiratory: Lungs Clear, Normal Breath Sounds, No Accessory Muscle Use, No Respiratory Distress Cardiovascular: Regular Rate, Rhythm, No Murmur Peripheral Pulses: 2+ Dorsalis Pedis (R), 2+ Left Dors-Pedis (L), 2+ Radial Pulses (R), 2+ Radial Pulses (L) Gastrointestinal: normal bowel sounds, soft, tenderness (epigastrium and left upper quadrant - basically gone compared to yesterday) Results Lab Laboratory Tests 04/25/19 05:55: White Blood Count 6.1, Red Blood Count 3.47L, Hemoglobin 9.4L, Hematocrit 30L, Mean Corpuscular Volume 86, Mean Corpuscular Hemoglobin 27, Mean Corpuscular Hemoglobin Concent 31L, Red Cell Distribution Width 15.4H, Platelet Count 270, Mean Platelet Volume 9.1, Neutrophils (%) (Auto) 61, Lymphocytes (%) (Auto) 22, Monocytes (%) (Auto) 15H, Eosinophils (%) (Auto) 2, Basophils (%) (Auto) 0, Neutrophils # (Auto) 3.8, Lymphocytes # (Auto) 1.3, Monocytes # (Auto) 0.9, Eosinophils # (Auto) 0.1, Basophils # (Auto) 0.0, Sodium Level 136, Potassium Level 4.2, Chloride Level 105, Carbon Dioxide Level 21, Anion Gap 10, Blood Urea Nitrogen 14, Creatinine 0.99, Estimat Glomerular Filtration Rate 53, BUN/Creatinine Ratio 14, Glucose Level 160H, Calcium Level 8.9, Corrected Calcium 9.8, Total Bilirubin 0.4, Aspartate Amino Transf (AST/SGOT) 9, Alanine Aminotransferase (ALT/SGPT) 6, Alkaline Phosphatase 61, Total Protein 5.3L, Albumin 2.9L Assessment/Plan Assessment/Plan Assessment/Plan PSBO - resolved Plan to start liquids and increase as tolerated. Encourage ambulation and ok to go home when ok with medicine. Clinical Quality Measures DVT/VTE Risk/Contraindication: Risk Factor Score Per Nursin RFS Level Per Nursing on Admit: 4+=Very High DEVI MANNING DO Apr 25, 2019 12:03
--- NOTE | 2019-04-25 12:38 | Diagnostic Imaging Report ---
INDICATION: Abdominal pain and cramping with nausea and vomiting. TECHNIQUE: The patient was given 120 cc of Gastrografin contrast mixed with 120 cc of water and serial radiographs over the abdomen were obtained. FINDINGS: The preliminary radiograph of the abdomen does show overall improvement in the degree of small bowel distention when compared with the CT study of one day earlier. The initial images post contrast show contrast within the stomach and proximal small bowel loops. There appears to be normal progression of contrast through the small bowel to the right colon. Contrast is first seen in the right colon in approximately 1 hour. No mass is seen. IMPRESSION: No evidence of bowel obstruction. Dictated by: Dictated on workstation # [id number]
--- NOTE | 2019-04-25 12:46 | History & Physical-Hospitalist ---
AIDEE CARNEY,MED STUDENT 04/25/19 1246: History of Present Illness HPI/Chief Complaint Patient is an 88y/o F that presents to the ED with colicky RUQ abdominal pain that started yesterday. Nothing made the pain better or worse and she did not report any other symptoms. She said that she had not eaten or done any activity outside of her normal routine. She said that she has a history of cancer and is currently being treated for Renal cancer. Today the patient said that the RUQ pain is better but still present. Pt used the restroom during the interview. Pt denies headache, nausea, vomiting, diarrhea, constipation, fever, chills, diaphoresis, chest pain, SOB, numbness, tingling, weakness, dysuria, and incontinence. She admits to abdominal pain and loss of appetite. Patient is a poor historian Date Seen 04/25/19 Time Seen by a Provider: 13:00 Attending Physician Alex Golden MD PCP Yo Gonzalez MD Referring Physician Date of Admission Apr 24, 2019 at 14:32 Home Medications & Allergies Home Medications Reviewed patient Home Medication Reconciliation performed by pharmacy medication reconciliations auto glass technician and/or nursing. Patients Allergies have been reviewed. Allergies Allergies Coded Allergies carboplatin (Verified Allergy, Severe, anaphylaxis, 04/25/19) fexofenadine (Verified Allergy, Unknown, 01/07/15) hydrochlorothiazide (Verified Allergy, Unknown, 01/07/15) irbesartan (Verified Allergy, Unknown, 01/07/15) prednisone (Verified Allergy, Unknown, 01/21/10) ranitidine (Verified Allergy, Unknown, 01/21/10) Uncoded Allergies TAPE ( Allergy, Mild, 07/24/09) Past Woprrvt-Siidbd-Zlxxla Hx Patient Social History Marrital Status: single, Number of Children: 3 Number of living children: 2 Employed/Student: retired Alcohol Use: Denies Use Recreational Drug Use: No Smoking Status: Former Smoker Cigaretts per day: 90 Former Smoker, Quit: Nov 01, 1979 Type Used: Cigarettes Recent Foreign Travel: No Contact w/other who traveled: No Recent Hopitalizations: No Recent Infectious Disease Expo: No Immunizations Up To Date Tetanus Booster (TDap): Unknown Pediatric: No Date of Pneumonia Vaccine: Mar 18, 2012 Date of Influenza Vaccine: Jun 19, 2018 Seasonal Allergies Seasonal Allergies: No Past Medical History Surgeries: Abdominal, Section, Hysterectomy, Tonsillectomy Currently Using CPAP: No Currently Using BIPAP: No Cardiac: Hypertension Reproductive: No Sexually Transmitted Disease: No HIV/AIDS: No Female Reproductive Disorders: Denies Hysterectomy Gastrointestinal: Gastroesophageal Reflux, Diverticulosis Musculoskeletal: Arthritis Endocrine: Diabetes, Non-Insulin dep HEENT: Cataract Loss of Vision: Denies Hearing Impairment: Denies Cancer: Ovarian What Type of Treatment Did You: Chemotherapy, Surgical Intervention Skin/Integumentary: Herpes History of Blood Disorders: Yes (anemia) Adverse Reaction to Blood Coker: No Family History Cancer of mouth 19 MOTHER Cardiovascular disease 19 MOTHER G8 BROTHER Congenital heart disease G8 BROTHER Heart Disease, Cancer, CAD Over 55 Years Old Review of Systems Constitutional: see HPI Respiratory: see HPI Cardiovascular: see HPI Gastrointestinal: see HPI Genitourinary: see HPI : No Musculoskeletal: see HPI Psychiatric/Neurological: See HPI Physical Exam Physical Exam Vital Signs Vital Signs - First Documented 04/24/19 10:08 Temp 99.5 Pulse 110 Resp 20 B/P (MAP) 136/92 (107) Pulse Ox 96 O2 Delivery Room Air Capillary Refill : Less Than 3 Seconds Height, Weight, BMI Height: 5'5.00" Weight: 120lbs. 0.0oz. 54.481563ph; 20.0 BMI Method:Stated General Appearance: No Apparent Distress, WD/WN Neurologic/Psychiatric: Alert, Oriented x3, Normal Mood/Affect Results Results/Procedures Labs Laboratory Tests 04/25/19 05:55 Patient resulted labs reviewed. Assessment/Plan Admission Diagnosis Small bowel obstruction Admission Status: Observation Assessment and Plan Small bowel obstruction * surgery consult * CT of abdomen and pelvis - showed small bowel obstruction * Small bowel follow through - showed resolution of small bowel obstruction * CMP * CBC w/ diff * IV hydration HTN * hold lisinopril 10mg QD and HCTZ 25mg QD- BP is well controlled without med GERD * omeprazole 40mg QD Ovarian cancer * last chemo = 2wks ago * ANC normal FENGIPPX * Fluids- D5W 1/2NS with 20mEq KCl * Electrolytes - no electrolyte abnormalities * nutrition - advanced to clear liquid diet * GI ppx - not indicated * ppx - SCDs Clinical Quality Measures DVT/VTE Risk/Contraindication: Risk Factor Score Per Nursin RFS Level Per Nursing on Admit: 4+=Very High Copy Copies To 1: YO GONZALEZ MD, KATELYN M MD 04/25/19 1532: Past Bogbipz-Jowqhd-Kuvyho Hx Past Med/Social Hx: Reviewed Nursing Past Med/Soc Hx Family History Reviewed Nursing Family Hx Cancer of mouth 19 MOTHER Cardiovascular disease 19 MOTHER G8 BROTHER Congenital heart disease G8 BROTHER Assessment/Plan Assessment and Plan SBO now resolved, tolerating diet. Patient requesting DC home. Will DC home with strict return precautions. Diagnosis/Problems Diagnosis/Problems (1) Small bowel obstruction Status: Acute (2) Ovarian cancer Status: Acute Qualifiers: Laterality: unspecified laterality Qualified Codes: C56.9 - Malignant neoplasm of unspecified ovary (3) HTN (hypertension) Status: Chronic (4) Anemia Status: Chronic (5) T2DM (type 2 diabetes mellitus) Status: Chronic Copy Copies To 1: YO GONZALEZ MD Supervisory-Addendum Brief Verification & Attestation Time: Verification & Attestat.: 15:27 Participated in pt care: history, MDM, physical Personally performed: exam, history, MDM, supervision of care Care discussed with: Medical Student Procedures: n/a Results interpretation: Verified all documentation Verification and Attestation of Medical Student E/M Service A medical student performed and documented this service in my presence. I reviewed and verified all information documented by the medical student and made modifications to such information, when appropriate. I personally performed the physical exam and medical decision making. Alex Golden, Apr 25, 2019,15:27 AIDEE CARNEY,MED STUDENT Apr 25, 2019 12:46 ALEX GOLDEN MD Apr 25, 2019 15:32
--- NOTE | 2019-04-25 14:35 | Discharge Inst-Simple/Standard ---
Discharge Inst-Standard Patient Instructions/Follow Up Plan of Care/Instructions/FU: Please continue on your medications as written. Please follow up with your PCP in the next week to follow up this hospital stay. Activity as Tolerated: Yes Discharge Diet: Other Diet (Clear Liquid Diet) Return to The Hospital For: Worsening abdominal pain, fever, chills, inability to keep food own, if you feel you are getting worse. ALEX WEINER MD Apr 25, 2019 2:35 pm
[2019-04-25 16:00] VITALS: BP 130/79
--- NOTE | 2019-04-26 08:51 | NUR ---
On ,pt discharged to her home. Pt's niece also lives with her. [facility] and has an appt. on .She had no continued care needs.
== END 2019-04-25 17:51 | disposition home or self-care (01) ==
LOC: EDUNIT# 10:00 → ER 10:01 → UNDOADMOB 14:32 → 4TH 14:32 → UNDODISOB 04-25 19:35
PROVIDERS: ADMIT Family Medicine; ATTEND Family Medicine
DX: K56.609 Unspecified intestinal obstruction, unspecified as to partial versus complete obstruction (principal); K21.9 Gastro-esophageal reflux disease without esophagitis; K57.90 Diverticulosis of intestine, part unspecified, without perforation or abscess without bleeding; E11.36 Type 2 diabetes mellitus with diabetic cataract; J45.909 Unspecified asthma, uncomplicated; M19.90 Unspecified osteoarthritis, unspecified site; Z79.82 Long term (current) use of aspirin; Z87.891 Personal history of nicotine dependence; Z90.710 Acquired absence of both cervix and uterus; Z79.899 Other long term (current) drug therapy; Z82.49 Family history of ischemic heart disease and other diseases of the circulatory system; Z80.8 Family history of malignant neoplasm of other organs or systems; Z82.79 Family history of other congenital malformations, deformations and chromosomal abnormalities; Z88.8 Allergy status to other drugs, medicaments and biological substances; Z88.2 Allergy status to sulfonamides
CPT/HCPCS: 36415; 74177; 74250; 80053; 83690; 85025; 96374; G0378

== ENCOUNTER → 2019-06-23 | Outpatient (CLI) | payer MEDICARE, OTHER ==
[~2019-06-23] MED LIST changes: +BARIUM SUSPENSION 2.1% (VANILLA SILQ) 450 ML PO ONE; +CATHETER FLUSH 10 ML SYR IV PRN; +HOLD METFORMIN - RECEIVED CONTRAST 20 ML VIAL IV SCH; +IOHEXOL 350 MG/ML 100 ML (OMNIPAQUE 350) VIAL IV ONE; +NS 100 ML (IVPB) BAG IV ONE; +PEG15DRO9 OP
--- NOTE | 2019-06-23 15:00 | Diagnostic Imaging Report ---
PROCEDURE: CT chest with contrast, CT abdomen and pelvis with and without contrast. TECHNIQUE: Pre and post intravenous contrast axial imaging of the abdomen and pelvis and post contrast axial imaging of the chest were performed. Auto Exposure Controls were utilized during the CT exam to meet ALARA standards for radiation dose reduction. INDICATION: Ovarian carcinoma. COMPARISON: Correlation is made with prior CT chest from 03/17/[address] abdomen and pelvis from 04/24/2019. CT CHEST: Left chest wall port remains in place with tip in the SVC. No axillary lymphadenopathy is detected. No definite hilar or mediastinal lymphadenopathy is detected. No pericardial or pleural fluid is identified. Area of scarring or atelectasis in the anterior aspect of the right upper lobe is stable. No discrete parenchymal mass is identified. Central airways are patent. IMPRESSION: Stable CT chest when compared to exam from 03/17/2019. CT ABDOMEN AND PELVIS: Previously noted abnormal soft tissue between the liver and undersurface of the right hemidiaphragm is again noted. This again shows some increase in size measuring 5.6 cm AP x 3.1 cm transverse compared with 5.1 cm AP x 2.2 cm transverse on prior. No discrete liver mass is detected. The gallbladder is unremarkable. No bile duct dilatation is seen. Pancreas and spleen are unremarkable. No adrenal mass is detected. Kidneys are unremarkable. Aorta is heavily calcified but nonaneurysmal. Bowel loops are normal caliber. No obstruction is seen. There is diverticulosis of the sigmoid but no evidence of acute diverticulitis. There is no ascites. No definite abdominal or pelvic lymphadenopathy is seen. There is an area of soft tissue density in the right lower quadrant which appears to be involving distal small bowel loops. This is indeterminate. This is best seen on images [id number], series 3. No other suspicious abnormality is seen. IMPRESSION: 1. Increase in size of soft tissue density interposed between the liver and undersurface of the right hemidiaphragm. 2. Questionable mass involving a bowel loop in the right lower quadrant which appears to be a small bowel loop. 3. Uncomplicated diverticulosis. 4. No other significant abnormality is seen. Dictated by: Dictated on workstation # [id number]
== END ==
LOC: RAD 12:21
PROVIDERS: ATTEND Nurse Practitioner Adult Health
DX: Z01.89 Encounter for other specified special examinations (principal); C56.9 Malignant neoplasm of unspecified ovary; K76.89 Other specified diseases of liver; K57.30 Diverticulosis of large intestine without perforation or abscess without bleeding
CPT/HCPCS: 71260; 74178

== ENCOUNTER 2019-07-05 10:18 | Outpatient (RCR) | payer MEDICARE, OTHER ==
[2019-05-11 13:02] LABS: BASOPHILS % (AUTO) 0 % (0-10); EOSINOPHILS # (AUTO) 0.1 10^3/uL (0.0-0.3); EOSINOPHILS % (AUTO) 1 % (0-10); HEMATOCRIT 31 % (35-52); HEMOGLOBIN 9.8 G/DL (11.5-16.0); LYMPHOCYTES # (AUTO) 1.8 X 10^3 (1.0-4.0); LYMPHOCYTES % (AUTO) 27 % (12-44); MEAN CORPUSCULAR HEMOGLOBIN 27 PG (25-34); MEAN CORPUSCULAR HGB CONC 32 G/DL (32-36); MEAN CORPUSCULAR VOLUME 85 FL (80-99); MEAN PLATELET VOLUME 8.7 FL (7.4-10.4); MONOCYTES # (AUTO) 0.8 X 10^3 (0.0-1.0); MONOCYTES % (AUTO) 12 % (0-12); NEUTROPHILS % (AUTO) 60 % (42-75); PLATELET COUNT 341 10^3/uL (130-400); RED CELL DISTRIBUTION WIDTH 15.3 % (10.0-14.5); WHITE BLOOD COUNT 6.7 10^3/uL (4.3-11.0)
[2019-05-11 13:31] LABS: ALANINE AMINOTRANSFERASE < 6 U/L (0-55); ALBUMIN 3.6 GM/DL (3.2-4.5); ALKALINE PHOSPHATASE 73 U/L (40-136); BILIRUBIN,TOTAL 0.2 MG/DL (0.1-1.0); BUN/CREATININE RATIO 24; CALCIUM 9.4 MG/DL (8.5-10.1); CARBON DIOXIDE 21 MMOL/L (21-32); CHLORIDE 102 MMOL/L (98-107); CREATININE SERUM 0.83 MG/DL (0.60-1.30); GFR ESTIMATED > 60; GLUCOSE 89 MG/DL (70-105); SODIUM 135 MMOL/L (135-145); TOTAL PROTEIN 6.6 GM/DL (6.4-8.2)
[2019-06-20 08:46] LABS: BASOPHILS % (AUTO) 0 % (0-10); EOSINOPHILS # (AUTO) 0.1 10^3/uL (0.0-0.3); EOSINOPHILS % (AUTO) 1 % (0-10); HEMATOCRIT 30 % (35-52); HEMOGLOBIN 9.4 G/DL (11.5-16.0); LYMPHOCYTES # (AUTO) 0.8 X 10^3 (1.0-4.0); LYMPHOCYTES % (AUTO) 11 % (12-44); MEAN CORPUSCULAR HEMOGLOBIN 26 PG (25-34); MEAN CORPUSCULAR HGB CONC 32 G/DL (32-36); MEAN CORPUSCULAR VOLUME 82 FL (80-99); MEAN PLATELET VOLUME 8.5 FL (7.4-10.4); MONOCYTES # (AUTO) 0.7 X 10^3 (0.0-1.0); MONOCYTES % (AUTO) 10 % (0-12); NEUTROPHILS # (AUTO) 5.7 X 10^3 (1.8-7.8); NEUTROPHILS % (AUTO) 78 % (42-75); PLATELET COUNT 325 10^3/uL (130-400); RED CELL DISTRIBUTION WIDTH 14.8 % (10.0-14.5); WHITE BLOOD COUNT 7.3 10^3/uL (4.3-11.0)
[2019-06-20 09:02] LABS: ALBUMIN 3.5 GM/DL (3.2-4.5); BILIRUBIN,TOTAL 0.5 MG/DL (0.1-1.0); CALCIUM 9.2 MG/DL (8.5-10.1); CREATININE SERUM 1.05 MG/DL (0.60-1.30); POTASSIUM 4.2 MMOL/L (3.6-5.0); TOTAL PROTEIN 6.5 GM/DL (6.4-8.2)
[~2019-07-05 10:18] MED LIST changes: -BARIUM SUSPENSION 2.1% (VANILLA SILQ) 450 ML PO ONE; -CATHETER FLUSH 10 ML SYR IV PRN; -HOLD METFORMIN - RECEIVED CONTRAST 20 ML VIAL IV SCH; -IOHEXOL 350 MG/ML 100 ML (OMNIPAQUE 350) VIAL IV ONE; -NS 100 ML (IVPB) BAG IV ONE
== END 2019-08-09 | disposition home or self-care (01) ==
LOC: ONC 10:18
PROVIDERS: ATTEND Internal Medicine Hematology & Oncology
DX: C56.2 Malignant neoplasm of left ovary (principal); C79.2 Secondary malignant neoplasm of skin; D50.9 Iron deficiency anemia, unspecified; N18.3 Chronic kidney disease, stage 3 (moderate); Z79.899 Other long term (current) drug therapy; Z92.21 Personal history of antineoplastic chemotherapy
CPT/HCPCS: 36591; 80053; 85025; 86304; 99213